=== PATIENT | male | born 1980 | race Caucasian/White ===

== ENCOUNTER 2020-04-08 10:39 | Emergency (ER) | payer MEDICARE, OTHER ==
[~2020-04-08] VITALS: Ht 165.1 cm; Wt 76.1 kg
[2020-04-08 10:45] VITALS: BP 144/89
[2020-04-08 12:31] LABS: BASOPHILS % (AUTO) 0.4 % (0-1); EOSINOPHILS # (AUTO) 0.1 X10'3 (0-0.9); EOSINOPHILS % (AUTO) 1.1 % (0-6); HEMATOCRIT 35.5 % (42.0-52.0); HEMOGLOBIN 12.1 g/dl (14.0-17.9); LYMPHOCYTES # (AUTO) 1.7 X10'3 (1.1-4.8); LYMPHOCYTES % (AUTO) 15.1 % (21-51); MEAN CORPUSCULAR HEMOGLOBIN 32.8 PG (27.0-31.0); MEAN CORPUSCULAR VOLUME 96.4 FL (78-98); MEAN PLATELET VOLUME 7.9 FL (7.4-10.4); MONOCYTES # (AUTO) 2.1 X10'3 (0-0.9); MONOCYTES % (AUTO) 18.1 % (2-12); NEUTROPHILS # (AUTO) 7.5 X10'3 (1.8-7.7); NEUTROPHILS % (AUTO) 65.3 % (42-75); PLATELET COUNT 201 X10'3 (140-440); RED BLOOD COUNT 3.68 X10'6 (4.70-6.10); RED CELL DISTRIBUTION WIDTH 13.3 % (11.5-14.5); WHITE BLOOD COUNT 11.4 X10'3 (4.5-11.0)
[2020-04-08 12:42] LABS: CLARITY,URINE SLIGHTLY CLOUDY (Clear); COLOR,URINE YELLOW (Yellow); GLUCOSE, URINE NEGATIVE (Neg); KETONES,URINE NEGATIVE (Neg); LEUKOCYTE ESTERASE ,URINE SMALL (Neg); NITRITES, URINE POSITIVE (Neg); OCCULT BLOOD,URINE NEGATIVE (Neg); PH,URINE 6.5 (4.8-8.0); PROTEIN,URINE NEGATIVE (Neg)
[2020-04-08 12:44] LABS: ALANINE AMINOTRANSFERASE 38 U/L (12-78); ALBUMIN 3.1 G/DL (3.4-5.0); ALBUMIN/GLOBULIN RATIO 0.6 (1.1-1.5); ALKALINE PHOSPHATASE 94 IU/L (46-116); ANION GAP 10 (8-16); ASPARTATE AMINO TRANSFERASE 36 U/L (10-37); BILIRUBIN,TOTAL 1.2 MG/DL (0.1-1.0); BLOOD UREA NITROGEN 10 MG/DL (7-18); BUN/CREATININE RATIO 13.7 (5.4-32.0); CALCIUM 9.4 MG/DL (8.5-10.1); CHLORIDE 105 MMOL/L (99-107); CREATININE 0.73 MG/DL (0.60-1.10); GLUCOSE 90 MG/DL (70-104); LIPASE < 50 U/L (73-393); POTASSIUM 3.5 MMOL/L (3.5-5.1); SODIUM 139 MMOL/L (135-145); TOTAL CARBON DIOXIDE 24.1 MMOL/L (24-32); eGFR > 90 ML/MIN
[2020-04-08] MEDS ORDERED: BACDS PO (12:51)
[2020-04-08 13:11] LABS: PLATELET ESTIMATE NORMAL; TOTAL CELLS COUNTED 100
[2020-04-08 13:29] LABS: MUCUS STRANDS FEW /LPF (Neg); SQUAMOUS EPITHELIAL CELL,UR FEW /LPF (FEW)
[2020-04-08 13:32] LABS: BACTERIA,URINE 3+ /HPF (Neg); WBC,URINE 0-4 /HPF (0-4)
[2020-04-08 13:34] LABS: RBC,URINE NONE SEEN /HPF (0-2)
[2020-04-08 14:18] LABS: UA COLLECTION TYPE CLN CATCH MIDSTREAM
== END 2020-04-08 13:42 | disposition home or self-care (01) ==
LOC: ER 10:40
DX: T83.518A Infection and inflammatory reaction due to other urinary catheter, initial encounter (principal); N39.0 Urinary tract infection, site not specified; Z88.0 Allergy status to penicillin; Z79.2 Long term (current) use of antibiotics
CPT/HCPCS: 80053; 81001; 83690; 85007; 85025; 87077; 87088; 87186; 99283

== ENCOUNTER 2023-04-03 00:09 | Inpatient (IN) | payer OTHER, MEDICARE ==
[~2023-04-03] VITALS: Ht 177.8 cm; Wt 81.0 kg
[2023-04-03] VITALS (24 sets, daily range): BP systolic 99–152; BP diastolic 50–126; PULSE 85–110; RESP 11–28; O2SAT 93–100
[2023-04-03] MEDS ORDERED: normal saline 1000ML IV soln IVB ONE (00:15)
[2023-04-03] MEDS ORDERED: thiamine 100mg/ml 2ml inj. IV ONE (00:15)
[2023-04-03 00:55] LABS: BASOPHILS # (AUTO) 0.1 X10'3 (0-0.2)
[2023-04-03 00:57] LABS: BASOPHILS % (AUTO) 0.6 % (0-1); EOSINOPHILS % (AUTO) 0.1 % (0-6); HEMATOCRIT 42.1 % (42.0-52.0); HEMOGLOBIN 14.7 g/dl (14.0-17.9); LYMPHOCYTES # (AUTO) 1.8 X10'3 (1.1-4.8); LYMPHOCYTES % (AUTO) 18.7 % (21-51); MEAN CORPUSCULAR HEMOGLOBIN 35.8 PG (27.0-31.0); MEAN CORPUSCULAR HGB CONC 34.9 g/dL (33.0-36.5); MEAN CORPUSCULAR VOLUME 102.7 FL (78-98); MEAN PLATELET VOLUME 9.2 FL (7.4-10.4); MONOCYTES # (AUTO) 1.2 X10'3 (0-0.9); MONOCYTES % (AUTO) 12.9 % (2-12); NEUTROPHILS # (AUTO) 6.5 X10'3 (1.8-7.7); NEUTROPHILS % (AUTO) 67.7 % (42-75); PLATELET COUNT 185 X10'3 (140-440); RED CELL DISTRIBUTION WIDTH 13.4 % (11.5-14.5); WHITE BLOOD COUNT 9.6 X10'3 (4.5-11.0)
[2023-04-03 01:13] LABS: ABG BASE EXCESS -14.3 mmol/L (-2.0-2.0); ABG HCO3 7.9 mmol/L (22.0-26.0); ABG OXYGEN SATURATION 99.9 % (94-97); ABG PCO2 (T) 14.1 mmHg (35.0-48.0); ABG PH (T) 7.362 (7.340-7.440); ABG PO2 (T) 291.5 mmHg (75.0-100.0); ALLEN'S TEST POSITIVE; FCOHb 0.6 % (0.0-3.9); FHHb 0.1 % (0.0-5.0); FMetHb 0.3 % (0.0-1.5); MODE MASK - BIPAP; PATIENT TEMPERATURE 36.3; RESPIRATORY RATE 14 b/min; TOTAL HEMOGLOBIN 15.9 G/dl (14.0-17.9)
[2023-04-03 01:21] LABS: INR 1.2 INR; PROTHROMBIN TIME 12.7 SECONDS (9.0-12.0)
--- NOTE | 2023-04-03 01:45 | NUR ---
aware of critical values
[2023-04-03] MEDS ORDERED: CALCIUM GLUC 1gm/50ml NACL,iso 50 ML IV ONE ×2 (02:00→09:30)
[2023-04-03] MEDS ORDERED: ringers solution, lactated 500ml IV solution IV ONE (02:00)
[2023-04-03] MEDS ORDERED: magnesium 2GM in 50ml NS 50 ML IV ONE (02:00)
[2023-04-03] MEDS ORDERED: ringers solution, lacted 1,000 ML IV ONE ×2 (02:00)
[2023-04-03 02:19] LABS: BILIRUBIN,URINE LARGE (Neg); CLARITY,URINE CLOUDY (Clear); COLOR,URINE AMBER (Yellow); GLUCOSE, URINE 100 mg/dl (Neg); KETONES,URINE TRACE mg/dl (Neg); LEUKOCYTE ESTERASE ,URINE TRACE (Neg); NITRITES, URINE POSITIVE (Neg); OCCULT BLOOD,URINE SMALL (Neg); PROTEIN,URINE 100 mg/dl (Neg)
[2023-04-03 02:25] LABS: UA COLLECTION TYPE FOLEY CATH
[2023-04-03 02:26] LABS: SQUAMOUS EPITHELIAL CELL,UR NONE SEEN /LPF (FEW)
[2023-04-03 02:29] LABS: FINE GRANULAR CAST 0-3 /LPF (NEGATIVE)
[2023-04-03 02:30] LABS: BACTERIA,URINE 4+ /HPF (Neg); RBC,URINE 0-2 /HPF (0-2)
[2023-04-03 04:07] LABS: ALANINE AMINOTRANSFERASE 108 U/L (12-78); ALBUMIN 1.6 G/DL (3.4-5.0); ALKALINE PHOSPHATASE 67 IU/L (46-116); ANION GAP 26 (8-16); ASPARTATE AMINO TRANSFERASE 254 U/L (10-37); BILIRUBIN,TOTAL 4.1 MG/DL (0.1-1.0); BLOOD UREA NITROGEN 60 MG/DL (7-18); BUN/CREATININE RATIO 11.4 (10.0-20.0); CHLORIDE 78 MMOL/L (99-107); CREATININE 5.25 MG/DL (0.60-1.10); ETHANOL < 10 MG/DL (<10); GLUCOSE 80 MG/DL (70-104); eCRCL 19 ML/MIN; eGFR 12 ML/MIN
[2023-04-03 04:24] LABS: ALBUMIN/GLOBULIN RATIO 0.5 (1.1-1.5)
[2023-04-03 04:28] LABS: CREATINE KINASE 2400 U/L (39-308)
[2023-04-03 04:29] LABS: POTASSIUM 5.4 MMOL/L (3.5-5.1)
[2023-04-03 04:36] LABS: SODIUM 115 MMOL/L (135-145); TOTAL CARBON DIOXIDE 10.6 MMOL/L (24-32)
[2023-04-03 04:37] LABS: CALCIUM 5.9 MG/DL (8.5-10.1); MAGNESIUM 0.9 MG/DL (1.5-2.4)
--- NOTE | 2023-04-03 05:10 | NUR ---
Patient in room ICU 2040. I have received report from Ania LEGER and had the opportunity to ask questions and assume patient care. Pt from ER on Alyssa.
[2023-04-03] MEDS ORDERED: magnesium 4gm in 100ml NS 100 ML IV ONE (05:40)
[2023-04-03] MEDS ORDERED: sodium bicarbonate (8.4%) 1 mEq/ml syringe IV ONE (05:40)
[2023-04-03] MEDS ORDERED: vancomycin/NS 1 GM ADD-VANTAGE 250 ML IV ONE (05:40)
[2023-04-03] MEDS ORDERED: sodium bicarbonate (8.4%) 1 mEq/ml syringe ONE (05:52)
[2023-04-03] MEDS ORDERED: piperacillin/tazo 3.375gm/50ml 50 ML IV ONE (05:55)
[2023-04-03] MEDS ORDERED: VANCOMYCIN 1,500MG in normal saline IV soln 300 ML IV ONE (06:00)
--- NOTE | 2023-04-03 06:39 | NUR ---
Patient in room ICU 2040. I have received report from Alyson LEGER and had the opportunity to ask questions and assume patient care.
[2023-04-03] MEDS: sodium bicarbonate (8.4%) inj. 150 MEQ in dextrose 5%-water 1,000 ML IV SCH ×3 (06:53→20:44)
--- NOTE | 2023-04-03 07:08 | NUR ---
Problems reprioritized. Patient report given, questions answered & plan of care reviewed with Karlene LEGER.
[2023-04-03] MEDS: thiamine 100mg/ml 2ml inj. IV SCH ×3 (07:31→20:45)
[2023-04-03] MEDS: heparin, porcine 5000 units/ml vial SQ SCH ×3 (07:31→23:33)
[2023-04-03 07:56] LABS: ALBUMIN 1.4 G/DL (3.4-5.0); ANION GAP 21 (8-16); BLOOD UREA NITROGEN 58 MG/DL (7-18); BUN/CREATININE RATIO 13.2 (10.0-20.0); CHLORIDE 81 MMOL/L (99-107); CREATININE 4.41 MG/DL (0.60-1.10); GLUCOSE 94 MG/DL (70-104); TOTAL CARBON DIOXIDE 15.8 MMOL/L (24-32); eCRCL 22 ML/MIN; eGFR 15 ML/MIN
[2023-04-03] MEDS ORDERED: pantoprazole 40MG/NS 100ML BAG 100 ML IV SCH (08:00)
[2023-04-03] MEDS ORDERED: thiamine 100mg/ml 2ml inj. IV SCH (08:00)
[2023-04-03] MEDS ORDERED: folic acid 1mg/0.2ml inj IV SCH (08:00)
[2023-04-03] MEDS ORDERED: pantoprazole 40 MG vial IV SCH ×2 (08:00)
[2023-04-03 08:03] LABS: POTASSIUM 4.8 MMOL/L (3.5-5.1)
[2023-04-03 08:06] LABS: CALCIUM 5.9 MG/DL (8.5-10.1); SODIUM 118 MMOL/L (135-145)
[2023-04-03 08:08] LABS: NUCLEATED RED BLOOD CELLS 8 /100WBC (0-0); TOTAL CELLS COUNTED 100
[2023-04-03 08:09] LABS: PLATELET ESTIMATE NORMAL
[2023-04-03 08:10] LABS: POLYCHROMASIA 1+; TOXIC VACUOLATION 1+
[2023-04-03] MEDS ORDERED: predniSONE 20 mg tablet PO ONE (09:14)
[2023-04-03 09:59] LABS: C DIFF ANTIGEN NEGATIVE (NEGATIVE); C DIFF SPECIMEN=DIARRHEA? ACCEPTABLE; C DIFFICILE TOXINS A&B NEGATIVE (Neg)
[2023-04-03] MEDS: piperacillin/tazo 3.375gm/50ml 50 ML IV SCH ×2 (10:00→20:14)
[2023-04-03 10:31] LABS: PREALBUMIN 16.2 MG/DL (19-36)
--- NOTE | 2023-04-03 10:49 | NUR ---
Low kimmy: Pt DX septic shock, acute kidney injury, hypomagnesemia and hypocalcemia per EMR. Pt presents with a low kimmy score of 11 per EMR. Per RN physical assessment pt presents with excoriating, bleeding, redness purple area to buttocks, upper thighs, and groin. Wound care has been consulted;pending [facility] note. Pt started on a regular diet today;pending PO intake. LBM on 04/03 of diarrhea via rectal tube per EMR. Will continue to monitor and make recommendations as appropriate. Recommendations: 1.continue regular diet 2.monitor need for ONS/double protein 3.continue multivitamin,thiamine, folic acid due to Etoh hx 4.bowel care per physician; not warranted at this time due to diarrhea 5.weekly scaled wts Addendum: 04/03/23 at [address] Amended: Links added.
[2023-04-03] MEDS ORDERED: LACT1TAB15 PO (15:19)
[2023-04-03] MEDS ORDERED: MULT-1085 PO (15:19)
[2023-04-03] MEDS ORDERED: FOLI0.4T6 PO (15:19)
[2023-04-03] MEDS ORDERED: MELA5CAP PO (15:19)
[2023-04-03] MEDS ORDERED: OXYB5TAB16 PO (15:19)
[2023-04-03] MEDS ORDERED: GABA-530 PO (15:19)
[2023-04-03] MEDS ORDERED: MIDO2.5T14 PO (15:19)
[2023-04-03] MEDS ORDERED: NAPR-56 PO (15:19)
[2023-04-03] MEDS ORDERED: BACL-11 PO (15:19)
[2023-04-03 15:34] LABS: CALCIUM 6.4 MG/DL (8.5-10.1); MAGNESIUM 2.5 MG/DL (1.5-2.4)
[2023-04-03 15:37] LABS: ALBUMIN 1.3 G/DL (3.4-5.0); ANION GAP 18 (8-16); BLOOD UREA NITROGEN 55 MG/DL (7-18); BUN/CREATININE RATIO 15.4 (10.0-20.0); CALCIUM 6.4 MG/DL (8.5-10.1); CHLORIDE 83 MMOL/L (99-107); CREATININE 3.57 MG/DL (0.60-1.10); GLUCOSE 147 MG/DL (70-104); POTASSIUM 3.9 MMOL/L (3.5-5.1); SODIUM 121 MMOL/L (135-145); TOTAL CARBON DIOXIDE 20.5 MMOL/L (24-32); eCRCL 27 ML/MIN; eGFR 19 ML/MIN
[2023-04-03] MEDS ORDERED: midodrine 5mg tablet PO PRN (17:50)
--- NOTE | 2023-04-03 18:16 | NUR ---
Problems reprioritized. Patient report given, questions answered & plan of care reviewed with Alyson LEGER.
--- NOTE | 2023-04-03 18:30 | NUR ---
Patient in room ICU 2040. I have received report from Karlene LEGER and had the opportunity to ask questions and assume patient care.
[2023-04-03 19:05] LABS: ALBUMIN 1.3 G/DL (3.4-5.0); ANION GAP 11 (8-16); BLOOD UREA NITROGEN 54 MG/DL (7-18); BUN/CREATININE RATIO 16.3 (10.0-20.0); CALCIUM 6.3 MG/DL (8.5-10.1); CHLORIDE 83 MMOL/L (99-107); CREATININE 3.31 MG/DL (0.60-1.10); GLUCOSE 170 MG/DL (70-104); POTASSIUM 3.6 MMOL/L (3.5-5.1); SODIUM 121 MMOL/L (135-145); eCRCL 29 ML/MIN; eGFR 20 ML/MIN
--- NOTE | 2023-04-03 20:10 | NUR ---
Wound bed ordered from [facility] bed, per Dr Arenas and Nursing Wire Stitcher Machine Maude.
[2023-04-03] MEDS: baclofen 10mg tablet PO SCH (20:15)
[2023-04-03] MEDS: gabapentin 100mg capsule PO SCH (20:45)
[2023-04-03] MEDS: Melatonin 3mg tablet PO SCH (20:45)
[2023-04-03] MEDS ORDERED: midodrine 5mg tablet PO SCH (21:00)
[2023-04-04] VITALS (24 sets, daily range): BP systolic 109–136; BP diastolic 53–82; PULSE 79–101; RESP 10–26; O2SAT 90–99
[2023-04-04 01:55] LABS: BASOPHILS % (AUTO) 0.4 % (0-1); HEMOGLOBIN 11.3 g/dl (14.0-17.9); PLATELET COUNT 103 X10'3 (140-440); WHITE BLOOD COUNT 4.7 X10'3 (4.5-11.0)
[2023-04-04 01:57] LABS: EOSINOPHILS % (AUTO) 0.5 % (0-6); HEMATOCRIT 31.3 % (42.0-52.0); LYMPHOCYTES # (AUTO) 0.6 X10'3 (1.1-4.8); LYMPHOCYTES % (AUTO) 13.1 % (21-51); MEAN CORPUSCULAR HEMOGLOBIN 36.1 PG (27.0-31.0); MEAN CORPUSCULAR VOLUME 100.3 FL (78-98); MEAN PLATELET VOLUME 9.3 FL (7.4-10.4); MONOCYTES # (AUTO) 0.6 X10'3 (0-0.9); MONOCYTES % (AUTO) 12.3 % (2-12); NEUTROPHILS # (AUTO) 3.5 X10'3 (1.8-7.7); NEUTROPHILS % (AUTO) 73.7 % (42-75); RED BLOOD COUNT 3.12 X10'6 (4.70-6.10); RED CELL DISTRIBUTION WIDTH 13.3 % (11.5-14.5)
[2023-04-04 01:59] LABS: ALANINE AMINOTRANSFERASE 90 U/L (12-78); ALBUMIN 1.3 G/DL (3.4-5.0); ALBUMIN/GLOBULIN RATIO 0.4 (1.1-1.5); ALKALINE PHOSPHATASE 61 IU/L (46-116); ANION GAP 12 (8-16); ASPARTATE AMINO TRANSFERASE 220 U/L (10-37); BILIRUBIN,TOTAL 2.3 MG/DL (0.1-1.0); BLOOD UREA NITROGEN 47 MG/DL (7-18); BUN/CREATININE RATIO 17.6 (10.0-20.0); CALCIUM 6.3 MG/DL (8.5-10.1); CHLORIDE 85 MMOL/L (99-107); CREATININE 2.67 MG/DL (0.60-1.10); GLUCOSE 185 MG/DL (70-104); MAGNESIUM 2.2 MG/DL (1.5-2.4); PHOSPHORUS 3.5 MG/DL (2.3-4.5); SODIUM 127 MMOL/L (135-145); TOTAL CARBON DIOXIDE 30.4 MMOL/L (24-32); TOTAL PROTEIN 4.7 G/DL (6.4-8.2); eCRCL 36 ML/MIN; eGFR 26 ML/MIN
[2023-04-04 02:21] LABS: POTASSIUM 2.9 MMOL/L (3.5-5.1)
[2023-04-04] MEDS: baclofen 10mg tablet PO SCH ×4 (02:24→20:01)
[2023-04-04] MEDS ORDERED: POTASSIUM BICARB 20meq eff tab 20 MEQ TABLET.EFF PO ONE (02:55)
[2023-04-04] MEDS: sodium bicarbonate (8.4%) inj. 150 MEQ in dextrose 5%-water 1,000 ML IV SCH (04:27)
[2023-04-04 04:59] LABS: PLATELET ESTIMATE DECREASED
[2023-04-04 05:01] LABS: LARGE PLATELETS FEW
--- NOTE | 2023-04-04 06:05 | NUR ---
Pt had semi formed stool mid shift that pushed Rectal tube out. Left out until pt again having multiple frequent liquid stools. New tube placed.
--- NOTE | 2023-04-04 06:20 | NUR ---
Problems reprioritized. Patient report given, questions answered & plan of care reviewed with Karlene LEGER.
[2023-04-04] MEDS ORDERED: folic acid 0.4mg tablet PO SCH (08:00)
[2023-04-04 08:15] LABS: TOTAL CELLS COUNTED 100
[2023-04-04 08:16] LABS: NUCLEATED RED BLOOD CELLS 4 /100WBC (0-0)
[2023-04-04] MEDS: gabapentin 100mg capsule PO SCH ×3 (08:30→20:01)
[2023-04-04] MEDS: pantoprazole 40mg Tablet.DR PO SCH (08:30)
[2023-04-04] MEDS: heparin, porcine 5000 units/ml vial SQ SCH ×2 (08:31→15:07)
[2023-04-04] MEDS: predniSONE 20 mg tablet PO SCH (08:32)
[2023-04-04] MEDS: thiamine 100mg/ml 2ml inj. IV SCH ×3 (08:36→20:02)
[2023-04-04 08:48] LABS: ALANINE AMINOTRANSFERASE 85 U/L (12-78); ALBUMIN 1.3 G/DL (3.4-5.0); ALBUMIN/GLOBULIN RATIO 0.4 (1.1-1.5); ALKALINE PHOSPHATASE 61 IU/L (46-116); ANION GAP 8 (8-16); ASPARTATE AMINO TRANSFERASE 195 U/L (10-37); BILIRUBIN,TOTAL 2.1 MG/DL (0.1-1.0); BLOOD UREA NITROGEN 39 MG/DL (7-18); BUN/CREATININE RATIO 17.9 (10.0-20.0); CALCIUM 6.3 MG/DL (8.5-10.1); CHLORIDE 85 MMOL/L (99-107); CREATININE 2.18 MG/DL (0.60-1.10); GLUCOSE 190 MG/DL (70-104); SODIUM 129 MMOL/L (135-145); TOTAL CARBON DIOXIDE 35.6 MMOL/L (24-32); TOTAL PROTEIN 4.8 G/DL (6.4-8.2); eCRCL 45 ML/MIN; eGFR 33 ML/MIN
[2023-04-04 08:50] LABS: POTASSIUM 2.7 MMOL/L (3.5-5.1)
[2023-04-04] MEDS ORDERED: potassium Cl 40MEQ/1/2NS 520ml 520 ML IV PRN (08:55)
[2023-04-04] MEDS ORDERED: magnesium 4gm in 100ml NS 100 ML IV PRN (08:55)
[2023-04-04] MEDS ORDERED: magnesium 2GM in 50ml NS 50 ML IV PRN (08:55)
[2023-04-04] MEDS ORDERED: magnesium Cl slow-release 64mg tablet PO PRN (08:55)
[2023-04-04] MEDS ORDERED: potassium Cl 20 mEq SR tablet PO PRN (08:55)
[2023-04-04] MEDS: potassium Cl 20 mEq SR tablet PO PRN ×3 (09:06→20:01)
[2023-04-04] MEDS: piperacillin/tazo 3.375gm/50ml 50 ML IV SCH ×2 (09:06→19:59)
--- NOTE | 2023-04-04 18:40 | NUR ---
Problems reprioritized. Patient report given, questions answered & plan of care reviewed with Americo LEGER.
[2023-04-04] MEDS: Melatonin 3mg tablet PO SCH (20:01)
[2023-04-04] MEDS: K and/or MAG REPLACEMENT MC SCH (20:02)
[2023-04-05] VITALS (10 sets, daily range): BP systolic 107–140; BP diastolic 69–86; PULSE 92–108; RESP 13–20; O2SAT 92–97
[2023-04-05] MEDS: heparin, porcine 5000 units/ml vial SQ SCH ×3 (00:25→15:59)
[2023-04-05] MEDS: baclofen 10mg tablet PO SCH ×4 (00:25→19:37)
[2023-04-05 06:13] LABS: EOSINOPHILS % (AUTO) 0.5 % (0-6); HEMATOCRIT 32.8 % (42.0-52.0); HEMOGLOBIN 11.4 g/dl (14.0-17.9); MONOCYTES # (AUTO) 1.8 X10'3 (0-0.9); PLATELET COUNT 117 X10'3 (140-440); WHITE BLOOD COUNT 8.4 X10'3 (4.5-11.0)
[2023-04-05 06:15] LABS: BASOPHILS % (AUTO) 0.1 % (0-1); LYMPHOCYTES # (AUTO) 1.6 X10'3 (1.1-4.8); LYMPHOCYTES % (AUTO) 18.7 % (21-51); MEAN CORPUSCULAR HEMOGLOBIN 36.2 PG (27.0-31.0); MEAN CORPUSCULAR HGB CONC 34.9 g/dL (33.0-36.5); MEAN CORPUSCULAR VOLUME 103.7 FL (78-98); MEAN PLATELET VOLUME 9.5 FL (7.4-10.4); MONOCYTES % (AUTO) 21.3 % (2-12); NEUTROPHILS % (AUTO) 59.4 % (42-75); RED BLOOD COUNT 3.16 X10'6 (4.70-6.10); RED CELL DISTRIBUTION WIDTH 13.6 % (11.5-14.5)
[2023-04-05 06:38] LABS: ALANINE AMINOTRANSFERASE 99 U/L (12-78); ALBUMIN 1.4 G/DL (3.4-5.0); ALBUMIN/GLOBULIN RATIO 0.4 (1.1-1.5); ALKALINE PHOSPHATASE 108 IU/L (46-116); ANION GAP 9 (8-16); ASPARTATE AMINO TRANSFERASE 177 U/L (10-37); BILIRUBIN,TOTAL 1.6 MG/DL (0.1-1.0); BLOOD UREA NITROGEN 28 MG/DL (7-18); BUN/CREATININE RATIO 17.2 (10.0-20.0); CALCIUM 6.3 MG/DL (8.5-10.1); CHLORIDE 94 MMOL/L (99-107); CREATININE 1.63 MG/DL (0.60-1.10); GLUCOSE 172 MG/DL (70-104); POTASSIUM 3.1 MMOL/L (3.5-5.1); SODIUM 132 MMOL/L (135-145); TOTAL CARBON DIOXIDE 28.6 MMOL/L (24-32); TOTAL PROTEIN 5.2 G/DL (6.4-8.2); eCRCL 60 ML/MIN; eGFR 46 ML/MIN
[2023-04-05 06:52] LABS: PHOSPHORUS 0.9 MG/DL (2.3-4.5)
[2023-04-05 07:12] LABS: NUCLEATED RED BLOOD CELLS 4 /100WBC (0-0); PLATELET ESTIMATE DECREASED; TOTAL CELLS COUNTED 100
[2023-04-05 07:13] LABS: LARGE PLATELETS FEW
[2023-04-05 07:14] LABS: POLYCHROMASIA FEW
[2023-04-05] MEDS: K and/or MAG REPLACEMENT MC SCH ×2 (08:00→20:00)
[2023-04-05] MEDS: piperacillin/tazo 3.375gm/50ml 50 ML IV SCH (09:21)
[2023-04-05] MEDS: thiamine 100mg/ml 2ml inj. IV SCH ×3 (09:22→19:38)
[2023-04-05] MEDS: predniSONE 20 mg tablet PO SCH (09:22)
[2023-04-05] MEDS: gabapentin 100mg capsule PO SCH ×3 (09:22→19:36)
[2023-04-05] MEDS: pantoprazole 40mg Tablet.DR PO SCH (09:22)
--- NOTE | 2023-04-05 10:55 | NUR ---
Reassessment: Pt seen by wound care, per note pt with a DTI to sacrum and ischium with MASD to scrotum and superior sacrum. Pt continues on a regular diet with improving PO intake, documented with 25% PO intake of first meal up to ~63% PO intake the following two meals with 75% PO intake of the two most recent meals, overall averaging 60% PO intake since admit. Recommend monitoring further trends in PO intake so most appropriate nutrition intervention can be implemented given improving PO intake. LBM 04/04, documented with diarrhea. Pt currently not receiving routine bowel care though would likely benefit from probiotic and/or antidiarrheal if pt continues with diarrhea. Will continue to follow and make recommendations as appropriate. Recommendations: 1. Continue regular diet 2. Monitor need for ONS/additional protein 3. Continue banana bag d/t EtOH hx 4. Bowel care per physician; consider probiotic and/or antidiarrheal if pt continues with diarrhea 5. Daily scaled wts per rx Addendum: 04/05/23 at [address] Amended: Links added.
[2023-04-05] MEDS: MVI, adult No.4 with vit. K 10 ML in dextrose 5% water 500ml 500 ML IV SCH ×2 (15:41)
[2023-04-05] MEDS: CefTRIAXone/D5W-Rocephin 1gm 50 ML IV SCH (18:04)
[2023-04-05] MEDS: normal saline 1000ml 1,000 ML IV SCH (18:30)
--- NOTE | 2023-04-05 18:30 | NUR ---
Patient in room ICU 2040. I have received report from Piter LEGER and had the opportunity to ask questions and assume patient care.
--- NOTE | 2023-04-05 18:40 | NUR ---
Problems reprioritized. Patient report given, questions answered & plan of care reviewed with ARSEN Shields.
[2023-04-05 19:07] LABS: HBSAG SCREEN Negative (Negative); HEP B CORE AB, IGM Negative (Negative); HEP B CORE AB, TOT Negative (Negative)
[2023-04-05] MEDS: Melatonin 3mg tablet PO SCH (19:36)
[2023-04-05 19:51] LABS: MAGNESIUM 1.7 MG/DL (1.5-2.4)
[2023-04-05] MEDS ORDERED: sodium phosphate inj. 15 MMOL in dextrose 5%-water 250 ML IV PRN (21:45)
[2023-04-05] MEDS: sodium phosphate inj. 30 MMOL in dextrose 5%-water 250 ML IV PRN (22:10)
[2023-04-06] VITALS (9 sets, daily range): BP systolic 119–155; BP diastolic 71–98; PULSE 87–106; RESP 10–18; TEMP 97–100; O2SAT 94–99
[2023-04-06] MEDS: heparin, porcine 5000 units/ml vial SQ SCH ×3 (00:26→17:36)
[2023-04-06] MEDS: baclofen 10mg tablet PO SCH ×4 (01:51→21:05)
[2023-04-06] MEDS: LORazepam 1 MG tablet PO PRN ×2 (03:02→05:11)
[2023-04-06] MEDS: normal saline 1000ml 1,000 ML IV SCH ×2 (03:04→17:39)
--- NOTE | 2023-04-06 06:28 | NUR ---
Problems reprioritized. Patient report given, questions answered & plan of care reviewed with Jayna LEGER.
--- NOTE | 2023-04-06 06:30 | NUR ---
Assumed care of pt after report from Alyson LEGER.
[2023-04-06] MEDS: K and/or MAG REPLACEMENT MC SCH ×2 (08:00→20:00)
[2023-04-06] MEDS: pantoprazole 40mg Tablet.DR PO SCH (08:06)
[2023-04-06] MEDS: CefTRIAXone/D5W-Rocephin 1gm 50 ML IV SCH (08:08)
[2023-04-06 08:44] LABS: BASOPHILS % (AUTO) 0.1 % (0-1); HEMOGLOBIN 11.2 g/dl (14.0-17.9); LYMPHOCYTES # (AUTO) 1.9 X10'3 (1.1-4.8); LYMPHOCYTES % (AUTO) 20.5 % (21-51); MEAN PLATELET VOLUME 8.5 FL (7.4-10.4); NEUTROPHILS # (AUTO) 5.7 X10'3 (1.8-7.7)
[2023-04-06 08:45] LABS: EOSINOPHILS % (AUTO) 0.4 % (0-6); HEMATOCRIT 33.2 % (42.0-52.0); MEAN CORPUSCULAR HEMOGLOBIN 35.8 PG (27.0-31.0); MEAN CORPUSCULAR HGB CONC 33.9 g/dL (33.0-36.5); MEAN CORPUSCULAR VOLUME 105.7 FL (78-98); MONOCYTES # (AUTO) 1.6 X10'3 (0-0.9); MONOCYTES % (AUTO) 17.2 % (2-12); NEUTROPHILS % (AUTO) 61.8 % (42-75); PLATELET COUNT 120 X10'3 (140-440); RED BLOOD COUNT 3.14 X10'6 (4.70-6.10); RED CELL DISTRIBUTION WIDTH 13.6 % (11.5-14.5); WHITE BLOOD COUNT 9.2 X10'3 (4.5-11.0)
[2023-04-06] MEDS: thiamine 100mg/ml 2ml inj. IV SCH ×3 (08:57→21:09)
[2023-04-06 08:59] LABS: ALANINE AMINOTRANSFERASE 150 U/L (12-78); ALBUMIN 1.6 G/DL (3.4-5.0); ALBUMIN/GLOBULIN RATIO 0.5 (1.1-1.5); ALKALINE PHOSPHATASE 108 IU/L (46-116); ANION GAP 5 (8-16); ASPARTATE AMINO TRANSFERASE 200 U/L (10-37); BLOOD UREA NITROGEN 15 MG/DL (7-18); BUN/CREATININE RATIO 15.3 (10.0-20.0); CALCIUM 6.4 MG/DL (8.5-10.1); CHLORIDE 104 MMOL/L (99-107); CREATININE 0.98 MG/DL (0.60-1.10); GLUCOSE 139 MG/DL (70-104); MAGNESIUM 1.6 MG/DL (1.5-2.4); PHOSPHORUS 2.4 MG/DL (2.3-4.5); SODIUM 136 MMOL/L (135-145); TOTAL CARBON DIOXIDE 26.6 MMOL/L (24-32); eCRCL 99 ML/MIN; eGFR 83 ML/MIN
[2023-04-06] MEDS: gabapentin 100mg capsule PO SCH ×3 (08:59→21:04)
[2023-04-06] MEDS: predniSONE 20 mg tablet PO SCH (09:00)
[2023-04-06 09:04] LABS: POTASSIUM 2.9 MMOL/L (3.5-5.1)
--- NOTE | 2023-04-06 09:30 | NUR ---
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
[2023-04-06] MEDS: potassium Cl 20 mEq SR tablet PO PRN ×3 (09:35→17:52)
--- NOTE | 2023-04-06 10:01 | NUR ---
WOC NOTE: Per medical records, this is a 42 year old male, who is paraplegic, presenting to ED via EMS for shortness of breath that began last night. Patient is normally WC bound per caregiver. Resides at home. Caregiver reports SOB x 2 days, reports the patient does not complain that often about SOB but that he was progressively getting worse and worse. Admit for septic shock. Past Medical Hx UTI. Social Hx positive for alcohol abuse, apparently he has not eaten in 5 days. Wound care in for skin assessment secondary to nursing consult for multiple pressure type wounds. The patient is receiving wolf-care by primary nurse at WOC arrival. ID by name and / medical band. He has deep pressure area noted across the sacrum, as well as deep pressure areas of the L & R ischium. Sacral DTI presents as intact, non-blanching, reddish purple skin. Deep red and blanching bleeding skin also noted from superior sacrum to the posterior bilateral thighs, with firmly edematous skin, consistent with MASD secondary to loose stools. Areas present smaller today and appear to be healing. He is on a specialty bed as well, with a frequent turning schedule and wolf-care per primary nurse. The remainder of the skin exam was unremarkable. Due to limited mobility, nutrition and comorbidities, patient continues to be at high risk for skin breakdown. Reported off to primary nurse at the bedside. Prevent silicone cream provided x2 bottles. Instructed this cream was formerly known as INZO cream, it has a new name and packaging (Prevent Silicone Cream). [facility] will continue to monitor patients progress. Left in the care of primary nurse.
[2023-04-06 10:24] LABS: NUCLEATED RED BLOOD CELLS 4 /100WBC (0-0); PLATELET ESTIMATE DECREASED; TOTAL CELLS COUNTED 100
[2023-04-06 10:25] LABS: STOMATOCYTES 1+
--- NOTE | 2023-04-06 11:40 | NUR ---
Pt's granddaughter visited this morning, after speaking mily Mathews RN, [facility], on the phone and in person. After seeing how well the pt moved w/o getting very SOB, Karlene, agreed to take her grandmother home. Waiting for O2 so pt can go home. Pt was given a walker to use. Addendum: 04/06/23 at 1253 by Jayna NOVA RN Disregard note; wrong pt.
--- NOTE | 2023-04-06 12:30 | NUR ---
Pt sleeping again after be cleaned and repositioned w/ RNs and wound care nurses.
--- NOTE | 2023-04-06 12:44 | NUR ---
O2 rep is here educating pt about the tank. Addendum: 04/06/23 at 1246 by Jayna NOVA RN Disregard note; wrong pt.
[2023-04-06] MEDS: acetaminophen 325mg tablet PO PRN (17:52)
--- NOTE | 2023-04-06 18:30 | NUR ---
Patient in room ICU 2040. I have received report from Jayna LEGER and had the opportunity to ask questions and assume patient care.
--- NOTE | 2023-04-06 19:17 | NUR ---
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
--- NOTE | 2023-04-06 19:40 | NUR ---
Pt transferred from ICU to PCU in his bed with an air mattress. Pt has DTI to his groin, coccyx, and bilateral posterior thighs, wound care is following. Pt is A+O x4, PIV to right hand 22G with NS infusing and a 18G to the LAC that is SL. Pt denies pain/discomfort at this time. VSS.
[2023-04-06] MEDS: Melatonin 3mg tablet PO SCH (21:04)
[2023-04-07] VITALS (7 sets, daily range): BP systolic 132–153; BP diastolic 74–98; PULSE 84–107; RESP 16–20; TEMP 97.8–99; O2SAT 94–97
[2023-04-07] MEDS: LORazepam 1 MG tablet PO PRN (01:14)
[2023-04-07] MEDS: heparin, porcine 5000 units/ml vial SQ SCH ×3 (01:14→15:31)
[2023-04-07] MEDS: baclofen 10mg tablet PO SCH ×4 (01:15→20:53)
[2023-04-07] MEDS: normal saline 1000ml 1,000 ML IV SCH ×3 (04:44→17:22)
--- NOTE | 2023-04-07 06:27 | NUR ---
Problems reprioritized. Patient report given, questions answered & plan of care reviewed with Juanjo LEGER. Pt stable at shift change.
--- NOTE | 2023-04-07 06:32 | NUR ---
Patient in room PCU 3017. I have received report from WILBUR LEGER and had the opportunity to ask questions and assume patient care.
[2023-04-07 07:25] LABS: ALANINE AMINOTRANSFERASE 131 U/L (12-78); ALBUMIN 1.5 G/DL (3.4-5.0); ALBUMIN/GLOBULIN RATIO 0.5 (1.1-1.5); ALKALINE PHOSPHATASE 99 IU/L (46-116); ANION GAP 10 (8-16); ASPARTATE AMINO TRANSFERASE 114 U/L (10-37); BILIRUBIN,TOTAL 0.9 MG/DL (0.1-1.0); BLOOD UREA NITROGEN 19 MG/DL (7-18); BUN/CREATININE RATIO 22.6 (10.0-20.0); CALCIUM 6.6 MG/DL (8.5-10.1); CHLORIDE 107 MMOL/L (99-107); CREATININE 0.84 MG/DL (0.60-1.10); GLUCOSE 92 MG/DL (70-104); MAGNESIUM 1.3 MG/DL (1.5-2.4); PHOSPHORUS 1.3 MG/DL (2.3-4.5); POTASSIUM 4.3 MMOL/L (3.5-5.1); SODIUM 137 MMOL/L (135-145); TOTAL CARBON DIOXIDE 20.5 MMOL/L (24-32); TOTAL PROTEIN 4.7 G/DL (6.4-8.2); eCRCL 107 ML/MIN; eGFR > 90 ML/MIN
[2023-04-07] MEDS: CefTRIAXone/D5W-Rocephin 1gm 50 ML IV SCH (07:49)
[2023-04-07] MEDS: thiamine 100mg/ml 2ml inj. IV SCH ×3 (07:49→20:53)
[2023-04-07] MEDS: predniSONE 20 mg tablet PO SCH (07:50)
[2023-04-07] MEDS: pantoprazole 40mg Tablet.DR PO SCH (07:51)
[2023-04-07] MEDS: gabapentin 100mg capsule PO SCH ×3 (07:51→20:53)
[2023-04-07] MEDS: K and/or MAG REPLACEMENT MC SCH ×2 (08:00→20:00)
--- NOTE | 2023-04-07 10:26 | NUR ---
Reassessment: PO intake slightly fluctuates, documented with mostly 100% PO intake however down to average 44% PO intake x 2 meals making average PO intake 82% since 04/05 which meets 100% estimated energy needs and 75% estimated protein needs. LBM 04/07 per EMR. No nutrition intervention implemented at this time. Will continue to follow and make recommendations as appropriate. Recommendations: 1. Continue regular diet 2. Monitor need for ONS/additional protein 3. Continue banana bag d/t EtOH hx 4. Bowel care per physician 5. Daily scaled wts per rx Addendum: 04/07/23 at [address] Amended: Links added.
[2023-04-07] MEDS ORDERED: magnesium 2GM in 50ml NS 50 ML IV PRN (10:45)
[2023-04-07] MEDS ORDERED: magnesium 4gm in 100ml NS 100 ML IV PRN (10:45)
[2023-04-07] MEDS: magnesium Cl slow-release 64mg tablet PO PRN (11:37)
[2023-04-07] MEDS: sodium phosphate inj. 30 MMOL in dextrose 5%-water 250 ML IV PRN (11:37)
[2023-04-07] MEDS: loperamide 2mg capsule PO PRN (14:39)
--- NOTE | 2023-04-07 18:31 | NUR ---
Problems reprioritized. Patient report given TO ARASH LEGER, questions answered & plan of care reviewed with .
[2023-04-07] MEDS: Melatonin 3mg tablet PO SCH (20:54)
[2023-04-08] VITALS (8 sets, daily range): BP systolic 105–142; BP diastolic 60–86; PULSE 89–99; RESP 14–20; TEMP 98–99.7; O2SAT 93–98
[2023-04-08] MEDS: heparin, porcine 5000 units/ml vial SQ SCH ×3 (00:30→15:16)
[2023-04-08] MEDS: baclofen 10mg tablet PO SCH ×4 (02:05→20:10)
[2023-04-08] MEDS: magnesium Cl slow-release 64mg tablet PO PRN ×2 (03:34→15:15)
[2023-04-08] MEDS: loperamide 2mg capsule PO PRN (03:57)
--- NOTE | 2023-04-08 06:46 | NUR ---
Problems reprioritized. Patient report given, questions answered & plan of care reviewed with ARSEN Grewal.
[2023-04-08] MEDS: K and/or MAG REPLACEMENT MC SCH ×2 (08:00→20:00)
[2023-04-08 08:30] LABS: BASOPHILS % (AUTO) 0.3 % (0-1); HEMOGLOBIN 10.5 g/dl (14.0-17.9); NEUTROPHILS # (AUTO) 6.2 X10'3 (1.8-7.7)
[2023-04-08 08:31] LABS: EOSINOPHILS # (AUTO) 0.1 X10'3 (0-0.9); EOSINOPHILS % (AUTO) 0.7 % (0-6); HEMATOCRIT 31.2 % (42.0-52.0); LYMPHOCYTES # (AUTO) 2.4 X10'3 (1.1-4.8); LYMPHOCYTES % (AUTO) 24.7 % (21-51); MEAN CORPUSCULAR HEMOGLOBIN 35.9 PG (27.0-31.0); MEAN CORPUSCULAR HGB CONC 33.6 g/dL (33.0-36.5); MEAN CORPUSCULAR VOLUME 106.9 FL (78-98); MEAN PLATELET VOLUME 8.5 FL (7.4-10.4); MONOCYTES % (AUTO) 10.3 % (2-12); PLATELET COUNT 219 X10'3 (140-440); RED BLOOD COUNT 2.92 X10'6 (4.70-6.10); RED CELL DISTRIBUTION WIDTH 13.8 % (11.5-14.5); WHITE BLOOD COUNT 9.7 X10'3 (4.5-11.0)
[2023-04-08 08:58] LABS: ALANINE AMINOTRANSFERASE 107 U/L (12-78); ALBUMIN 1.6 G/DL (3.4-5.0); ALBUMIN/GLOBULIN RATIO 0.6 (1.1-1.5); ALKALINE PHOSPHATASE 89 IU/L (46-116); ANION GAP 10 (8-16); ASPARTATE AMINO TRANSFERASE 87 U/L (10-37); BILIRUBIN,TOTAL 0.7 MG/DL (0.1-1.0); BLOOD UREA NITROGEN 19 MG/DL (7-18); BUN/CREATININE RATIO 24.4 (10.0-20.0); CALCIUM 6.9 MG/DL (8.5-10.1); CHLORIDE 109 MMOL/L (99-107); CREATININE 0.78 MG/DL (0.60-1.10); GLUCOSE 80 MG/DL (70-104); POTASSIUM 3.7 MMOL/L (3.5-5.1); SODIUM 139 MMOL/L (135-145); TOTAL CARBON DIOXIDE 19.7 MMOL/L (24-32); TOTAL PROTEIN 4.5 G/DL (6.4-8.2); eCRCL 125 ML/MIN; eGFR > 90 ML/MIN
[2023-04-08] MEDS ORDERED: Neutra Phos packet PO PRN (09:15)
[2023-04-08] MEDS ORDERED: sodium phosphate inj. 30 MMOL in dextrose 5%-water 250 ML IV PRN (09:15)
[2023-04-08] MEDS ORDERED: sodium phosphate inj. 15 MMOL in dextrose 5%-water 250 ML IV PRN (09:15)
[2023-04-08 09:31] LABS: PLATELET ESTIMATE NORMAL; STOMATOCYTES 2+; TOTAL CELLS COUNTED 100
[2023-04-08] MEDS: MVI, adult No.4 with vit. K 10 ML in dextrose 5% water 500ml 500 ML IV SCH ×2 (09:33)
[2023-04-08] MEDS: pantoprazole 40mg Tablet.DR PO SCH (09:36)
[2023-04-08] MEDS: acetaminophen 325mg tablet PO PRN (09:36)
[2023-04-08] MEDS: CefTRIAXone/D5W-Rocephin 1gm 50 ML IV SCH (09:36)
[2023-04-08] MEDS: predniSONE 20 mg tablet PO SCH (09:37)
[2023-04-08] MEDS: gabapentin 100mg capsule PO SCH ×3 (09:37→21:13)
[2023-04-08] MEDS: normal saline 1000ml 1,000 ML IV SCH ×2 (09:50→19:47)
[2023-04-08 11:22] LABS: MAGNESIUM 1.3 MG/DL (1.5-2.4)
--- NOTE | 2023-04-08 15:10 | NUR ---
Resident made aware that pt in 1010 bottom pain. States he will put in orders for pain relief.
[2023-04-08] MEDS: HYDROcodone/acetaminophen 10/325mg tab PO PRN (15:16)
--- NOTE | 2023-04-08 18:16 | NUR ---
Gave report to Sadia Seaman RN.
--- NOTE | 2023-04-08 18:20 | NUR ---
Patient in room PCU 3017. I have received report from ARSEN GONZALEZ and had the opportunity to ask questions and assume patient care.
[2023-04-08] MEDS: Melatonin 3mg tablet PO SCH (21:14)
[2023-04-09] VITALS (8 sets, daily range): BP systolic 130–148; BP diastolic 73–95; PULSE 85–98; RESP 12–27; TEMP 96.7–99.9; O2SAT 95–100
[2023-04-09] MEDS: heparin, porcine 5000 units/ml vial SQ SCH ×3 (00:28→16:12)
[2023-04-09] MEDS: magnesium Cl slow-release 64mg tablet PO PRN ×3 (00:28→20:52)
[2023-04-09] MEDS: baclofen 10mg tablet PO SCH ×4 (02:17→20:43)
--- NOTE | 2023-04-09 06:15 | NUR ---
Problems reprioritized. Patient report given, questions answered & plan of care reviewed with ARSEN MCCULLOUGH.
--- NOTE | 2023-04-09 06:36 | NUR ---
Problems reprioritized. Patient report given, questions answered & plan of care reviewed with ARSEN MCCULLOUGH.
--- NOTE | 2023-04-09 06:39 | NUR ---
Patient in room PCU 3012. I have received report from Simeon LEGER and had the opportunity to ask questions and assume patient care.
[2023-04-09] MEDS: normal saline 1000ml 1,000 ML IV SCH ×2 (07:09→15:50)
[2023-04-09 07:10] LABS: ALANINE AMINOTRANSFERASE 97 U/L (12-78); ALBUMIN 1.6 G/DL (3.4-5.0); ALBUMIN/GLOBULIN RATIO 0.6 (1.1-1.5); ALKALINE PHOSPHATASE 78 IU/L (46-116); ANION GAP 12 (8-16); ASPARTATE AMINO TRANSFERASE 66 U/L (10-37); BILIRUBIN,TOTAL 0.6 MG/DL (0.1-1.0); BLOOD UREA NITROGEN 19 MG/DL (7-18); BUN/CREATININE RATIO 29.2 (10.0-20.0); CALCIUM 7.1 MG/DL (8.5-10.1); CHLORIDE 108 MMOL/L (99-107); CREATININE 0.65 MG/DL (0.60-1.10); GLUCOSE 80 MG/DL (70-104); PHOSPHORUS 3.3 MG/DL (2.3-4.5); POTASSIUM 3.7 MMOL/L (3.5-5.1); SODIUM 140 MMOL/L (135-145); TOTAL CARBON DIOXIDE 20.4 MMOL/L (24-32); TOTAL PROTEIN 4.5 G/DL (6.4-8.2); eCRCL 150 ML/MIN; eGFR > 90 ML/MIN
[2023-04-09 08:00] LABS: BASOPHILS % (AUTO) 0.5 % (0-1); EOSINOPHILS % (AUTO) 0.4 % (0-6); HEMATOCRIT 30.9 % (42.0-52.0); HEMOGLOBIN 10.3 g/dl (14.0-17.9); LYMPHOCYTES # (AUTO) 2.3 X10'3 (1.1-4.8); LYMPHOCYTES % (AUTO) 27.2 % (21-51); MEAN CORPUSCULAR HGB CONC 33.5 g/dL (33.0-36.5); MEAN CORPUSCULAR VOLUME 107.6 FL (78-98); MEAN PLATELET VOLUME 8.5 FL (7.4-10.4); MONOCYTES # (AUTO) 0.8 X10'3 (0-0.9); MONOCYTES % (AUTO) 9.9 % (2-12); NEUTROPHILS # (AUTO) 5.2 X10'3 (1.8-7.7); PLATELET COUNT 248 X10'3 (140-440); RED BLOOD COUNT 2.87 X10'6 (4.70-6.10); RED CELL DISTRIBUTION WIDTH 14.3 % (11.5-14.5); WHITE BLOOD COUNT 8.4 X10'3 (4.5-11.0)
[2023-04-09] MEDS: K and/or MAG REPLACEMENT MC SCH ×2 (08:00→20:00)
[2023-04-09] MEDS: CefTRIAXone/D5W-Rocephin 1gm 50 ML IV SCH (08:35)
[2023-04-09] MEDS: pantoprazole 40mg Tablet.DR PO SCH (08:36)
[2023-04-09] MEDS: HYDROcodone/acetaminophen 10/325mg tab PO PRN (08:36)
[2023-04-09] MEDS: predniSONE 20 mg tablet PO SCH (08:36)
[2023-04-09] MEDS: gabapentin 100mg capsule PO SCH ×3 (08:36→20:43)
[2023-04-09 08:37] LABS: NUCLEATED RED BLOOD CELLS 1 /100WBC (0-0); TOTAL CELLS COUNTED 100
[2023-04-09 08:38] LABS: PLATELET ESTIMATE NORMAL
[2023-04-09 08:39] LABS: STOMATOCYTES 2+; TEAR DROP CELLS 1+
[2023-04-09 11:07] LABS: MAGNESIUM 1.4 MG/DL (1.5-2.4)
--- NOTE | 2023-04-09 18:11 | NUR ---
Problems reprioritized. Patient report given, questions answered & plan of care reviewed with Sadia Seaman RN.
--- NOTE | 2023-04-09 18:15 | NUR ---
Patient in room PCU 3017. I have received report from ARSEN MCCULLOUGH and had the opportunity to ask questions and assume patient care.
[2023-04-09] MEDS: Melatonin 3mg tablet PO SCH (20:44)
[2023-04-10] VITALS (7 sets, daily range): BP systolic 128–159; BP diastolic 72–90; PULSE 80–93; RESP 15–20; TEMP 97.1–99.2; O2SAT 93–97
[2023-04-10] MEDS: heparin, porcine 5000 units/ml vial SQ SCH ×3 (00:16→16:21)
[2023-04-10] MEDS: normal saline 1000ml 1,000 ML IV SCH (00:18)
[2023-04-10] MEDS: baclofen 10mg tablet PO SCH ×4 (02:10→20:17)
[2023-04-10 06:13] LABS: HEMOGLOBIN 10.4 g/dl (14.0-17.9)
--- NOTE | 2023-04-10 06:15 | NUR ---
Problems reprioritized. Patient report given, questions answered & plan of care reviewed with ARSEN MCCULLOUGH.
--- NOTE | 2023-04-10 06:16 | NUR ---
Patient in room PCU 3017. I have received report from Sadia Seaamn RN and had the opportunity to ask questions and assume patient care.
[2023-04-10 06:17] LABS: BASOPHILS % (AUTO) 0.2 % (0-1); EOSINOPHILS % (AUTO) 0.2 % (0-6); HEMATOCRIT 31.2 % (42.0-52.0); LYMPHOCYTES % (AUTO) 25.2 % (21-51); MEAN CORPUSCULAR HGB CONC 33.2 g/dL (33.0-36.5); MEAN CORPUSCULAR VOLUME 108.3 FL (78-98); MEAN PLATELET VOLUME 8.1 FL (7.4-10.4); MONOCYTES # (AUTO) 0.7 X10'3 (0-0.9); MONOCYTES % (AUTO) 8.8 % (2-12); NEUTROPHILS # (AUTO) 5.1 X10'3 (1.8-7.7); NEUTROPHILS % (AUTO) 65.6 % (42-75); PLATELET COUNT 290 X10'3 (140-440); RED BLOOD COUNT 2.88 X10'6 (4.70-6.10); RED CELL DISTRIBUTION WIDTH 14.1 % (11.5-14.5); WHITE BLOOD COUNT 7.8 X10'3 (4.5-11.0)
[2023-04-10 06:41] LABS: ANION GAP 10 (8-16); BLOOD UREA NITROGEN 20 MG/DL (7-18); CALCIUM 7.6 MG/DL (8.5-10.1); CHLORIDE 110 MMOL/L (99-107); CREATININE 0.74 MG/DL (0.60-1.10); GLUCOSE 83 MG/DL (70-104); POTASSIUM 3.7 MMOL/L (3.5-5.1); SODIUM 141 MMOL/L (135-145); TOTAL CARBON DIOXIDE 21.3 MMOL/L (24-32); eCRCL 132 ML/MIN; eGFR > 90 ML/MIN
[2023-04-10 06:42] LABS: ALANINE AMINOTRANSFERASE 97 U/L (12-78); ALBUMIN 1.8 G/DL (3.4-5.0); ALBUMIN/GLOBULIN RATIO 0.6 (1.1-1.5); ALKALINE PHOSPHATASE 83 IU/L (46-116); ASPARTATE AMINO TRANSFERASE 75 U/L (10-37); BILIRUBIN,TOTAL 0.6 MG/DL (0.1-1.0); PHOSPHORUS 3.6 MG/DL (2.3-4.5); TOTAL PROTEIN 4.8 G/DL (6.4-8.2)
[2023-04-10 06:51] LABS: PLATELET ESTIMATE NORMAL; STOMATOCYTES 1+; TEAR DROP CELLS FEW; TOTAL CELLS COUNTED 100
[2023-04-10 07:03] LABS: MAGNESIUM 1.6 MG/DL (1.5-2.4)
[2023-04-10] MEDS: K and/or MAG REPLACEMENT MC SCH ×2 (08:00→20:00)
[2023-04-10] MEDS: predniSONE 20 mg tablet PO SCH (08:06)
[2023-04-10] MEDS: HYDROcodone/acetaminophen 10/325mg tab PO PRN (08:06)
[2023-04-10] MEDS: pantoprazole 40mg Tablet.DR PO SCH (08:06)
[2023-04-10] MEDS: CefTRIAXone/D5W-Rocephin 1gm 50 ML IV SCH (08:06)
[2023-04-10] MEDS: gabapentin 100mg capsule PO SCH ×3 (08:07→20:17)
--- NOTE | 2023-04-10 20:11 | NUR ---
paged PAGER ID: [phone] MESSAGE: [phone] Wilver Rangel. Pt has order for Infuvite Multivitamin Infusion to run at 102 mLs/hr. There is no documented administration for 2 days and medication is not running currently. Should we d/c or administer? Please advise. Yasmeen LEGER [phone]
[2023-04-10] MEDS: Melatonin 3mg tablet PO SCH (20:17)
[2023-04-11] MEDS: heparin, porcine 5000 units/ml vial SQ SCH ×3 (00:49→15:38)
[2023-04-11] MEDS: baclofen 10mg tablet PO SCH ×3 (02:42→13:36)
--- NOTE | 2023-04-11 03:09 | NUR ---
MD called for pt order for Infuvite IV medication. MD gave order for oral form of medication, pharmacy to input order. Order read back and pharmacy notified
[2023-04-11 06:00] VITALS: BP 130/69; PULSE 78; RESP 14; TEMP 97.7; O2SAT 96
[2023-04-11 06:32] LABS: BASOPHILS % (AUTO) 0.3 % (0-1); EOSINOPHILS % (AUTO) 0.4 % (0-6); HEMATOCRIT 32.7 % (42.0-52.0); HEMOGLOBIN 10.9 g/dl (14.0-17.9); LYMPHOCYTES # (AUTO) 2.5 X10'3 (1.1-4.8); LYMPHOCYTES % (AUTO) 26.3 % (21-51); MEAN CORPUSCULAR HEMOGLOBIN 35.7 PG (27.0-31.0); MEAN CORPUSCULAR HGB CONC 33.4 g/dL (33.0-36.5); MEAN CORPUSCULAR VOLUME 107.1 FL (78-98); MEAN PLATELET VOLUME 8.4 FL (7.4-10.4); MONOCYTES # (AUTO) 0.9 X10'3 (0-0.9); MONOCYTES % (AUTO) 9.3 % (2-12); NEUTROPHILS % (AUTO) 63.7 % (42-75); PLATELET COUNT 314 X10'3 (140-440); RED BLOOD COUNT 3.05 X10'6 (4.70-6.10); RED CELL DISTRIBUTION WIDTH 14.8 % (11.5-14.5); WHITE BLOOD COUNT 9.5 X10'3 (4.5-11.0)
--- NOTE | 2023-04-11 06:32 | NUR ---
Problems reprioritized. Patient report given, questions answered & plan of care reviewed with Cristal LEGER. Pt stable at transfer of care
--- NOTE | 2023-04-11 06:58 | NUR ---
Patient in room PCU 3017. I have received report from Yasmeen LEGER and had the opportunity to ask questions and assume patient care.
[2023-04-11 07:09] LABS: ALANINE AMINOTRANSFERASE 95 U/L (12-78); ALBUMIN 1.9 G/DL (3.4-5.0); ALBUMIN/GLOBULIN RATIO 0.6 (1.1-1.5); ALKALINE PHOSPHATASE 75 IU/L (46-116); ANION GAP 7 (8-16); ASPARTATE AMINO TRANSFERASE 67 U/L (10-37); BILIRUBIN,TOTAL 0.5 MG/DL (0.1-1.0); BLOOD UREA NITROGEN 22 MG/DL (7-18); BUN/CREATININE RATIO 26.2 (10.0-20.0); CALCIUM 8.3 MG/DL (8.5-10.1); CHLORIDE 108 MMOL/L (99-107); CREATININE 0.84 MG/DL (0.60-1.10); GLUCOSE 83 MG/DL (70-104); PHOSPHORUS 4.5 MG/DL (2.3-4.5); POTASSIUM 3.9 MMOL/L (3.5-5.1); SODIUM 140 MMOL/L (135-145); TOTAL CARBON DIOXIDE 24.8 MMOL/L (24-32); TOTAL PROTEIN 4.9 G/DL (6.4-8.2); eCRCL 116 ML/MIN; eGFR > 90 ML/MIN
[2023-04-11] MEDS: pantoprazole 40mg Tablet.DR PO SCH (07:59)
[2023-04-11] MEDS: HYDROcodone/acetaminophen 10/325mg tab PO PRN (07:59)
[2023-04-11] MEDS: gabapentin 100mg capsule PO SCH ×2 (07:59→13:37)
[2023-04-11 08:00] VITALS: RESP 27
[2023-04-11] MEDS: K and/or MAG REPLACEMENT MC SCH (08:00)
[2023-04-11 09:02] LABS: TOTAL CELLS COUNTED 100
[2023-04-11 09:03] LABS: PLATELET ESTIMATE NORMAL
[2023-04-11 09:05] LABS: SMUDGE CELLS 1+; STOMATOCYTES 1+
[2023-04-11 10:00] VITALS: BP 119/65; PULSE 80; RESP 12; TEMP 98.9; O2SAT 96
[2023-04-11] MEDS ORDERED: meclizine 12.5mg tablet PO ONE (11:35)
[2023-04-11] MEDS ORDERED: meclizine 12.5mg tablet PO PRN (11:35)
[2023-04-11 15:00] VITALS: BP 116/62; PULSE 95; RESP 12; TEMP 98.9; O2SAT 96
--- NOTE | 2023-04-11 16:12 | NUR ---
Patient transferred to [facility] per hospitalist. Pt stable for transfer. PIV removed, cannula intact. No tele. FC was sent with patient. All belongings taken to [facility], including patient's home wheelchair. Pt wheeled down to lobby by [employer] staff and taken to [facility] via medi-van.
== END 2023-04-11 16:12 | DRG 871 ==
LOC: ER 00:09 → ED HOLD 02:47 → ICU 2S 05:10 → PCU 3S 04-06 19:40
PROVIDERS: ADMIT Student in an Organized Health Care Education/Training Program; ATTEND Student in an Organized Health Care Education/Training Program
PROC: 5A09357 Assistance with Respiratory Ventilation, Less than 24 Consecutive Hours, Continuous Positive Airway Pressure (ICD-10-PCS; principal; 2023-04-03)
DX: A41.53 Sepsis due to Serratia (principal); J80 Acute respiratory distress syndrome; N17.0 Acute kidney failure with tubular necrosis; R65.21 Severe sepsis with septic shock; E87.20 Acidosis, unspecified; G82.20 Paraplegia, unspecified; E87.1 Hypo-osmolality and hyponatremia; N39.0 Urinary tract infection, site not specified; E87.6 Hypokalemia; I10 Essential (primary) hypertension; E83.39 Other disorders of phosphorus metabolism; L89.329 Pressure ulcer of left buttock, unspecified stage; L89.319 Pressure ulcer of right buttock, unspecified stage; N31.9 Neuromuscular dysfunction of bladder, unspecified; Z20.822 Contact with and (suspected) exposure to COVID-19; K70.9 Alcoholic liver disease, unspecified; D64.9 Anemia, unspecified; R19.7 Diarrhea, unspecified; F10.90 Alcohol use, unspecified, uncomplicated; L89.159 Pressure ulcer of sacral region, unspecified stage; L89.229 Pressure ulcer of left hip, unspecified stage; L89.219 Pressure ulcer of right hip, unspecified stage; R42 Dizziness and giddiness; E83.51 Hypocalcemia; E83.42 Hypomagnesemia; Z99.3 Dependence on wheelchair; Z88.0 Allergy status to penicillin; Z87.440 Personal history of urinary (tract) infections
CPT/HCPCS: 36415; 36600; 71045; 80048; 80053; 80320; 81001; 82310; 82550; 82803; 82948; 83605; 83735; 84100; 84132; 84134; 84145; 85007; 85018; 85025; 85610; 86704; 86705; 86885; 86900; 86901; 87040; 87070; 87077; 87081; 87088; 87186; 87324; 87340; 87449; 87502; 87503; 87811; 94660; 94760; 97110; 97161; 99285; A4371; A4615; A4649; A5200; A6154; A6213; A6222; A6223; A6250; A6253; A6258; A6260; A6402; A6446; A6449; C9113; G0378; J0610; J0696; J1644; J2543; J3370; J3411; J3475; J3490; J7030; J7040; J7060; J7070; J7120; J7512; J8597

== ENCOUNTER 2023-06-28 11:53 | Emergency (ER) | payer OTHER, MEDICARE ==
[~2023-06-28] VITALS: Ht 165.1 cm; Wt 80.0 kg
[~2023-06-28 11:53] MED LIST: BACL-11 PO; FOLI0.4T6 PO; GABA-530 PO; LACT1TAB15 PO; MELA5CAP PO; MIDO2.5T14 PO; MULT-1085 PO; NAPR-56 PO; OXYB5TAB21 PO
[2023-06-28 12:09] VITALS: TEMP 98.2
[2023-06-28] MEDS: gabapentin 300mg capsule PO ONE (12:29)
[2023-06-28] MEDS: oxyCODONE/APAP 5-325mg tablet PO ONE ×2 (12:29→19:09)
[2023-06-28 12:55] LABS: BASOPHILS % (AUTO) 0.2 % (0-1); EOSINOPHILS # (AUTO) 0.3 X10'3 (0-0.9); EOSINOPHILS % (AUTO) 2.1 % (0-6); HEMATOCRIT 39.9 % (42.0-52.0); LYMPHOCYTES # (AUTO) 2.1 X10'3 (1.1-4.8); LYMPHOCYTES % (AUTO) 16.1 % (21-51); MEAN CORPUSCULAR HEMOGLOBIN 29.6 PG (27.0-31.0); MEAN CORPUSCULAR HGB CONC 32.5 g/dL (33.0-36.5); MEAN CORPUSCULAR VOLUME 90.8 FL (78-98); NEUTROPHILS # (AUTO) 9.4 X10'3 (1.8-7.7); NEUTROPHILS % (AUTO) 73.6 % (42-75); PLATELET COUNT 320 X10'3 (140-440); RED BLOOD COUNT 4.39 X10'6 (4.70-6.10); RED CELL DISTRIBUTION WIDTH 13.1 % (11.5-14.5); WHITE BLOOD COUNT 12.8 X10'3 (4.5-11.0)
[2023-06-28 12:59] LABS: BILIRUBIN,URINE NEGATIVE (Neg); CLARITY,URINE CLOUDY (Clear); COLOR,URINE YELLOW (Yellow); GLUCOSE, URINE NEGATIVE (Neg); KETONES,URINE TRACE mg/dl (Neg); LEUKOCYTE ESTERASE ,URINE MODERATE (Neg); NITRITES, URINE POSITIVE (Neg); OCCULT BLOOD,URINE TRACE-INTACT (Neg); PROTEIN,URINE NEGATIVE (Neg); UROBILINOGEN,URINE 0.2 E.U/dL (0.2-1.0)
[2023-06-28 13:00] LABS: UA COLLECTION TYPE STRAIGHT CATH
[2023-06-28] MEDS ORDERED: iohexol 300mg/ml 100ml inj. ONE (13:06)
[2023-06-28 13:07] LABS: ALBUMIN 3.2 G/DL (3.4-5.0); ANION GAP 15 (8-16); BLOOD UREA NITROGEN 13 MG/DL (7-18); BUN/CREATININE RATIO 22.4 (10.0-20.0); CALCIUM 9.1 MG/DL (8.5-10.1); CHLORIDE 108 MMOL/L (99-107); CREATININE 0.58 MG/DL (0.60-1.10); GLUCOSE 78 MG/DL (70-104); POTASSIUM 4.1 MMOL/L (3.5-5.1); SODIUM 145 MMOL/L (135-145); TOTAL CARBON DIOXIDE 21.6 MMOL/L (24-32); eCRCL 141 ML/MIN; eGFR > 90 ML/MIN
[2023-06-28 13:10] LABS: BACTERIA,URINE 3+ /HPF (Neg); WBC,URINE TNTC /HPF (0-4)
[2023-06-28 13:15] LABS: RBC,URINE 0-2 /HPF (0-2); SQUAMOUS EPITHELIAL CELL,UR FEW /LPF (FEW)
[2023-06-28] MEDS ORDERED: CefTRIAXone 1000mg IM Kit (w/lidocaine diluent) IM ONE (13:15)
[2023-06-28] MEDS: CefTRIAXone/D5W-Rocephin 1gm 50 ML IV ONE (13:54)
[2023-06-28] MEDS: normal saline 1000ML IV soln IVB ONE (13:54)
[2023-06-28] MEDS ORDERED: CEPH250T PO (15:34)
[2023-06-28 20:12] VITALS: O2SAT 94
[2023-06-28 20:27] VITALS: BP 131/80; PULSE 89; RESP 16
[2023-07-01] MEDS ORDERED: DOXY100C43 PO (10:21)
== END 2023-06-28 20:46 | disposition home or self-care (01) ==
LOC: ER 11:53
DX: N39.0 Urinary tract infection, site not specified (principal); E86.0 Dehydration; Z88.0 Allergy status to penicillin; Z88.2 Allergy status to sulfonamides; Z79.1 Long term (current) use of non-steroidal anti-inflammatories (NSAID); Z79.2 Long term (current) use of antibiotics; Z79.899 Other long term (current) drug therapy
CPT/HCPCS: 36415; 72131; 74177; 80048; 81001; 85025; 87077; 87088; 87186; 96365; 99285; J0696; J3490; J7030; Q9967; C1758

== ENCOUNTER 2024-10-22 10:24 | Inpatient (IN) | payer OTHER, MEDICARE ==
[~2024-10-22] VITALS: Ht 165.1 cm; Wt 94.0 kg
[~2024-10-22 10:24] MED LIST changes: +MIDO2.5T PO; -MIDO2.5T14 PO
[2024-10-22 11:14] LABS: BASOPHILS # (AUTO) 0.1 X10'3 (0-0.2); BASOPHILS % (AUTO) 0.6 % (0-1); EOSINOPHILS # (AUTO) 0.1 X10'3 (0-0.9); EOSINOPHILS % (AUTO) 0.7 % (0-6); HEMATOCRIT 30.5 % (42.0-52.0); HEMOGLOBIN 10.2 g/dl (14.0-17.9); LYMPHOCYTES # (AUTO) 1.3 X10'3 (1.1-4.8); LYMPHOCYTES % (AUTO) 14.7 % (21-51); MEAN CORPUSCULAR HEMOGLOBIN 33.5 PG (27.0-31.0); MEAN CORPUSCULAR HGB CONC 33.5 g/dL (33.0-36.5); MEAN CORPUSCULAR VOLUME 99.8 FL (78-98); MEAN PLATELET VOLUME 7.7 FL (7.4-10.4); MONOCYTES # (AUTO) 0.7 X10'3 (0-0.9); MONOCYTES % (AUTO) 7.2 % (2-12); NEUTROPHILS # (AUTO) 6.9 X10'3 (1.8-7.7); NEUTROPHILS % (AUTO) 76.8 % (42-75); PLATELET COUNT 303 X10'3 (140-440); RED BLOOD COUNT 3.06 X10'6 (4.70-6.10)
--- NOTE | 2024-10-22 11:27 | Physician Documentation ---
History of Present Illness ~ Chief Complaint: Extremity Swelling Stated Complaint: DARK URINE Time Seen by MD: 10:44 Primary Medical Doctor: [facility] Source: patient, family Mode of Arrival: EMS, Stretcher HPI 43-year-old male history of spinal cord injury lower extremity paresis, alcohol use disorder (heavy vodka use last drink 3 days ago) presenting for leg swelling. He reports rash on his right lateral bartholomew which has been present for the last 2-3 weeks. He reports over the last week he has had increased swelling and discoloration in his right leg. He thinks he may have stubbed his toe initially. Sister reports further history that he is a heavy alcoholic then he falls frequently from his chair. She thinks he hit his feet frequently as well while intoxicated. She reports that he has had bloody stools as well as blood in his urine over the last few days Tetanus witin 5 years: Yes Medication Reconciliation Allergies: Coded Allergies: Penicillins (Verified Allergy, Unknown, 10/22/24) Sulfa (Sulfonamide Antibiotics) (Verified Allergy, Unknown, 10/22/24) Scheduled Baclofen (Baclofen), 1 TAB PO Q6H, (Reported) Folic Acid* (Folic Acid*), 1 TAB PO DAILY, (Reported) Gabapentin (Gabapentin), Unknown Dose PO Q8H, (Reported) Lactobacillus Acidophilus (Acidophilus), Unknown Dose PO DAILY, (Reported) Melatonin (Melatonin), 1 CAP PO HS, (Reported) Multivitamin (Multi Vitamin Daily), Unknown Dose PO DAILY, (Reported) Naproxen (Naproxen), Unknown Dose PO DAILY, (Reported) Oxybutynin Chloride (Oxybutynin Chloride), 2 TAB PO HS, (Reported) Discontinued Medications Cephalexin (Cephalexin), 1 CAP PO Q6H Discontinued Reason: completed med therapy Midodrine Hcl* (Proamatine*), 10 TAB PO Q8H, (Reported) Discontinued Reason: patient no longer taking Past Medical History 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*, 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 Past Surgical History: noncontributory, orthopedic surgeries Alcohol Use: Alcoholic Drug Use: none Lives with: Other Lives In: Home Review of Systems All Other Systems at this time: Reviewed and Negative Constitutional: Denies: fever Respiratory: Reports: shortness of breath Cardiovascular: Denies: chest pain Gastrointestinal: Denies: abdominal pain Physical Exam Vital Signs: RN Vital Signs have been reviewed: Yes, Temperature: 98.5, Source: Oral, Heart Rate: 88, Respiratory Rate: 20, BP: 137/80, Pulse Oximetry: 97, Weight: 94.000 Oxygen Flow Rate: 0 Physical Exam Nontoxic Abdomen is soft nontender Neuro awake alert oriented Right lower extremity 2+ pitting edema, ecchymosis anterior right lower extending to proximal thigh. Intact knee and ankle range of motion. Ecchymosis and erythema around distal right 3rd toe, Left lower extremity skin intact Progress Progress Note Labs independently interpreted show no leukocytosis UA grossly infected Hemoccult positive Consulted hospitalist who agrees with management plan and graciously accept for admission Results/Orders Reviewed/noted all lab results: Yes Results/Orders Orders - HINA LEON MD Chest,Single View (10/22/24 10:36) Monitor (10/22/24 10:36) Saline Lock (10/22/24 10:36) Oxygen (10/22/24 10:36) Vl Venous (10/22/24 11:23) * Straight Cath* (10/22/24 14:55) Cult Urine + [address] Ct (10/22/24 15:59) Knee Limited (Ap/Lat) (10/22/24 ) Page Hospitalist (10/22/24 19:08) Fill Out Med Reconciliation (10/22/24 19:08) Ultrasound Of Abdomen (10/22/24 19:10) Completed Orders - HINA LEON MD Chest,Single View (10/22/24 10:36) Cbc/Diff (10/22/24 10:36) PBNP (10/22/24 10:36) Electrocardiogram (10/22/24 10:36) Hs Troponin I W Calculations (10/22/24 10:36) Vl Venous (10/22/24 11:23) CMP (10/22/24 10:58) Ua W/Microscopic, Cult If Ind (10/22/24 15:24) Knee Limited (Ap/Lat) (10/22/24 ) Ceftriaxone 2gm/D5w 50ml Bag (Rocephin 2 (10/22/24 18:55) Pantoprazole 40mg Iv (Protonix 40mg Iv) (10/22/24 19:10) Pt Inr (10/22/24 19:10) Ultrasound Of Abdomen (10/22/24 19:10) Direct Bili (10/22/24 19:10) Occult Bld Stool (10/22/24 19:04) Hgb A1c (10/22/24 10:58) Vital Signs 10/22/24 10/22/24 10/22/24 10/22/24 10:29 10:50 11:30 13:56 Temp 98.5 98.5 98.5 Pulse 88 101 100 Resp 12 20 22 15 B/P (MAP) 137/80 140/83 (102) 129/74 (92) Pulse Ox 97 97 97 O2 Flow Rate 0 0 0 10/22/24 10/22/24 10/22/24 16:24 18:33 18:33 Temp 98.5 Pulse 87 97 Resp 18 19 B/P (MAP) 134/81 (98) 135/84 (101) Pulse Ox 95 96 O2 Flow Rate 0 0 Laboratory Tests Test 10/22/24 10:58 10/22/24 15:24 10/22/24 19:04 10/22/24 19:16 White Blood Count 9.0 Red Blood Count 3.06 L Hemoglobin 10.2 L Hematocrit 30.5 L Mean Corpuscular Volume 99.8 H Mean Corpuscular Hemoglobin 33.5 H Mean Corpuscular Hemoglobin Concent 33.5 Red Cell Distribution Width 15.0 H Platelet Count 303 Mean Platelet Volume 7.7 Neutrophils (%) (Auto) 76.8 H Lymphocytes (%) (Auto) 14.7 L Monocytes (%) (Auto) 7.2 Eosinophils (%) (Auto) 0.7 Basophils (%) (Auto) 0.6 Neutrophils # (Auto) 6.9 Lymphocytes # (Auto) 1.3 Monocytes # (Auto) 0.7 Eosinophils # (Auto) 0.1 Basophils # (Auto) 0.1 CBC Comment Sodium Level 142 Potassium Level 4.1 Chloride Level 108 H Carbon Dioxide Level 26.0 Anion Gap 8 Blood Urea Nitrogen 9 Creatinine 0.71 Estimated GFR/1.73 m2 > 90 BUN/Creatinine Ratio 12.7 Glucose Level 88 Hemoglobin A1c 4.7 Calcium Level 8.2 L Total Bilirubin 2.3 H Aspartate Amino Transf (AST/SGOT) 41 H Alanine Aminotransferase (ALT/SGPT) 33 Alkaline Phosphatase 221 H Troponin I High Sensitivity 8 Pro-B-Type Natriuretic Peptide 585 H Total Protein 7.3 Albumin 2.5 L Globulin 4.8 H Albumin/Globulin Ratio 0.5 L Chemistry Comments Urine Specimen Description Straight cath Urine Color Yellow Urine Clarity Slightly cloudy Urine pH 6.0 Urine Specific [place] 1.020 Urine Protein Negative Urine Glucose (UA) Negative Urine Ketones Negative Urine Occult Blood Trace-intact Urine Nitrite Positive H Urine Bilirubin Small Urine Urobilinogen >=8.0 H Urine Leukocyte Esterase Trace H Urine RBC 3-10 Urine WBC 20-30 H Urine Squamous Epithelial Cells Few Urine Bacteria 4+ Urine Mucus Few Urine Culture Indicated Indicated Volume Urine Centrifuged 10 ml Urine Comment Stool Occult Blood Positive H Prothrombin Time 11.1 INR International Normalized Ratio 1.1 Coagulation Comments Direct Bilirubin 0.5 H Microbiology Date/Time Source Procedure Growth Status 10/22/24 15:59 Urine Straight Cath Urine Culture - Preliminary Culture received. Resulted EKG/XRAY/CT/US/VASC/MRI EKG : Additional Comment EKG independently interpreted by myself time 10:41 a.m. indication symptomatic patient normal sinus rhythm rate 87 normal axis normal intervals no ST or T-wave abnormality Chest X-Ray : Additional Comments Chest x-ray independently interpreted by myself shows no pneumothorax no consolidation, mild cardiomegaly Medical Decision Making Additional info obtained from: old records, family Departure Disposition: ADMITTED INPATIENT Admitted to Inpatient Unit: to hospitalist Impression: Primary Impression: UTI (urinary tract infection) Qualified Codes: N30.01 - Acute cystitis with hematuria Additional Impressions: Hematoma GI bleed Qualified Codes: K92.2 - Gastrointestinal hemorrhage, unspecified Referrals: NO PRIMARY CARE PROVIDER (PCP) Signature Scribe Signature: na Attestation: HINA Lindsay MD Oct 22, 2024 11:27
--- NOTE | 2024-10-22 11:27 | ELECTROCARDIOGRAPH REPORT ---
[facility] Test Date: 2024-10-22 Test Time: 10:41:11 Pat Name: TERESA FINNEY Department: EMERGENCY ROOM Room: Gender: M It Software Developer: DAVID : [id number] Requested By: HINA LEON Order Number: [id number] Reading MD: Measurements Intervals [place] Rate: 87 P: 60 ID: [id number] QRS: 21 QRSD: 83 T: 26 QT: 374 QTc: 450 Interpretive Statements Sinus rhythm Low voltage, precordial leads Please click the below link to view image of tracing.
[2024-10-22 11:40] LABS: ALBUMIN 2.5 G/DL (3.4-5.0); ANION GAP 8 (8-16); BLOOD UREA NITROGEN 9 MG/DL (7-18); BUN/CREATININE RATIO 12.7 (10.0-20.0); CALCIUM 8.2 MG/DL (8.5-10.1); CHLORIDE 108 MMOL/L (99-107); CREATININE 0.71 MG/DL (0.60-1.10); GLUCOSE 88 MG/DL (70-104); POTASSIUM 4.1 MMOL/L (3.5-5.1); PRO BRAIN NATRIURETIC PEPTIDE 585 PG/ML (0-125); SODIUM 142 MMOL/L (135-145); eCRCL 114 ML/MIN; eGFR > 90 ML/MIN
[2024-10-22 12:28] LABS: ALANINE AMINOTRANSFERASE 33 U/L (12-78); ALBUMIN/GLOBULIN RATIO 0.5 (1.1-1.5); ALKALINE PHOSPHATASE 221 IU/L (46-116); ASPARTATE AMINO TRANSFERASE 41 U/L (10-37); BILIRUBIN,TOTAL 2.3 MG/DL (0.1-1.0); TOTAL PROTEIN 7.3 G/DL (6.4-8.2)
--- NOTE | 2024-10-22 13:02 | VASCULAR REPORT ---
VASC VL VENOUS HISTORY: edema COMPARISON: None TECHNIQUE: Duplex doppler evaluation of the deep venous system of the lower extremity from the common femoral veins, superficial femoral vein, great saphenous vein, deep femoral vein, popliteal vein, an d calf veins, including color doppler and spectral/pulsed waveform analysis, was performed. FINDINGS: Right: - Common femoral vein: Compressible - Deep femoral vein: Compressible - Femoral vein: Compressible - Popliteal vein: Compressible - Posterior tibial vein: Waveforms present - Peroneal vein: Waveforms present - Other: Nothing Left: - Common femoral vein: Flow visualized. - Other: Nothing IMPRESSION: No right lower extremity deep venous thrombosis.
--- NOTE | 2024-10-22 13:06 | RADIOLOGY REPORT ---
CHEST RADIOGRAPH Indication: CP Technique: Single frontal view of the chest was obtained Comparison: None FINDINGS: The cardiac silhouette is enlarged. The lungs demonstrate no pulmonary airspace consolidation. The pu lmonary vasculature is unremarkable. There is no pleural effusion.. There is no pneumothorax. Old mi d right clavicular fracture deformity. Old posterior right 8th and 9th rib fractures. IMPRESSION: 1. Cardiomegaly
[2024-10-22 15:41] LABS: BILIRUBIN,URINE SMALL (Neg); CLARITY,URINE SLIGHTLY CLOUDY (Clear); COLOR,URINE YELLOW (Yellow); GLUCOSE, URINE NEGATIVE (Neg); KETONES,URINE NEGATIVE (Neg); LEUKOCYTE ESTERASE ,URINE TRACE (Neg); NITRITES, URINE POSITIVE (Neg); OCCULT BLOOD,URINE TRACE-INTACT (Neg); PROTEIN,URINE NEGATIVE (Neg); UROBILINOGEN,URINE >=8.0 E.U/dL (0.2-1.0)
[2024-10-22 15:43] LABS: UA COLLECTION TYPE STRAIGHT CATH
[2024-10-22 15:57] LABS: MUCUS STRANDS FEW /LPF (Neg)
[2024-10-22 15:58] LABS: BACTERIA,URINE 4+ /HPF (Neg); SQUAMOUS EPITHELIAL CELL,UR FEW /LPF (FEW); WBC,URINE 20-30 /HPF (0-4)
--- NOTE | 2024-10-22 18:41 | RADIOLOGY REPORT ---
CLINICAL INDICATION: knee trauma RIGHT TECHNIQUE: 2 radiographic views of the right knee were obtained. Comparison: None FINDINGS/IMPRESSION: There is no evidence of acute fracture or dislocation. The visualized joint space is well maintained. The alignment is anatomical. There is no radiopaque foreign body.
[2024-10-22] MEDS ORDERED: CEPH500C81 PO (18:58)
[2024-10-22] MEDS: CefTRIAXone 2gm/D5W 50ml BAG 50 ML IV ONE (19:17)
[2024-10-22] MEDS: pantoprazole 40 MG vial IV ONE (19:17)
[2024-10-22 19:24] LABS: OCCULT BLOOD STOOL POSITIVE (Neg)
[2024-10-22 19:34] LABS: INR 1.1 INR; PROTHROMBIN TIME 11.1 SECONDS (9.0-12.0)
[2024-10-22] MEDS ORDERED: magnesium sulf-water 2g/50mL 50 ML IV PRN (21:10)
[2024-10-22] MEDS ORDERED: magnesium sulf-water 4G/100mL 100 ML IV PRN (21:10)
[2024-10-22] MEDS ORDERED: mag hydrox/Alum hydrox/simeth 30ml oral suspension PO PRN (21:10)
[2024-10-22] MEDS ORDERED: potassium Cl 40MEQ/1/2NS 520ml 520 ML IV PRN (21:10)
[2024-10-22] MEDS ORDERED: potassium Cl 20 mEq SR tablet PO PRN ×2 (21:10)
[2024-10-22] MEDS ORDERED: magnesium hydroxide 30ml (MOM) UD suspension PO PRN (21:10)
[2024-10-22] MEDS ORDERED: ondansetron/PF 4mg/2ml inj IV PRN (21:10)
[2024-10-22] MEDS ORDERED: magnesium Cl slow-release 64mg tablet PO PRN (21:10)
[2024-10-22 21:36] LABS: HEMOGLOBIN A1C 4.7 % (4.5-6.2)
--- NOTE | 2024-10-22 21:39 | RADIOLOGY REPORT ---
Procedure: US ULTRASOUND OF [facility] Study Date and Requested Time: 10/22/2024 07:27 PM History: elevated lft's Comparison: None Technique: Multiple high resolution foote-scale images obtained of the right upper quadrant of the abd omen with color Doppler for evaluation of blood flow and vascularity as indicated. Findings: Liver measures 17.7 cm in length, with increased echogenicity and normal contours. No evidence of foc al hepatic lesions, intrahepatic or extrahepatic ductal dilatation. Common bile duct measures 0.4 cm in diameter. Gallbladder unremarkable with no evidence of abnormal wall thickening, gallstones, biliary sludge, or pericholecystic fluid. Negative sonographic Jarrell's sign. Pancreas is partially obscured by bowel gas Right kidney measures 12.4 cm in length, with normal contours, echotexture, and cortical thickness. N o evidence of hydronephrosis, calculi, cystic or solid renal lesions. Partially visualized inferior vena cava unremarkable. Impression: Hepatomegaly with increased hepatic echogenicity which may be from hepatic steatosis/hepatic disease. Pancreas is partially obscured by bowel gas.
[2024-10-22 23:15] VITALS: BP 128/78; PULSE 102; RESP 18; TEMP 97.4; O2SAT 97
--- NOTE | 2024-10-22 23:20 | HISTORY AND PHYSICAL-Residence ---
History & Physical Providers to CC Resident Creating Document: SUSAN CHOWDHURY RES ~ History of Present Illness Primary Medical Doctor: [facility] Reason for Admit\Complaint: bloody stools History of Present Illness This is a 43 year old female with past medical histor of HTn, Paraplegia-wheel chair bound, alcohol use disorder came to the ER with the chief complaint of bloody stools and right leg swelling. Two days ago He had 3-4 bowel movements with large amount of bereket blood. Yesterday he had a bowel movement which was normal. He had similar episodes in the past but never got evaluated for it. Denies any episodes of black-colored stools or bloody vomiting. Also denies fever. Denies any history of hemorrhoids. Never had a colonoscopy done. No family history of GI malignancies. Denies any history of liver disease. Denies any NSAIDs use, not on blood thinners. 3-4 days ago he bumped his right toe into something and later he noticed swelling and discoloration of his right lower extremity. Denies any pain or fever. In 2010 he had a cervical fracture after he had a fall it swimming pool. Since then he has been on wheelchair. He does self catheterization. Denies any burning micturition. He has a history of multiple UTIs in the past. He has a chronic alcoholic, drinks about three to 4 times a week, last drink was on Tuesday. . Allergies: Coded Allergies: Penicillins (Verified Allergy, Unknown, 10/22/24) Sulfa (Sulfonamide Antibiotics) (Verified Allergy, Unknown, 10/22/24) Home Medications Home Medications Active Reported Melatonin 5 Mg Capsule 1 Cap PO HS Acidophilus (Lactobacillus Acidophilus) Unknown Strength Tablet Unknown Dose PO DAILY Multi Vitamin Daily (Multivitamin) Unknown Strength Tablet Unknown Dose PO DAILY Folic Acid* (Folic Acid) 0.4 Mg Tablet 1 Tab PO DAILY Gabapentin Unknown Strength Capsule Unknown Dose PO Q8H Naproxen Unknown Strength Tablet Unknown Dose PO DAILY Oxybutynin Chloride 5 Mg Tablet 2 Tab PO HS Baclofen 10 Mg Tablet 1 Tab PO Q6H Past Medical History Past Medical History Alcohol use disorder Hypertension Paraplegia, wheelchair-bound Past Surgical History Surgical History Comment Orthopedic surgeries for cervical fracture Past Social History Social History Comment Denies any history of smoking Drinks about three to 4 times a week, drinks about 8-12 oz of vodka per day No history of drug use Lives alone Alcohol Use: Alcoholic Drug Use: None Lives with: Other Lives In: Home ROS All Other Systems: Reviewed and Negative Constitutional: Denies: no symptoms reported, see HPI, chills, diaphoresis, fever, malaise, weakness, other Eyes: Denies: no symptoms reported, see HPI, pain, discharge, blurred vision, double vision, itching, photophobia, redness, tearing, other ENT: Denies: no symptoms reported, see HPI, ear pain, ear bleeding, ear discharge, hearing loss, ear ringing, nose pain, nose bleeding, nose congestion, nose discharge, throat pain, throat swelling, voice change, mouth pain, mouth bleeding, mouth swelling, other Respiratory: Reports: shortness of breath; Denies: no symptoms reported, see HPI, cough, orthopnea, SOB with exertion, SOB at rest, stridor, wheezing, hemoptysis, pain with breathing, other Cardiovascular: Denies: no symptoms reported, see HPI, chest pain, left arm pain, diaphoresis, lightheadedness, syncope, edema, palpitations, irregular heart rate, other Gastrointestinal: Reports: hematochezia; Denies: abdominal pain Genitourinary: Denies: no symptoms reported, see HPI, burning, discharge, dysuria, frequency, flank pain, hematuria, incontinence, pain, decreased urine output, urgency, other Neurological: Denies: no symptoms reported, see HPI, speech problem, headache, dizziness, fainting, tingling, left sided numbness, right sided numbness, left sided weakness, right sided weakness, problems walking, unable to move lower ext, unable to move upper ext, petit mal seizures, tonic-clonic seizures, cognitive dysfunction, other Musculoskeletal: Reports: swelling Exam Vitals: Vital Signs Date Time Temp Pulse Resp B/P (MAP) Pulse Ox O2 Delivery O2 Flow Rate FiO2 10/22/24 20:03 105 22 140/88 (105) 98 10/22/24 18:33 0 10/22/24 16:24 98.5 General: General Awake and Alert, not in distress HEENT: Conjunctiva pink, Sclera clear Neck: Supple without masses and tenderness. Resp: Bilateral breath sounds are clear Heart: Regular Rate and rhythm, normal S1 and S2 without murmur, rub or gallop. Abdomen: Soft and non tender no organomegaly, normal bowel sounds Rectal exam-no hemorrhoids, no blood noticed Extremities: Right lower extremity swelling, 2+ pitting edema, no tenderness, ecchymosis and erythema of right distal 2nd and 3rd toe Skin: Warm and Dry. Neurology: Alert and oriented Normal cranial nerve exam Bilateral lower extremity strength 2/5, upper extremity strength5/5. Sensations intact in lower extremity Diagnostic Data Last Recorded Lab Results: 10/23/24 0413 10/23/24 0413 Diagnostic Data: Laboratory Tests Test 10/22/24 19:16 Prothrombin Time 11.1 SECONDS (9.0-12.0) INR International Normalized Ratio 1.1 INR Coagulation Comments Advance Care Planning Advanced Care plannin - 30 Minutes (I spent 17 minutes in discussing various resuscitative measures, the patient chose to be full code.) Additional Plan Assessment This is a 43 year old female with past medical histor of HTn, Paraplegia-wheel chair bound, alcohol use disorder came to the ER with the chief complaint of bloody stools and right leg swelling. . Patient is being admitted for GI bleed and right lower extremity swelling Plan GI bleed, probably diverticulosis Normocytic anemia Patient had bereket blood in the stool Stool occult blood positive Hemoglobin 10.2 Iron studies ordered Started on Protonix 40 mg b.i.d. Consult GI in the morning for colonoscopy. Elevated liver enzymes Hyperbilirubinemia AST, ALT 41, 33 Elevated alkaline phosphatase 221 Total bilirubin 2.3, direct bilirubin 0.5 Abdominal ultrasound showed Hepatomegaly with increased hepatic echogenicity which may be from hepatic steatosis/hepatic disease. Right leg swelling Knee X-ray normal Vascular ultrasound ruled out DVT Right lower extremity CT ordered Possible cellulitis- pt is on ceftriaxone for UTI Recurrent UTI Urine analysis is positive for infection Normal WBC count Follow up with urine cultures Started on ceftriaxone Alcohol use disorder Started on moderate alcohol withdrawal protocol Social service consulted Code status: Full code DVT prophylaxis: Heparin GI prophylaxis: Pantoprazole Diet: Regular diet Lines/tubes: Peripheral IV line Disposition: Consult GI Susan Chowdhury M.D PGY1 Date of Service: Oct 22, 2024 Billing Provider: SANCHO CUELLAR MD Common Visit Codes: [id number] INP/OBS CARE (HIGH) Assessment/Plan Assessment Evaluated the patient with the help of residents. Discussed the case with them. Reviewed notes by Dr.Katta LUONG. Agree with her assessments and plans. I also reviewed the patient's records, labs, radiology, and notes from other providers. No additional points at this time. SUSAN CHOWDHURY, RES Oct 22, 2024 23:20 SANCHO CUELLAR MD Oct 23, 2024 06:46
[2024-10-22] MEDS ORDERED: haloperidol lactate 5mg/ml inj IM PRN (23:55)
[2024-10-22] MEDS ORDERED: LORazepam 2 mg/ml vial IV PRN (23:55)
[2024-10-22] MEDS ORDERED: haloperidol 5mg tablet PO PRN (23:55)
[2024-10-23] VITALS (7 sets, daily range): BP systolic 109–156; BP diastolic 55–92; PULSE 67–99; RESP 15–20; TEMP 97.1–98.3; O2SAT 95–98
[2024-10-23] MEDS: baclofen 10mg tablet PO PRN (01:14)
[2024-10-23 04:35] LABS: BASOPHILS % (AUTO) 0.7 % (0-1); EOSINOPHILS # (AUTO) 0.1 X10'3 (0-0.9); EOSINOPHILS % (AUTO) 0.8 % (0-6); HEMATOCRIT 30.4 % (42.0-52.0); HEMOGLOBIN 10.1 g/dl (14.0-17.9); LYMPHOCYTES # (AUTO) 1.3 X10'3 (1.1-4.8); LYMPHOCYTES % (AUTO) 19.3 % (21-51); MEAN CORPUSCULAR HEMOGLOBIN 33.2 PG (27.0-31.0); MEAN CORPUSCULAR HGB CONC 33.2 g/dL (33.0-36.5); MEAN CORPUSCULAR VOLUME 100.2 FL (78-98); MEAN PLATELET VOLUME 7.7 FL (7.4-10.4); MONOCYTES # (AUTO) 0.4 X10'3 (0-0.9); MONOCYTES % (AUTO) 5.5 % (2-12); NEUTROPHILS # (AUTO) 5.1 X10'3 (1.8-7.7); NEUTROPHILS % (AUTO) 73.7 % (42-75); PLATELET COUNT 267 X10'3 (140-440); RED BLOOD COUNT 3.03 X10'6 (4.70-6.10); RED CELL DISTRIBUTION WIDTH 14.7 % (11.5-14.5); WHITE BLOOD COUNT 6.9 X10'3 (4.5-11.0)
[2024-10-23 04:48] LABS: % IRON SATURATION 23 % (11-46); IRON 36 UG/DL (53-167); TOTAL IRON BINDING CAPACITY 155 UG/DL (259-388)
[2024-10-23 05:02] LABS: ALANINE AMINOTRANSFERASE 26 U/L (12-78); ALBUMIN 2.3 G/DL (3.4-5.0); ALBUMIN/GLOBULIN RATIO 0.6 (1.1-1.5); ALKALINE PHOSPHATASE 201 IU/L (46-116); ANION GAP 6 (8-16); ASPARTATE AMINO TRANSFERASE 42 U/L (10-37); BLOOD UREA NITROGEN 10 MG/DL (7-18); BUN/CREATININE RATIO 13.3 (10.0-20.0); CALCIUM 7.8 MG/DL (8.5-10.1); CHLORIDE 109 MMOL/L (99-107); CHOL/HDL RATIO 6.1 (0.00-4.99); CHOLESTEROL 176 MG/DL (0-200); CREATININE 0.75 MG/DL (0.60-1.10); FERRITIN 372 NG/ML (26-388); GLUCOSE 95 MG/DL (70-104); HDL CHOLESTEROL 29 MG/DL (35-60); LDL CHOLESTEROL 116 MG/DL (50-100); MAGNESIUM 1.6 MG/DL (1.5-2.4); POTASSIUM 3.7 MMOL/L (3.5-5.1); SODIUM 143 MMOL/L (135-145); TOTAL CARBON DIOXIDE 27.6 MMOL/L (24-32); TOTAL PROTEIN 6.4 G/DL (6.4-8.2); TRIGLYCERIDES 183 MG/DL (20-135); eCRCL 108 ML/MIN; eGFR > 90 ML/MIN
[2024-10-23] MEDS: docusate sod 100mg capsule PO SCH (08:00)
[2024-10-23] MEDS: K and/or MAG REPLACEMENT MC SCH (08:00)
[2024-10-23] MEDS: thiamine 100mg/ml 2ml inj. IV SCH (08:11)
[2024-10-23] MEDS: CefTRIAXone/D5W-Rocephin 1gm 50 ML IV SCH (08:11)
[2024-10-23] MEDS: pantoprazole 40 MG vial IV SCH (08:11)
[2024-10-23] MEDS: multivitamins, therapeutics tablet PO SCH (08:11)
[2024-10-23] MEDS: heparin, porcine 5000 units/ml vial SQ SCH (08:12)
[2024-10-23] MEDS: folic acid 1mg/0.2ml inj IV SCH (08:13)
--- NOTE | 2024-10-23 09:43 | CONSULTATION REPORT - RESIDENT ---
Consult Providers to CC Resident Creating Document: TOMAS TYSONRHINABALA AKI CC: BRIAN RICH MD History of Present Illness Reason for Admit\Complaint: Blood per rectum History of Present Illness Patient is a 43-year-old male with history of hypertension, hyperlipidemia, history of neck injury and chronic neck pain, and alcohol use disorder who came to the ED yesterday due to blood per rectum. Patient reports that last Tuesday he presented with episodes of blood per rectum, total of 3 or 4 episodes, about half of the episodes were just blood in the other half mixed with stools. He denies abdominal pain, nausea, vomiting, fevers or chills. He has not had anymore episodes since admission. Patient has never had a colonoscopy, but states he was supposed to get one this year. He had an EGD in 2010 which he believes was normal. Patient does take ibuprofen occasionally for neck pain, once or twice a week. He does not take any blood thinners. He denies history of similar episodes in the past. GI has been consulted for further evaluation and consideration of colonoscopy. Allergies: Coded Allergies: Penicillins (Verified Allergy, Unknown, 10/22/24) Sulfa (Sulfonamide Antibiotics) (Verified Allergy, Unknown, 10/22/24) Home Medications Home Medications Active Reported Melatonin 5 Mg Capsule 1 Cap PO HS Acidophilus (Lactobacillus Acidophilus) Unknown Strength Tablet Unknown Dose PO DAILY Multi Vitamin Daily (Multivitamin) Unknown Strength Tablet Unknown Dose PO DAILY Folic Acid* (Folic Acid) 0.4 Mg Tablet 1 Tab PO DAILY Gabapentin Unknown Strength Capsule Unknown Dose PO Q8H Naproxen Unknown Strength Tablet Unknown Dose PO DAILY Oxybutynin Chloride 5 Mg Tablet 2 Tab PO HS Baclofen 10 Mg Tablet 1 Tab PO Q6H Past Medical History Past Medical History Hypertension Hyperlipidemia History of neck injury and chronic neck pain Wheelchair-bound Alcohol use disorder Past Surgical History Surgical History Comment Denies smoking Heavy drinker, 10 or 12 oz of vodka 3 or 4 times a week. He states he is trying to quit. He does have history of alcohol withdrawal Denies recreational drugs Lives alone but has family support He is disabled Family History Family History: FH: hypertension FATHER, Name: Karsten Rangel (DM), Age: 70 FH: type 2 diabetes FATHER, Name: Karsten Claire (DM), Age: 70 ROS ROS All systems were reviewed and found negative except for pertinent positives mentioned in HPI Exam Vitals: Vital Signs Date Time Temp Pulse Resp B/P (MAP) Pulse Ox O2 Delivery O2 Flow Rate FiO2 10/23/24 08:00 16 95 Room Air 10/23/24 06:00 97.1 90 156/79 (104) 10/22/24 18:33 0 General: General: awake, alert oriented to place, time, and person HEENT: No pallor present, no icterus, moist mucous membranes Neck: No masses and tenderness Resp: Unlabored. Lungs clear to auscultation bilaterally. Chest: Normal expansion Cardiovascular: Regular Rate and rhythm, normal S1 and S2 without murmur, rub or gallop Abdomen: Soft and nontender, no organomegaly, no guarding and rigidity, bowel sounds present Neuro: Sequela muscle contractures and both hands and right leg with limited mobility. Normal reflexes bilaterally. Cranial nerves intact Extremities: No cyanosis,clubbing or edema. Rest as above Skin: Sacral pressure wound present Psych: Normal affect Diagnostic Data Last Recorded Lab Results: 10/23/24 0413 10/23/24 0413 Diagnostic Data: Laboratory Tests Test 10/22/24 19:16 Prothrombin Time 11.1 SECONDS (9.0-12.0) INR International Normalized Ratio 1.1 INR Coagulation Comments Additional Plan Gastroenterology consult note: Patient is a 43-year-old male with history of hypertension, hyperlipidemia, history of neck injury and chronic neck pain, and alcohol use disorder who came to the ED yesterday due to blood per rectum. GI has been consulted for further evaluation and consideration of colonoscopy. Blood per rectum Differential diagnosis include but not limited to: Diverticular bleed, internal hemorrhoids, mucosal tears, vascular malformations Hypochromic microcytic anemia Hepatic steatosis Patient with 4 episodes of hematochezia on Tuesday, none since admission No family history of colon cancer No prior colonoscopies Hemoglobin stable at 10 Occult blood is positive Abdominal ultrasound shows hepatomegaly with increased hepatic echogenicity which may be from hepatic steatosis/hepatic disease Patient discussed in detail with Dr. Courtney, plan: Clear liquid diet Start colon prep with GoLYTELY NPO after midnight Colonoscopy tomorrow Other comorbidities include: UTI, recurrent Sepsis 2/2 UTI- POA Cellulitis, RLE Hepatic steatosis Alcohol use disorder History of alcohol withdrawal Sacral pressure wound Management per hospitalist team Disposition: Colonoscopy tomorrow Bala Abraham MD Internal Medicine Resident PGY-1 Date of Service: Oct 23, 2024 Billing Provider: BRIAN RICH MD,BALA PRABHAKAR Oct 23, 2024 09:43
[2024-10-23] MEDS: ringers solution, lacted 1,000 ML IV SCH (11:40)
--- NOTE | 2024-10-23 11:47 | PROGRESS NOTE ---
Daily Progress Note Providers to CC ~ Antibiotic Timeout Antibiotic Ordered?: Yes Subjective No acute events overnight. Patient examined at bedside. No new complaints. Patient denies chest pain, sob, palpitations, abdominal pain, n/v/d. Vss, labs unremarkable. Urine culture gram negative della, continued on ceftriaxone. RFT unremarkable, US abdomen negative hydronephrosis. RLE negative DVT. LGIB, consulted GI Dr. Herndon. CT of RLE reveals pathologic fracture of the right proximal femur involving the femoral neck, intertrochanteric region, and proximal diaphysis associated with a destructive mass. Consulted Dr. Elizondo. 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 . Patient is being admitted for GI bleed and right lower extremity swelling # LGIB # Normocytic anemia # IVÁN -bereket blood in the stool, stool occult blood positive -10/23: H/H stable, consulted GI Dr. Herndon # Fracture, malignant 10/23: CT of RLE reveals pathologic fracture of the right proximal femur involving the femoral neck, intertrochanteric region, and proximal diaphysis associated with a destructive mass. Findings are highly suspicious for malignancy, including metastatic disease or primary bone sarcoma. -follow MRI b/l LE, CT chest/abd/pelv; consulted orthopedic surgeon Dr. Elizondo who will follow # UTI, recurrent # Sepsis 2/2 UTI- POA -10/23: urine culture gram negative della, continued on ceftriaxone; RFT unremarkable, US abdomen negative hydronephrosis; follow blood/urine cx # Cellulitis, RLE -10/23: US venous negative, abx; follow CT RLE # Hepatic steatosis -10/23: t.bili normalized, follow labs, start IV LR # Alcohol use disorder -on moderate alcohol withdrawal protocol -social service consulted Code status: Full code DVT/VTE prophylaxis: heparin Date of Service: Oct 23, 2024 Billing Provider: JEANNETTE GRANGER Common Visit Codes: [id number] INP/OBS CARE (HIGH) JEANNETTE GRANGER Oct 23, 2024 11:47
[2024-10-23] MEDS: PEG 3350/Na sulf,bicarb,Cl/KCl oral sol 4 liter bottle PO ONE (12:50)
--- NOTE | 2024-10-23 14:05 | RADIOLOGY REPORT ---
CLINICAL INFORMATION: 43 years old, Male; Leg swelling. TECHNIQUE: Axial CT images of the right lower extremity were obtained from the level of the right francesca ac crest through most of the right foot without IV contrast. Coronal and sagittal reformatted images were obtained, reviewed, and stored. All CT scans at this medical facility are performed using dose modulation techniques as appropriate to a performed exam including the following: Automated exposure control was utilized; adjustment of the MA and/or KV according to patient size; and use of iterative reconstruction technique. CTDIvol = 16.76, 16.76, 0.07, 0.07 mGy DLP = 1803.38 mGy-cm COMPARISON: No prior dedicated imaging of the right lower extremity was available for comparison at he time of dictation. Correlation is made to prior CT of the abdomen and pelvis dated 06/28/2023, [facility] includes imaging of the right hip. FINDINGS: There is extensive cortical destruction involving the right proximal femur, including the f emoral neck, intertrochanteric region, and proximal diaphysis with pathologic fracture and suspected mass with intraosseous and extraosseous components measuring up to approximately 9.8 x 7.5 x 10.6 cm. The mass invades the adjacent musculature, including the vastus lateralis, vastus intermedius, vastu s medialis, and adjacent portions of the adductor musculature. No other suspicious intraosseous lesio n or acute fracture identified in the left lower extremity. There is diffuse subcutaneous edema throu ghout the left leg, most prominent at its distal aspects. No organized fluid collection identified. P rominent nodular soft tissue densities adjacent to the 1st MTP joint. IMPRESSION: 1. Pathologic fracture of the right proximal femur involving the femoral neck, intertrochanteric john on, and proximal diaphysis associated with a destructive mass as detailed above. Findings are highly suspicious for malignancy, including metastatic disease or primary bone sarcoma. MRI could be obtain ed to further characterize. 2. Nodular soft tissue densities adjacent to the 1st MTP joint, findings may be seen with tophaceous gout in the appropriate clinical setting, although correlation with clinical findings is needed. 3. Diffuse subcutaneous edema throughout the left leg, most prominent at its distal aspect, may be du e to cellulitis in the appropriate clinical setting. No organized fluid collection identified. Critical findings Critical Result: Suspected malignancy with pathologic fracture. A message was left for the ordering physician number provided at 10/23/2024 04:01 PM CDT. The report will be submitted pending discussion with the ordering physician. ..
[2024-10-23] MEDS: diatr meglu/diatrizoate 30ml oral sol.-(3 dose) bottle PO SCH (21:43)
[2024-10-24] VITALS (9 sets, daily range): BP systolic 125–196; BP diastolic 70–112; PULSE 76–95; RESP 14–18; TEMP 97.6–99.4; O2SAT 66–98
[2024-10-24 04:59] LABS: BASOPHILS # (AUTO) 0.1 X10'3 (0-0.2); EOSINOPHILS # (AUTO) 0.1 X10'3 (0-0.9); EOSINOPHILS % (AUTO) 1.5 % (0-6); HEMATOCRIT 30.9 % (42.0-52.0); HEMOGLOBIN 10.5 g/dl (14.0-17.9); LYMPHOCYTES # (AUTO) 1.3 X10'3 (1.1-4.8); LYMPHOCYTES % (AUTO) 20.8 % (21-51); MEAN CORPUSCULAR HEMOGLOBIN 33.9 PG (27.0-31.0); MEAN CORPUSCULAR HGB CONC 34.1 g/dL (33.0-36.5); MEAN CORPUSCULAR VOLUME 99.4 FL (78-98); MEAN PLATELET VOLUME 7.9 FL (7.4-10.4); MONOCYTES # (AUTO) 0.5 X10'3 (0-0.9); MONOCYTES % (AUTO) 8.5 % (2-12); NEUTROPHILS # (AUTO) 4.4 X10'3 (1.8-7.7); NEUTROPHILS % (AUTO) 68.2 % (42-75); PLATELET COUNT 271 X10'3 (140-440); RED BLOOD COUNT 3.11 X10'6 (4.70-6.10); RED CELL DISTRIBUTION WIDTH 14.6 % (11.5-14.5); WHITE BLOOD COUNT 6.4 X10'3 (4.5-11.0)
[2024-10-24 05:19] LABS: ALANINE AMINOTRANSFERASE 24 U/L (12-78); ALBUMIN 2.3 G/DL (3.4-5.0); ALBUMIN/GLOBULIN RATIO 0.5 (1.1-1.5); ALKALINE PHOSPHATASE 216 IU/L (46-116); ANION GAP 6 (8-16); ASPARTATE AMINO TRANSFERASE 56 U/L (10-37); BLOOD UREA NITROGEN 6 MG/DL (7-18); BUN/CREATININE RATIO 7.5 (10.0-20.0); CALCIUM 8.1 MG/DL (8.5-10.1); CHLORIDE 105 MMOL/L (99-107); GLUCOSE 88 MG/DL (70-104); MAGNESIUM 1.6 MG/DL (1.5-2.4); POTASSIUM 3.8 MMOL/L (3.5-5.1); SODIUM 141 MMOL/L (135-145); TOTAL CARBON DIOXIDE 30.1 MMOL/L (24-32); TOTAL PROTEIN 6.6 G/DL (6.4-8.2); eCRCL 101 ML/MIN; eGFR > 90 ML/MIN
[2024-10-24] MEDS: losartan 25mg tablet PO SCH (07:54)
[2024-10-24] MEDS ORDERED: iohexol 300mg/ml 100ml inj. ONE (07:55)
--- NOTE | 2024-10-24 10:04 | RADIOLOGY REPORT ---
EXAM: MR MRI LOWER EXTREMITY RIGHT CLINICAL INDICATION: Sarcoma, pathologic fracture COMPARISON: CT CT LOWER EXTREMITY on DOS: 10/23/24 TECHNIQUE: Multiplanar, multisequence MRI of the right femur was performed without intravenous contra st. The contralateral femur is included on the sequences. Please note that only axial T1, axial T2 we ighted and coronal T1 weighted image are performed as the patient was unable to complete the entire s tudy. Contrast: None INTERPRETATION: Bones: There is confluent T1 hypointensity within the in the intertrochanteric right femoral neck an d extension into the adjacent soft tissues. This mass is T1 hypointense, T2 hyperintense and measure s 9.9 x 7.8 x 10.5 cm. There is a fracture plane through the right intertrochanteric femoral neck con sistent with pathologic fracture. Additional fracture plane is noted in the proximal diaphysis of th e right femur consistent with a additional fracture. There is serpiginous low signal intensity foci i n the proximal right tibia and the bilateral distal femurs consistent with osteonecrosis. In the left femur, no marrow replacing lesion is identified. Soft tissues: There is no muscle atrophy. There is extension into the right quadriceps muscles and the adductor muscles. There is reactive soft tissue edema in the right adductor muscles. No soft ti ssue abnormality in the incompletely evaluated left femur. No obvious lymphadenopathy. IMPRESSION: 1. 10.5 cm right femoral neck mass consistent with malignancy with extraosseous extension into the ad jacent soft tissues, and associated pathologic fracture of the intertrochanteric right femoral neck. 2. Additional fracture noted in the proximal femoral diaphysis. 3. 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 4. No marrow replacing lesion in the left femur.
[2024-10-24] MEDS: hydrALAZINE 20mg/ml inj. IV PRN (10:18)
[2024-10-24] MEDS: hydrALAZINE 25 MG tablet PO ONE (10:45)
[2024-10-24] MEDS ORDERED: hydrALAZINE 20mg/ml inj. IV PRN (10:45)
[2024-10-24] MEDS: losartan 50mg tablet PO ONE (11:20)
[2024-10-24] MEDS: hydrALAZINE 20mg/ml inj. IV ONE (11:20)
--- NOTE | 2024-10-24 12:48 | RADIOLOGY REPORT ---
CT CT CHEST ABDOMEN PELVIS W/ IV ORAL CONTRAST HISTORY: metastasis Comparison Study: None TECHNIQUE: Multidetector CT of the chest, abdomen and pelvis was performed from lower neck to pubic s ymphysis with the use of intravenous contrast. Axial, coronal and sagittal multiplanar reformats were performed by the technologist on a separate workstation. Radiation Dose : CTDI vol 29.96 mGy, DLP 2270.95 mGy*cm. Findings: Chest: Lungs: Unremarkable Pleura: Unremarkable Heart/Great vessels: The visualized heart is unremarkable. No cardiomegaly or pericardial effusion. Mediastinum: Unremarkable Soft tissues/Bones: Bilateral chronic rib fracture deformities. Abdomen: Liver: Fatty infiltration of the liver. Gallbladder: Contracted gallbladder, but otherwise unremarkable. Spleen: Unremarkable Pancreas: Unremarkable Adrenals: Unremarkable Kidneys: Unremarkable GI tract: Unremarkable : Unremarkable. Vasculature: Slightly prominent multiple retroperitoneal nodes. Lymphadenopathy: Absent Peritoneum: No ascites Musculoskeletal: Comminuted fracture of the right femoral neck/ proximal femur with associated cortic al disruption and 9.7 x 10.0 cm enhancing soft tissue lesion. Soft tissues: Right hip subcutaneous inflammatory changes and skin thickening. Impression: Chest: 1. No acute cardiopulmonary disease. Abdomen: 1. No acute abdominopelvic abnormalities. 2. Hepatic steatosis. 3. Pathologic right femoral neck fracture with a 10 cm enhancing soft tissue lesion. Correlate with t issue sampling if not already performed. 4. Slightly prominent retroperitoneal nodes, nonspecific. 5. Right hip subcutaneous inflammatory changes and skin thickening. Attention on follow-up. 6. Recommend PET-CT for better evaluation of possible metastatic disease.
--- NOTE | 2024-10-24 14:06 | PROGRESS NOTE ---
Daily Progress Note Providers to CC ~ Antibiotic Timeout Antibiotic Ordered?: Yes Subjective No acute events overnight. Patient examined at bedside. No new complaints. Patient denies chest pain, sob, palpitations, abdominal pain, n/v/d. Vss, labs unremarkable. Urine culture gram negative della, continued on ceftriaxone. RFT unremarkable, US abdomen negative hydronephrosis. RLE negative DVT. LGIB, on Golytely, patient unable to complete for colonoscopy which is held. CT of RLE reveals pathologic fracture of the right proximal femur involving the femoral neck, intertrochanteric region, and proximal diaphysis associated with a destructive mass. Dr. Elizondo will follow. Objective Vital Signs Date Time Temp Pulse Resp B/P (MAP) Pulse Ox O2 Delivery O2 Flow Rate FiO2 10/24/24 11:20 76 10/24/24 10:00 97.6 14 196/87 (123) 95 10/24/24 08:00 Room Air 10/22/24 18:33 0 Result Diagram: 10/24/24 0408 10/24/24 0408 Physical Exam General: Generalized weakness, A&Ox 3, NAD, paraplegic HEENT: Normocephalic, PERRLA Neck: Supple, trachea midline, no JVD Chest: Clear to auscultation bilaterally Cardiovascular: RRR, S1&S2 GI: Soft and nontender Extremities: +1 edema RLE CREDIT ADVISOR: Paraplegic Musculoskeletal: No paraspinal muscle tenderness, no muscle spasm Skin: RLE scabbed wounds Coagulation Studies Laboratory Tests Test 10/22/24 19:16 Prothrombin Time 11.1 SECONDS (9.0-12.0) INR International Normalized Ratio 1.1 INR Coagulation Comments Problem\Assessment\Plan This is a 43 year old female with past medical histor of HTn, Paraplegia-wheel chair bound, alcohol use disorder came to the ER with the chief complaint of bloody stools and right leg swelling. . Patient is being admitted for GI bleed and right lower extremity swelling # LGIB # Normocytic anemia # IVÁN -bereket blood in the stool, stool occult blood positive -10/23: H/H stable, consulted GI Dr. Herndon -10/24: on Golytely, patient unable to complete for colonoscopy which is held # Fracture, malignant- POA 10/23: CT of RLE reveals pathologic fracture of the right proximal femur involving the femoral neck, intertrochanteric region, and proximal diaphysis associated with a destructive mass. Findings are highly suspicious for malignancy, including metastatic disease or primary bone sarcoma. -follow MRI b/l LE, CT chest/abd/pelv; consulted orthopedic surgeon Dr. Elizondo who will follow # UTI, recurrent # Sepsis 2/2 UTI- POA -10/23: urine culture gram negative della, continued on ceftriaxone; RFT unremarkable, US abdomen negative hydronephrosis; follow blood/urine cx # Cellulitis, RLE -10/23: US venous negative, abx; follow CT RLE # Hepatic steatosis -10/23: t.bili normalized, follow labs, start IV LR # Alcohol use disorder -on moderate alcohol withdrawal protocol -social service consulted Code status: Full code DVT/VTE prophylaxis: heparin Date of Service: Oct 24, 2024 Billing Provider: JEANNETTE GRANGER Common Visit Codes: [id number] INP/OBS CARE(HIGH) JEANNETTE GRANGER Oct 24, 2024 14:06
--- NOTE | 2024-10-24 14:45 | PROGRESS NOTE- Residence ---
Progress Note - Resident Providers to CC Resident Creating Document: BALA PERES CC: BRIAN RICH MD ~ Antibiotic Timeout Antibiotic Ordered?: Yes Subjective Patient was examined at bedside today. He states he is feeling well. He denies having any bowel movements with Golytely but nurse reports seven bowel movements overnight. He has not completed the prep Objective Vital Signs Date Time Temp Pulse Resp B/P (MAP) Pulse Ox O2 Delivery O2 Flow Rate FiO2 10/24/24 11:20 76 10/24/24 10:00 97.6 14 196/87 (123) 95 10/24/24 08:00 Room Air 10/22/24 18:33 0 Result Diagram: 10/24/24 0408 10/24/24 040 General: awake, alert oriented to place, time, and person HEENT: No pallor present, no icterus, moist mucous membranes Neck: No masses and tenderness Resp: Unlabored. Lungs clear to auscultation bilaterally. Chest: Normal expansion Cardiovascular: Regular Rate and rhythm, normal S1 and S2 without murmur, rub or gallop Abdomen: Soft and nontender, no organomegaly, no guarding and rigidity, bowel sounds present Neuro: Sequela muscle contractures and both hands and right leg with limited mobility. Normal reflexes bilaterally. Cranial nerves intact Extremities: No cyanosis,clubbing or edema. Rest as above Skin: Sacral pressure erythema present. No wounds Psych: Normal affect Coagulation Studies Laboratory Tests Test 10/22/24 19:16 Prothrombin Time 11.1 SECONDS (9.0-12.0) INR International Normalized Ratio 1.1 INR Coagulation Comments Plan Plan Gastroenterology progress note: Patient is a 43-year-old male with history of hypertension, hyperlipidemia, history of neck injury and chronic neck pain, and alcohol use disorder who came to the ED yesterday due to blood per rectum. GI has been consulted for further evaluation and consideration of colonoscopy. Blood per rectum Differential diagnosis include but not limited to: Diverticular bleed, internal hemorrhoids, mucosal tears, vascular malformations Hypochromic microcytic anemia Hepatic steatosis Patient with 4 episodes of hematochezia on Tuesday, none since admission No family history of colon cancer No prior colonoscopies Hemoglobin stable at 10.5 Occult blood is positive Abdominal ultrasound shows hepatomegaly with increased hepatic echogenicity which may be from hepatic steatosis/hepatic disease Patient discussed in detail with Dr. Courtney, plan: Continue colon prep with GoLYTELY NPO after midnight Colonoscopy deferred for tomorrow Other comorbidities include: UTI, recurrent Sepsis 2/2 UTI- POA Cellulitis, RLE Hepatic steatosis Alcohol use disorder History of alcohol withdrawal Sacral pressure wound Management per hospitalist team Disposition: Colonoscopy deferred for tomorrow Bala Krishnamurthy MD Internal Medicine Resident PGY-1 Date of Service: Oct 24, 2024 Billing Provider: BRIAN RICH MD, LEONARDO LUIS Oct 24, 2024 14:45
--- NOTE | 2024-10-24 17:13 | RADIOLOGY REPORT ---
EXAM: DI HIP,UNI 4VWS (INCLUDE PELVIS) CLINICAL HISTORY: path fx hip right COMPARISON: None TECHNIQUE: DI HIP,UNI 4VWS (INCLUDE PELVIS) Findings/Impression: 2 views of the right hip with frontal view of the pelvis. Comminuted, pathologic fracture of the right femoral neck/ proximal femur. Adjacent soft tissue lesio n. There is no evidence of dislocation, blastic, or lytic lesions. No radiopaque foreign bodies.
[2024-10-24] MEDS: hyDRALAzine 10mg tablet PO SCH (20:26)
[2024-10-24] MEDS ORDERED: LORazepam 1 MG tablet PO PRN (23:55)
[2024-10-24] MEDS ORDERED: LORazepam 2 mg/ml vial IV PRN (23:55)
[2024-10-25] VITALS (14 sets, daily range): BP systolic 101–147; BP diastolic 52–104; PULSE 74–97; RESP 14–20; TEMP 98–98.9; O2SAT 95–100
--- NOTE | 2024-10-25 04:09 | RADIOLOGY REPORT ---
EXAM: MR MRI LOWER EXTREMITY left CLINICAL INDICATION: Sarcoma, pathologic fracture. COMPARISON: CT CT LOWER EXTREMITY on DOS: 10/23/24. TECHNIQUE: Multiplanar, multisequence MRI of the left femur was performed without intravenous contras t. The contralateral femur is included on the sequences. Please note that only axial T1, axial T2 elena ghted and coronal T1 weighted image are performed as the patient was unable to complete the entire st udy. Contrast: None INTERPRETATION: Bones: No marrow replacing lesion is identified in the left femur. No bone marrow edema or fracture i s present. There is confluent T1 hypointensity within the in the intertrochanteric right femoral neck and extension into the adjacent soft tissues. This mass is T1 hypointense, T2 hyperintense and measu res 9.9 x 7.8 x 10.5 cm. There is a fracture plane through the right intertrochanteric femoral neck c onsistent with pathologic fracture. Additional fracture plane is noted in the proximal diaphysis of t he right femur consistent with additional nondisplaced fracture. There is serpiginous low signal inte nsity foci in the proximal right tibia and the bilateral distal femurs consistent with osteonecrosis. Soft tissues: There is no muscle atrophy. There is extension into the right quadriceps muscles and th e adductor muscles. There is reactive soft tissue edema in the right adductor muscles. No soft tissue abnormality in the incompletely evaluated left femur. No obvious lymphadenopathy. IMPRESSION: 1. No marrow replacing lesion or fracture of the left femur. 2. 10.5 cm right femoral neck mass consistent with malignancy with extraosseous extension into the ad jacent soft tissues, and associated pathologic fracture of the intertrochanteric right femoral neck. 3. 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
[2024-10-25 04:23] LABS: BASOPHILS % (AUTO) 0.8 % (0-1); EOSINOPHILS # (AUTO) 0.2 X10'3 (0-0.9); EOSINOPHILS % (AUTO) 2.9 % (0-6); HEMOGLOBIN 10.6 g/dl (14.0-17.9); LYMPHOCYTES # (AUTO) 1.3 X10'3 (1.1-4.8); LYMPHOCYTES % (AUTO) 21.4 % (21-51); MEAN CORPUSCULAR HEMOGLOBIN 33.2 PG (27.0-31.0); MEAN CORPUSCULAR HGB CONC 33.1 g/dL (33.0-36.5); MEAN CORPUSCULAR VOLUME 100.3 FL (78-98); MEAN PLATELET VOLUME 7.4 FL (7.4-10.4); MONOCYTES # (AUTO) 0.7 X10'3 (0-0.9); MONOCYTES % (AUTO) 11.3 % (2-12); NEUTROPHILS # (AUTO) 3.7 X10'3 (1.8-7.7); NEUTROPHILS % (AUTO) 63.6 % (42-75); PLATELET COUNT 270 X10'3 (140-440); RED BLOOD COUNT 3.19 X10'6 (4.70-6.10); WHITE BLOOD COUNT 5.9 X10'3 (4.5-11.0)
[2024-10-25 04:41] LABS: ALANINE AMINOTRANSFERASE 28 U/L (12-78); ALBUMIN 2.5 G/DL (3.4-5.0); ALBUMIN/GLOBULIN RATIO 0.6 (1.1-1.5); ALKALINE PHOSPHATASE 243 IU/L (46-116); ANION GAP 8 (8-16); ASPARTATE AMINO TRANSFERASE 80 U/L (10-37); BILIRUBIN,TOTAL 0.9 MG/DL (0.1-1.0); BLOOD UREA NITROGEN 4 MG/DL (7-18); BUN/CREATININE RATIO 5.1 (10.0-20.0); CALCIUM 8.1 MG/DL (8.5-10.1); CHLORIDE 104 MMOL/L (99-107); CREATININE 0.79 MG/DL (0.60-1.10); GLUCOSE 77 MG/DL (70-104); MAGNESIUM 1.8 MG/DL (1.5-2.4); POTASSIUM 3.8 MMOL/L (3.5-5.1); SODIUM 140 MMOL/L (135-145); TOTAL CARBON DIOXIDE 28.3 MMOL/L (24-32); TOTAL PROTEIN 6.5 G/DL (6.4-8.2); eCRCL 103 ML/MIN; eGFR > 90 ML/MIN
[2024-10-25] MEDS: amLODIPine 5mg tablet PO ONE (08:04)
[2024-10-25] MEDS: losartan 50mg tablet PO SCH (08:05)
[2024-10-25] MEDS ORDERED: LIDOcaine 2% (20mg/ml) 5ml vial ONE (09:04)
[2024-10-25] MEDS ORDERED: fentaNYL/PF 50MCG/1 ML 2ML syringe ONE (09:04)
[2024-10-25] MEDS ORDERED: propofol inj 20 ML IV ONE (09:04)
--- NOTE | 2024-10-25 11:00 | PROGRESS NOTE ---
Daily Progress Note Providers to CC ~ Antibiotic Timeout Antibiotic Ordered?: Yes Subjective No acute events overnight. Patient examined at bedside. No new complaints, not in acute distress. Patient denies chest pain, sob, palpitations, abdominal pain, n/v/d. Vss, labs unremarkable. Urine culture resulted for E.coli sensitive to ceftriaxone. Per Dr. Elizondo, patient needs to be transferred to higher-level facility for orthopedic oncologist evaluation. Patient underwent colonoscopy with findings of two 8mm polyps which are resected and nonbleeding internal hemorrhoids. Objective Vital Signs Date Time Temp Pulse Resp B/P (MAP) Pulse Ox O2 Delivery O2 Flow Rate FiO2 10/25/24 08:53 80 16 10/25/24 08:40 Room Air 10/25/24 07:23 98.9 141/92 (108) 97 10/22/24 18:33 0 Result Diagram: 10/25/2440410/25/24404 Physical Exam General: Generalized weakness, A&Ox 3, NAD, paraplegic HEENT: Normocephalic, PERRLA Neck: Supple, trachea midline, no JVD Chest: Clear to auscultation bilaterally Cardiovascular: RRR, S1&S2 GI: Soft and nontender Extremities: +1 edema RLE SECOND COOK AND BAKER: Paraplegic Musculoskeletal: No paraspinal muscle tenderness, no muscle spasm Skin: RLE scabbed wounds Coagulation Studies Laboratory Tests Test 10/22/24 19:16 Prothrombin Time 11.1 SECONDS (9.0-12.0) INR International Normalized Ratio 1.1 INR Coagulation Comments Problem\Assessment\Plan This is a 43 year old female with past medical histor of HTn, Paraplegia-wheel chair bound, alcohol use disorder came to the ER with the chief complaint of bloody stools and right leg swelling. . Patient is being admitted for GI bleed and right lower extremity swelling # LGIB # Internal hemorrhoids # Normocytic anemia # IVÁN -bereket blood in the stool, stool occult blood positive -10/23: H/H stable, consulted GI Dr. Herndon -10/24: on Golytely, patient unable to complete for colonoscopy which is held -10/25: underwent colonoscopy with findings of two 8mm polyps which are resected and nonbleeding internal hemorrhoids. # Fracture, malignant- POA 10/23: CT of RLE reveals pathologic fracture of the right proximal femur involving the femoral neck, intertrochanteric region, and proximal diaphysis associated with a destructive mass. Findings are highly suspicious for malignancy, including metastatic disease or primary bone sarcoma. -follow MRI b/l LE, CT chest/abd/pelv; consulted orthopedic surgeon Dr. Elizondo who will follow -10/25: Per Dr. Elizondo, patient needs to be transferred to higher-level facility for orthopedic oncologist evaluation # UTI, recurrent # Sepsis 2/2 UTI- POA -10/23: urine culture gram negative della, continued on ceftriaxone; RFT unremarkable, US abdomen negative hydronephrosis; follow blood/urine cx -10/25: urine culture resulted for E.coli sensitive to ceftriaxone. # Cellulitis, RLE -10/23: US venous negative, abx; follow CT RLE # Hepatic steatosis -10/23: t.bili normalized, follow labs, start IV LR # Alcohol use disorder -on moderate alcohol withdrawal protocol -social service consulted Code status: Full code DVT/VTE prophylaxis: heparin Date of Service: Oct 25, 2024 Billing Provider: JEANNETTE GRANGER Common Visit Codes: 54211-[id number] INP/OBS CARE(HIGH) JEANNETTE GRANGER Oct 25, 2024 11:00
[2024-10-25] MEDS: acetaminophen 325mg tablet PO PRN (21:19)
[2024-10-26 06:00] VITALS: BP 115/58; PULSE 90; RESP 16; TEMP 98.7; O2SAT 93
[2024-10-26 06:07] LABS: BASOPHILS % (AUTO) 0.5 % (0-1); EOSINOPHILS # (AUTO) 0.1 X10'3 (0-0.9); EOSINOPHILS % (AUTO) 2.6 % (0-6); HEMATOCRIT 30.1 % (42.0-52.0); HEMOGLOBIN 10.2 g/dl (14.0-17.9); LYMPHOCYTES # (AUTO) 1.2 X10'3 (1.1-4.8); LYMPHOCYTES % (AUTO) 22.7 % (21-51); MEAN CORPUSCULAR HEMOGLOBIN 33.9 PG (27.0-31.0); MEAN CORPUSCULAR HGB CONC 33.9 g/dL (33.0-36.5); MEAN CORPUSCULAR VOLUME 100.1 FL (78-98); MEAN PLATELET VOLUME 8.2 FL (7.4-10.4); MONOCYTES # (AUTO) 0.7 X10'3 (0-0.9); MONOCYTES % (AUTO) 12.5 % (2-12); NEUTROPHILS # (AUTO) 3.3 X10'3 (1.8-7.7); NEUTROPHILS % (AUTO) 61.7 % (42-75); PLATELET COUNT 236 X10'3 (140-440); RED BLOOD COUNT 3.01 X10'6 (4.70-6.10); RED CELL DISTRIBUTION WIDTH 15.3 % (11.5-14.5); WHITE BLOOD COUNT 5.4 X10'3 (4.5-11.0)
[2024-10-26 06:23] LABS: ALANINE AMINOTRANSFERASE 27 U/L (12-78); ALBUMIN 2.5 G/DL (3.4-5.0); ALBUMIN/GLOBULIN RATIO 0.7 (1.1-1.5); ALKALINE PHOSPHATASE 242 IU/L (46-116); ANION GAP 8 (8-16); ASPARTATE AMINO TRANSFERASE 63 U/L (10-37); BILIRUBIN,TOTAL 0.8 MG/DL (0.1-1.0); BLOOD UREA NITROGEN 14 MG/DL (7-18); BUN/CREATININE RATIO 14.4 (10.0-20.0); CALCIUM 8.2 MG/DL (8.5-10.1); CHLORIDE 107 MMOL/L (99-107); CREATININE 0.97 MG/DL (0.60-1.10); GLUCOSE 85 MG/DL (70-104); MAGNESIUM 1.8 MG/DL (1.5-2.4); POTASSIUM 4.4 MMOL/L (3.5-5.1); SODIUM 143 MMOL/L (135-145); TOTAL CARBON DIOXIDE 27.9 MMOL/L (24-32); TOTAL PROTEIN 6.3 G/DL (6.4-8.2); eCRCL 84 ML/MIN; eGFR 84 ML/MIN
[2024-10-26 09:00] VITALS: RESP 16
[2024-10-26] MEDS: amLODIPine 5mg tablet PO SCH (09:18)
[2024-10-26] MEDS: thiamine 100mg tablet PO SCH (09:19)
--- NOTE | 2024-10-26 09:30 | PROGRESS NOTE- Residence ---
Progress Note - Resident Providers to CC Resident Creating Document: BALA PERES CC: BRIAN RICH MD ~ Antibiotic Timeout Antibiotic Ordered?: Yes Subjective Patient was examined at bedside today. He is doing well. He denies any symptoms at this time. No nausea, vomiting, diarrhea, hematochezia, melena, or any other subjective symptoms. Objective Vital Signs Date Time Temp Pulse Resp B/P (MAP) Pulse Ox O2 Delivery O2 Flow Rate FiO2 10/26/24 09:20 90 10/26/24 06:00 98.7 16 115/58 (77) 93 Room Air 10/25/24 11:08 6.0 Result Diagram: 10/26/2416 10/26/24 0516 General: awake, alert oriented to place, time, and person HEENT: No pallor present, no icterus, moist mucous membranes Neck: No masses and tenderness Resp: Unlabored. Lungs clear to auscultation bilaterally. Chest: Normal expansion Cardiovascular: Regular Rate and rhythm, normal S1 and S2 without murmur, rub or gallop Abdomen: Soft and nontender, no organomegaly, no guarding and rigidity, bowel sounds present Neuro: Sequela muscle contractures and both hands and right leg with limited mobility. Normal reflexes bilaterally. Cranial nerves intact Extremities: No cyanosis,clubbing or edema. Rest as above Skin: Sacral pressure erythema present. No wounds Psych: Normal affect Coagulation Studies Laboratory Tests Test 10/22/24 19:16 Prothrombin Time 11.1 SECONDS (9.0-12.0) INR International Normalized Ratio 1.1 INR Coagulation Comments Plan Plan Gastroenterology progress note: Patient is a 43-year-old male with history of hypertension, hyperlipidemia, history of neck injury and chronic neck pain, and alcohol use disorder who came to the ED yesterday due to blood per rectum. GI has been consulted for further evaluation and consideration of colonoscopy. Blood per rectum Differential diagnosis include but not limited to: Diverticular bleed, internal hemorrhoids, mucosal tears, vascular malformations Hypochromic microcytic anemia Hepatic steatosis Patient admitted after 4 episodes of hematochezia, none since admission No family history of colon cancer No prior colonoscopies Hemoglobin has remained stable during hospital stay Occult blood is positive Abdominal ultrasound shows hepatomegaly with increased hepatic echogenicity which may be from hepatic steatosis/hepatic disease Colonoscopy yesterday showed two 8mm polyps in rectum which were biopsied. There were nonbleeding internal hemorrhoids. Otherwise unremarkable. Patient discussed in detail with Dr. Courtney, plan: - Follow up outpatient - Colonoscopy in 7-10 years - Ok to OK from GI standpoint Other comorbidities include: Pathologic fracture of right femur Femoral mass under investigation UTI, recurrent Sepsis 2/2 UTI- POA Cellulitis, RLE Hepatic steatosis Alcohol use disorder History of alcohol withdrawal Sacral pressure wound Management per hospitalist team Disposition: Ok to OK from GI standpoint. Possible transfer for higher level of care for suspected bone neoplasia Bala Krishnamurthy MD Internal Medicine Resident PGY-1 Date of Service: Oct 26, 2024 Billing Provider: BRIAN RICH MD, LEONARDO LUIS Oct 26, 2024 09:30
[2024-10-26 10:00] VITALS: BP 133/82; PULSE 91; RESP 17; TEMP 97.7; O2SAT 96
--- NOTE | 2024-10-26 10:30 | DISCHARGE SUMMARY ---
Discharge Summary Providers to CC ~ Discharge Summary Admission Diagnosis: pathologic fracture, LGIB, uti, sepsis Hospital Course DATE OF ADMISSION: 10/22/24 DATE OF DISCHARGE: 10/26/24 Discharge Diagnosis\\Comment: Fracture, malignant- POA UTI, recurrent Sepsis 2/2 UTI- POA LGIB Internal hemorrhoids Normocytic anemia IVÁN Hepatic steatosis Alcohol use disorder Cellulitis, RLE- ruled out Paraplegia Operations\\Procedures: Colonoscopy Consultants: Orthopedic Surgeon Dr. Elizondo GI Jessie Wesley Complications: None Condition on DC: Stable for transfer Discharge Summary: History of Present Illness From H&P: "This is a 43 year old female with past medical histor of HTn, Paraplegia-wheel chair bound, alcohol use disorder came to the ER with the chief complaint of bloody stools and right leg swelling. Two days ago He had 3-4 bowel movements with large amount of bereket blood. Yesterday he had a bowel movement which was normal. He had similar episodes in the past but never got evaluated for it. Denies any episodes of black-colored stools or bloody vomiting. Also denies fever. Denies any history of hemorrhoids. Never had a colonoscopy done. No family history of GI malignancies. Denies any history of liver disease. Denies any NSAIDs use, not on blood thinners. 3-4 days ago he bumped his right toe into something and later he noticed swelling and discoloration of his right lower extremity. Denies any pain or fever. In 2010 he had a cervical fracture after he had a fall it swimming pool. Since then he has been on wheelchair. He does self catheterization. Denies any burning micturition. He has a history of multiple UTIs in the past. He has a chronic alcoholic, drinks about three to 4 times a week, last drink was on Tuesday. Hospital Course Initial diagnostic findings were notable for urinalysis indicating urinary tract infection and CT lower extremity significant for pathological fracture of right proximal femur involving the femoral neck, intertrochanteric region, and proximal diaphysis associated with a destructive mass with findings are highly suspicious for malignancy, including metastatic disease or primary bone sarcoma. Pertinent negative findings were unremarkable chest x-ray, negative venous ultrasound lower extremities, knee x-ray negative for evidence of acute fracture, negative acute findings of abdominal ultrasound. A subsequent MRI revealed 10.5 cm right femoral neck mass consistent with malignancy with extraosseous extension into the adjacent soft tissues, and associated pathologic fracture of the intertrochanteric right femoral neck, fracture in the proximal femoral diaphysis, and osteonecrosis in the proximal right tibia and bilateral distal femurs, and no marrow replacing lesion or fracture of the left femur. CT abdomen/pelvis revealed no acute cardiopulmonary/abdominal pelvic abnormalities. Case was consulted with GI Dr. Herndon and patient underwent colonoscopy on 10/25/24 with findings of two 8 mm polyps which were resected and internal hemorrhoids without active bleeding. Case was consulted orthopedic surgeon Dr. Elizondo who recommended transfer to higher level facility for orthopedic oncologist consult. Patient did not experience further complications throughout the entire hospital stay. Patient was treated with Rocephin on admission. Urine culture resulted positive for E. coli with sensitivities to Rocephin. Blood pressure was well controlled with antihypertensives including losartan, amlodipine, and hydralazine. Patient was seen and examined on the day of discharge. On day of discharge, vss and labs unremarkable. All labs, diagnostic workups, discharge plan discussed with patient in details during visit before discharge. All questions and concerns answered to the best of my professional knowledge. Physical Exam General: Generalized weakness, A&Ox 3, NAD, paraplegic HEENT: Normocephalic, PERRLA Neck: Supple, trachea midline, no JVD Chest: Clear to auscultation bilaterally Cardiovascular: RRR, S1&S2 GI: Soft and nontender Extremities: +1 edema RLE TOP LIFT CUTTER: Paraplegic Musculoskeletal: No paraspinal muscle tenderness, no muscle spasm Skin: RLE scabbed wounds *Problems/Diagnosis: (1) UTI (urinary tract infection) Total Time Spent on D/C: > 30 Minutes Date of Service: Oct 26, 2024 Billing Provider: JEANNETTE GRANGER Common Visit Codes: 07831-GBI/OBS DISCH DAY >30min Problem Qualifiers (1) UTI (urinary tract infection): Qualified Codes: N30.01 - Acute cystitis with hematuria JEANNETTE GRANGER Oct 26, 2024 10:27
[2024-10-26] MEDS: ferrous sulfate 325mg tablet PO ONE (11:51)
--- NOTE | 2024-10-26 15:53 | PATHOLOGY REPORT ---
[facility] [address] [place] [address] SURGICAL PATHOLOGY REPORT CaseNumber: [id number] Surgeon:Jessie Herndon MD CLINICAL INFORMATION CLINICAL INFORMATION: Hematochezia. DIAGNOSIS DIAGNOSIS: POLYP, RECTUM, BIOPSY - BENIGN HYPERPLASTIC POLYP MICROSCOPIC DESCRIPTION MICROSCOPIC DESCRIPTION: Reviewed is a single H&E-stained slide showing serial sections and levels of a single polypoid fragment of colonic mucosa. There are areas involved by hyperplastic changes. Ther e are no dysplastic or neoplastic features. GROSS DESCRIPTION GROSS DESCRIPTION: Received in a container of formalin labeled with the patient's name, number, and " rectal polyp" is a 0.3 cm piece of winche[place] tissue. The specimen is entirely submitted as A1. The time at which the specimen was removed was 1035. The time at which the specimen was placed in formalin was 10 37. Electronically signed by: Jacob Kuhn M.D. 10/26/2024 3:13:00 PM
[2024-10-26 16:51] VITALS: RESP 16
[2024-10-26] MEDS: HYDROcodone/acetaminophen 5mg/325mg tablet PO ONE (16:51)
[2024-10-26] MEDS ORDERED: LORazepam 2 mg/ml vial IV PRN (23:55)
[2024-10-26] MEDS ORDERED: LORazepam 1 MG tablet PO PRN (23:55)
[2024-10-27] MEDS ORDERED: ferrous sulfate 325mg tablet PO SCH (08:00)
[2024-10-27] MEDS ORDERED: folic acid 1mg tablet PO SCH (08:00)
== END 2024-10-26 17:15 | disposition short-term general hospital (02) | DRG 872 ==
LOC: ER 10:25 → ED HOLD 19:23 → SUR 3N 23:15
PROVIDERS: ADMIT Internal Medicine Critical Care Medicine; ATTEND Nurse Practitioner Family
PROC: BW211ZZ Computerized Tomography (CT Scan) of Abdomen and Pelvis using Low Osmolar Contrast (ICD-10-PCS; principal; 2024-10-24)
PROC: 0DBP8ZZ Excision of Rectum, Via Natural or Artificial Opening Endoscopic (ICD-10-PCS; 2024-10-25)
DX: A41.9 Sepsis, unspecified organism (principal); G82.20 Paraplegia, unspecified; M84.451A Pathological fracture, right femur, initial encounter for fracture; M87.851 Other osteonecrosis, right femur; N39.0 Urinary tract infection, site not specified; K64.8 Other hemorrhoids; I10 Essential (primary) hypertension; D64.9 Anemia, unspecified; E80.6 Other disorders of bilirubin metabolism; R74.8 Abnormal levels of other serum enzymes; E78.5 Hyperlipidemia, unspecified; K76.0 Fatty (change of) liver, not elsewhere classified; K62.1 Rectal polyp; Z99.3 Dependence on wheelchair; Z83.3 Family history of diabetes mellitus; Z87.440 Personal history of urinary (tract) infections
CPT/HCPCS: 36415; 45380; 45385; 71045; 71260; 73503; 73560; 73700; 73718; 74177; 76700; 80053; 80061; 81001; 82248; 82272; 82728; 83036; 83540; 83550; 83605; 83735; 83880; 84484; 85025; 85610; 87040; 87077; 87081; 87088; 87186; 93005; 93971; 96365; 96368; 99285; A6213; A6590; C1758; C1889; G0378; J0360; J0696; J1644; J2003; J2470; J2704; J3010; J3411; J3490; J7040; J7042; J7120; Q9963; Q9967

== ENCOUNTER 2025-02-08 12:13 | Emergency (ER) | payer OTHER, MEDICARE ==
[~2025-02-08] VITALS: Ht 167.6 cm; Wt 86.0 kg
[~2025-02-08 12:13] MED LIST changes: -MIDO2.5T PO
--- NOTE | 2025-02-08 14:58 | RADIOLOGY REPORT ---
CLINICAL INDICATION: Pain and swelling TECHNIQUE: DI KNEE LIMITED (AP/LAT) Comparison: MR MRI LOWER EXTREMITY LEFT on DOS: 10/23/24, MR MRI LOWER EXTREMITY RIGHT on DOS: 10/23/24, CT CT LOWER EXTREMITY on DOS: 10/23/24, DI KNEE LIMITED (AP/LAT) on DOS: 10/22/24 FINDINGS/IMPRESSION: : There is no evidence of acute fracture or dislocation. Small joint effusion
--- NOTE | 2025-02-08 15:43 | Physician Documentation ---
History of Present Illness ~ Chief Complaint: Knee Pain Stated Complaint: LEFT SIDE PAIN Time Seen by MD: 12:38 Primary Medical Doctor: RAF Source: patient Mode of Arrival: EMS Exam Limitations: no limitations HPI Mr. Rangel is a 44 y/o male with PMHx significant for paraplegia 2/2 a spinal cord injury ( vet) who presents with c/o left knee pain and swelling. He has chronic pain but states that this is worse than his baseline. He denies trauma. No fever/chills. No history of previous joint infection. No recent procedures (i.e. arthrocentesis). His home pain meds are not relieving symptoms. Tetanus witin 5 years: Yes Medication Reconciliation Allergies: Coded Allergies: Penicillins (Verified Allergy, Unknown, 02/08/25) Sulfa (Sulfonamide Antibiotics) (Verified Allergy, Unknown, 02/08/25) Scheduled Baclofen (Baclofen), 1 TAB PO Q6H, (Reported) Folic Acid* (Folic Acid*), 1 TAB PO DAILY, (Reported) Gabapentin (Gabapentin), Unknown Dose PO Q8H, (Reported) Lactobacillus Acidophilus (Acidophilus), Unknown Dose PO DAILY, (Reported) Melatonin (Melatonin), 1 CAP PO HS, (Reported) Multivitamin (Multi Vitamin Daily), Unknown Dose PO DAILY, (Reported) Naproxen (Naproxen), Unknown Dose PO DAILY, (Reported) Oxybutynin Chloride (Oxybutynin Chloride), 2 TAB PO HS, (Reported) Past Medical History 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 Physical Exam Vital Signs: RN Vital Signs have been reviewed: Yes, Temperature: 98.6, Source: Temporal, Heart Rate: 81, Respiratory Rate: 18, BP: 130/70, Pulse Oximetry: 97, Weight: 86.000 Oxygen Flow Rate: 0 Physical Exam VITALS: Reviewed and as above. GENERAL: Alert, no apparent distress. HEENT: Normocephalic, atraumatic, PERRL, EOMI, dry mucosa, no erythema RESPIRATORY: Lungs clear, normal breath sounds, no respiratory distress. CHEST: No accessory muscle use, no retractions CV: Regular rate, rhythm, no edema, no murmur, No: JVD GI: Soft, tenderness to the lower abdomen with palpation., bowels sounds present, no rebound, guarding, or rigidity BACK: No CVA tenderness, or swelling MUSCULOSKELETAL mild swelling noted to left knee. 2+ pulses. No gross deformity. No cellulitis noted. No bruising noted. SKIN: Warm and dry, no rash NEURO: Oriented x4, No motor or sensory deficit PSYCH: Normal mood and affect, no agitation Progress Results/Orders Results/Orders Orders - KARRI REDDY MD Knee Limited (Ap/Lat) (02/08/25 12:52) Completed Orders - KARRI REDDY MD Knee Limited (Ap/Lat) (02/08/25 12:52) ESR (02/08/25 13:18) C-Reactive Protein (02/08/25 13:18) Ketorolac Trometh 15mg/Ml Vial (Toradol (02/08/25 16:05) Hydromorphone 0.5 Mg/0.5 Ml/Pf (Dilaudid (02/08/25 16:05) Medications Received in ER Medications (Trade) Dose Ordered Sig/Luis Route PRN Reason Start Time Stop Time Status Last Admin Dose Admin (Toradol injection) 15 mg ONCE ONCE IM 02/08/25 16:05 02/08/25 16:07 DC 02/08/25 16:23 15 MG (Dilaudid inj.) 0.5 mg ONCE ONCE IM 02/08/25 16:05 02/08/25 16:07 DC 02/08/25 16:23 0.5 MG Vital Signs 02/08/25 02/08/25 02/08/25 02/08/25 12:30 12:48 13:30 14:30 Temp 98.6 Pulse 81 71 81 Resp 16 18 18 B/P (MAP) 150/93 107/64 (78) 130/70 (90) Pulse Ox 98 94 97 O2 Flow Rate 0 0 0 02/08/25 02/08/25 15:30 16:30 Pulse 71 71 Resp 20 14 B/P (MAP) 148/93 (111) 149/94 (112) Pulse Ox 96 96 O2 Flow Rate 0 0 Laboratory Tests Test 02/08/25 13:46 Erythrocyte Sedimentation Rate 89 H C-Reactive Protein 21.70 H EKG/XRAY/CT/US/VASC/MRI Bone/Soft Tissue X-Ray (Ext.) : Interpreted By: self Views: 1 VIEW, 2 VIEW Indication: pain Location: knee Impression: normal Additional Comment I reviewed the plain film of his left knee and there are chronic changes but there are no signs of an acute osseous process. Medical Decision Making Knee Diff Dx:Considerations: Include: Arthritis, DJD, Gout, Meniscus injury, Rheumatoid arthritis, Septic Additional Comment While here in the ED, he remained hemodynamically normal with ABC's intact and in NAD. He is afebrile and nontoxic. Plain films of left knee with chronic changes but without obvious osseous abnormality as interpreted by me. He has no significant effusion. I have low clinical suspicion for an acute septic joint. There is no redness, warmth to the touch, of significant effusion noted on my exam. He was treated symptomatically here in the ED and states that he feels significantly better. He is safe for d/c home. Given follow-up and return instructions. He voiced understanding and agreement with d/c instructions. Departure Disposition: 01 HOME / SELF CARE / HOMELESS Impression: Primary Impression: Knee pain Condition: Improved Discharge Instructions: Arthritis, Chronic Knee Pain, Adult, [id number] Referrals: NO PRIMARY CARE PROVIDER (PCP) Education Educated: Patient Educated regarding: diagnosis, treatment Additional Comment Follow-up with your family physician and return to the Emergency Department if there are any additional concerns. Signature Scribe Signature: N/A Attestation: N/A KARRI REDDY MD Feb 08, 2025 15:43
[2025-02-08] MEDS: ketorolac trometh 15mg/ml vial 15 MG/ML ML IM ONE (16:23)
[2025-02-08] MEDS: HYDROmorphone inj. 0.5 MG/0.5 ML DISP.SYRIN IM ONE (16:23)
[2025-02-08 18:07] VITALS: BP 116/78; PULSE 68; RESP 18; TEMP 98.6; O2SAT 97
== END 2025-02-08 18:00 | disposition home or self-care (01) ==
LOC: ER 12:13
DX: M25.562 Pain in left knee (principal); G89.29 Other chronic pain; Z88.0 Allergy status to penicillin; Z88.2 Allergy status to sulfonamides; Z87.440 Personal history of urinary (tract) infections; Z79.899 Other long term (current) drug therapy; Z98.890 Other specified postprocedural states
CPT/HCPCS: 36415; 73560; 85651; 86140; 96372; 99285; J1171; J1885

== ENCOUNTER 2025-02-22 13:40 | Inpatient (IN) | payer OTHER, MEDICARE ==
[~2025-02-22] VITALS: Ht 172.7 cm; Wt 66.0 kg
--- NOTE | 2025-02-22 14:21 | Physician Documentation ---
History of Present Illness ~ Chief Complaint: Back Pain Stated Complaint: BACK PAIN Time Seen by MD: 13:44 Primary Medical Doctor: RAF Mode of Arrival: EMS, Stretcher HPI 44-year-old male presents to the ED with three days of mid back and lumbar pain. States it came on without injury. Is a pre-existing diagnosis of paralysis secondary to a neck fracture in 2010. Does have some mobility of his lower extremity and has altered sensation. Adds that he has also had increased numb ness over the last three days. Denies having a fever denies any shortness of breath or chest pain. Day of Onset: Feb 22, 2025 Medication Reconciliation Allergies: Coded Allergies: Penicillins (Verified Allergy, Unknown, 02/22/25) >5 years, hives, no treatment, PEN-FAST 2 Sulfa (Sulfonamide Antibiotics) (Verified Allergy, Unknown, 02/22/25) Scheduled Baclofen (Baclofen), 1 TAB PO Q6H, (Reported) Folic Acid* (Folic Acid*), 1 TAB PO DAILY, (Reported) Gabapentin (Gabapentin), Unknown Dose PO Q8H, (Reported) Lactobacillus Acidophilus (Acidophilus), Unknown Dose PO DAILY, (Reported) Melatonin (Melatonin), 1 CAP PO HS, (Reported) Multivitamin (Multi Vitamin Daily), Unknown Dose PO DAILY, (Reported) Naproxen (Naproxen), Unknown Dose PO DAILY, (Reported) Oxybutynin Chloride (Oxybutynin Chloride), 2 TAB PO HS, (Reported) Past Medical History 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*, 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 Past Surgical History: noncontributory, orthopedic surgeries Patient History: FH: hypertension FATHER, Name: Karsten Rangel (DM), Age: 70 FH: type 2 diabetes FATHER, Name: Karsten Rangel (DM), Age: 70 Alcohol Use: Alcoholic Drug Use: none Lives with: Other Lives In: Home Physical Exam Physical Exam Vital Signs: Temperature: 98.4, Source: Oral, Heart Rate: 80, Respiratory Rate: 18, BP: 145/94, Pulse Oximetry: 96, Weight: 66.000 Oxygen Flow Rate: 0 Progress Results/Orders Results/Orders Orders - DONNELL MOSLEY WIRE WHEELER Culture Blood (02/22/25 14:10) Chest,Single View (02/22/25 14:10) Monitor (02/22/25 14:10) Saline Lock (02/22/25 14:10) Straight Cath For Urine Sample (02/22/25 14:10) Cult Urine + [place] [address] (02/22/25 16:05) Page Hospitalist (02/22/25 ) Completed Orders - DONNELL MOSLEY WIRE WHEELER Cbc/Diff (02/22/25 14:10) Chest,Single View (02/22/25 14:10) Procalcitonin (02/22/25 14:10) BMP (02/22/25 14:10) Lacticsepsis (02/22/25 14:10) Ua W/Microscopic, Cult If Ind (02/22/25 15:39) Ceftriaxone 2gm/D5w 50ml Bag (Rocephin 2 (02/22/25 16:25) Normal Saline 1000ml (0.9% Sodium Chlori (02/22/25 16:35) C-Reactive Protein (02/22/25 15:00) Lipid Panel (02/22/25 15:00) TSH (02/22/25 15:00) Medications Received in ER Medications (Trade) Dose Ordered Sig/Luis Route PRN Reason Start Time Stop Time Status Last Admin Dose Admin Ceftriaxone Sodium/Dextrose 50 ml @ 100 mls/hr NOW ONCE IV 02/22/25 16:25 02/22/25 16:54 DC 02/22/25 16:42 100 MLS/HR (0.9% sodium chloride (NS) 1000ml IV soln) 1,000 ml ONCE ONCE IVB 02/22/25 16:35 02/22/25 16:36 DC 02/22/25 16:42 1,000 ML Vital Signs 02/22/25 02/22/25 02/22/25 13:41 15:29 16:42 Temp 98.4 Pulse 80 85 80 Resp 18 16 13 B/P (MAP) 145/94 127/77 (94) 107/65 (79) Pulse Ox 96 96 98 O2 Flow Rate 0 0 Laboratory Tests Test 02/22/25 14:48 02/22/25 14:55 02/22/25 15:00 02/22/25 15:39 White Blood Count 8.5 Red Blood Count 4.13 L Hemoglobin 12.5 L Hematocrit 36.3 L Mean Corpuscular Volume 88.0 Mean Corpuscular Hemoglobin 30.2 Mean Corpuscular Hemoglobin Concent 34.4 Red Cell Distribution Width 15.0 H Platelet Count 211 Mean Platelet Volume 7.7 Neutrophils (%) (Auto) 74.5 Lymphocytes (%) (Auto) 19.0 L Monocytes (%) (Auto) 5.1 Eosinophils (%) (Auto) 1.1 Basophils (%) (Auto) 0.3 Neutrophils # (Auto) 6.4 Lymphocytes # (Auto) 1.6 Monocytes # (Auto) 0.4 Eosinophils # (Auto) 0.1 Basophils # (Auto) 0.0 CBC Comment Lactic Acid Level 1.2 Procalcitonin < 0.05 Sodium Level 144 Potassium Level 3.6 Chloride Level 109 H Carbon Dioxide Level 26.2 Anion Gap 9 Blood Urea Nitrogen 7 Creatinine 0.58 L Estimated GFR/1.73 m2 > 90 BUN/Creatinine Ratio 12.1 Glucose Level 85 Calcium Level 8.0 L C-Reactive Protein 0.39 Albumin 2.8 L Triglycerides Level 167 H Cholesterol Level 204 H LDL Cholesterol 130 H HDL Cholesterol 43 Cholesterol/HDL Ratio 4.7 Thyroid Stimulating Hormone (TSH) 2.45 Chemistry Comments Urine Specimen Description Non-specified Urine Color Yellow Urine Clarity Slightly cloudy Urine pH 7.5 Urine Specific [place] 1.015 Urine Protein Trace Urine Glucose (UA) Negative Urine Ketones Negative Urine Occult Blood Large H Urine Nitrite Positive H Urine Bilirubin Negative Urine Urobilinogen 2.0 H Urine Leukocyte Esterase Negative Urine RBC 20-50 Urine WBC 20-30 H Urine Squamous Epithelial Cells Few Urine Bacteria 4+ Urine Culture Indicated Indicated Volume Urine Centrifuged 10 ml Urine Comment Microbiology Date/Time Source Procedure Growth Status 02/22/25 16:05 Urine Nonspecified Urine Culture - Preliminary Culture received. Resulted 02/22/25 14:55 Blood Hand Left Blood Culture - Preliminary NEGATIVE (LESS THAN 24 HOURS) Resulted Medical Decision Making Findings This 44-year-old male presented somewhat toxic-appearing on arrival. Remained hemodynamically stable. However his urinalysis came back positive nitrites and urinary tract infection. Based on the purulent discharge of the nurse reported high suspect pyelonephritis. Therefore started him on Rocephin and requested hospital admission Differential Dx:Considerations: Include: AAA, Aortic dissection, Appendicitis, Bowel obstruction, Cholelithiasis, Cholangitis, DJD, Fracture, Hepatitis, HNP, Musculoskeletal pain, Pancreatitis, Pyelonephritis, Renal infarction, Strain, Urinary obstruction, Urolithiasis, Urinary tract infection, Other Departure Disposition: ADMITTED INPATIENT Impression: Primary Impression: Pyelonephritis Referrals: NO PRIMARY CARE PROVIDER (PCP) Signature Scribe Signature: r Attestation: Scribed for Donnell Mosley Postal Superintendent by Donnell Mcclure NP . 02/22/25 19:54 DONNELL MOSLEY NP Feb 22, 2025 14:21
--- NOTE | 2025-02-22 14:32 | RADIOLOGY REPORT ---
DI CHEST,SINGLE VIEW, HISTORY: paralysis COMPARISON: CT CT CHEST ABDOMEN PELVIS W/ IV ORAL CONTRAST on DOS: 10/24/24, DI CHEST,SINGLE VIEW on DOS: 10/22/24, DI CHEST,SINGLE VIEW on DOS: 04/03/[address] CHEST ABDOMEN PELVIS W/ IV ORAL CONTRAST on DOS: 10/24/24, DI CHEST,SINGLE VIEW on DOS: 10/22/24, DI CHEST,SINGLE VIEW on DOS: 04/03/23 TECHNICAL DATA: 1 view of the chest was obtained. FINDINGS: Lines and tubes: None Cardiomediastinal silhouette: normal Pulmonary vasculature: normal Lung expansion: normal Lung airspace: normal Lung interstitium: normal Pleura: normal Pneumothorax: no Bones: Unremarkable Other: no IMPRESSION: No acute intrathoracic abnormality.
[2025-02-22 15:21] LABS: MEAN PLATELET VOLUME 7.7 FL (7.4-10.4); RED CELL DISTRIBUTION WIDTH 15.0 % (11.5-14.5)
[2025-02-22 15:22] LABS: CREATININE 0.58 MG/DL (0.60-1.10); TOTAL CARBON DIOXIDE 26.2 MMOL/L (24-32); eCRCL 149 ML/MIN; eGFR > 90 ML/MIN
[2025-02-22 15:58] LABS: LEUKOCYTE ESTERASE ,URINE NEGATIVE (Neg); NITRITES, URINE POSITIVE (Neg); OCCULT BLOOD,URINE LARGE (Neg)
[2025-02-22 16:01] LABS: UA COLLECTION TYPE NON-SPECIFIED
[2025-02-22 16:04] LABS: SQUAMOUS EPITHELIAL CELL,UR FEW /LPF (FEW)
[2025-02-22] MEDS: normal saline 1000ML IV soln IVB ONE (16:42)
[2025-02-22] MEDS: CefTRIAXone 2gm/D5W 50ml BAG 50 ML IV ONE (16:42)
[2025-02-22] MEDS ORDERED: magnesium sulf-water 2g/50mL 50 ML IV PRN (17:55)
[2025-02-22] MEDS ORDERED: magnesium sulf-water 4G/100mL 100 ML IV PRN (17:55)
[2025-02-22] MEDS ORDERED: morphine 4 MG/ML inj SYRINge IV PRN (17:55)
[2025-02-22] MEDS ORDERED: potassium Cl 20 mEq SR tablet PO PRN ×2 (17:55)
[2025-02-22] MEDS ORDERED: magnesium hydroxide 30ml (MOM) UD suspension PO PRN (17:55)
[2025-02-22] MEDS ORDERED: potassium Cl 40MEQ/1/2NS 520ml 520 ML IV PRN (17:55)
[2025-02-22] MEDS ORDERED: ondansetron/PF 4mg/2ml inj IV PRN (17:55)
[2025-02-22] MEDS ORDERED: mag hydrox/Alum hydrox/simeth 30ml oral suspension PO PRN (17:55)
[2025-02-22] MEDS: levoFLOXACIN-Levaquin 500mg/D5 100 ML IV SCH (18:37)
--- NOTE | 2025-02-22 18:54 | HISTORY AND PHYSICAL-Residence ---
History & Physical Providers to CC Resident Creating Document: ROMEROANGELINETIMOTHYZANE ~ History of Present Illness Primary Medical Doctor: RFA Reason for Admit\Complaint: Back Pain History of Present Illness This is a 46-year-old male with past medical history, of spinal cord injury presented in ER with complain of back pain for the past 3 days. Patient reports that back pain started suddenly and it is more towards mid back, he describes the pain as 10/10 in intensity and progressive and dull in nature radiates to both lower legs and reports no aggravating or relieving He denies nausea, vomiting, chest pain, palpitation diaphoresis. There are no urinary symptoms such as dysuria, frequency or hematuria. In addition to that he also reports that he developed muscle spasms in the back and bilateral legs for the past three days, which she described it as a shaking in both legs. Apart from that he has spinal cord injury in 2010, due to which he is bed-bound since 2010 and uses wheelchair, although he reports that he has chronic back pain history per this time this back pain is different. He also reports of muscle cramps after spinal cord injury, for which he takes baclofen Allergies: Coded Allergies: Penicillins (Verified Allergy, Unknown, 02/22/25) >5 years, hives, no treatment, PEN-FAST 2 Sulfa (Sulfonamide Antibiotics) (Verified Allergy, Unknown, 02/22/25) Home Medications Home Medications Active Reported Melatonin 5 Mg Capsule 1 Cap PO HS Acidophilus (Lactobacillus Acidophilus) Unknown Strength Tablet Unknown Dose PO DAILY Multi Vitamin Daily (Multivitamin) Unknown Strength Tablet Unknown Dose PO DAILY Folic Acid* (Folic Acid) 0.4 Mg Tablet 1 Tab PO DAILY Gabapentin Unknown Strength Capsule Unknown Dose PO Q8H Naproxen Unknown Strength Tablet Unknown Dose PO DAILY Oxybutynin Chloride 5 Mg Tablet 2 Tab PO HS Baclofen 10 Mg Tablet 1 Tab PO Q6H Past Medical History Past Medical History Hypertension Spinal cord injury Past Surgical History Surgical History Comment He reports he had C5-C6 fracture and bruising of the C4 and underwent neck surgery. Family History Family History: FH: hypertension FATHER, Name: Karsten Rangel (DM), Age: 70 FH: type 2 diabetes FATHER, Name: Karsten Rangel (DM), Age: 70 Past Social History Social History Comment Denies smoking history He drinks 6-7 glasses of vodka daily her his last drink was three weeks Denies recreational drug use He lives in home alone and has a caregiver who comes 3 times in a week. Alcohol Use: Alcoholic Lives with: Other ROS ROS All reviewed and negative except for pertinent positive findings mentioned in HPI Exam Vitals: Vital Signs Date Time Temp Pulse Resp B/P (MAP) Pulse Ox O2 Delivery O2 Flow Rate FiO2 02/22/25 18:37 98.1 72 16 149/88 (108) 98 02/22/25 15:29 0 General: General: awake, alert oriented to place, time, and person HEENT: No pallor present, no icterus, moist mucous membranes Neck: No masses and tenderness Resp: Unlabored. Lungs clear to auscultation bilaterally. Chest: Normal expansion. Cardiovascular: Regular Rate and rhythm, normal S1 and S2 without murmur, rub or gallop Abdomen: Soft and non tender in epigastrium, no organomegaly, no guarding and rigidity, bowel sounds present CVA Tenderness left side Neuro: power of the muscles 2/5 bilateral lower extremities, normal reflexes bilaterally. Cranial nerves intact. Gait could not be assessed Upper extremities power 3/5, reflexes normal. Contractures in both hands fingers noted Numbness below the chest No cyanosis,clubbing or edema in upper or lower extremities noted. Skin: Warm and Dry. Psych: Normal affect Diagnostic Data Last Recorded Lab Results: 02/22/25 1448 02/22/25 1500 Advance Care Planning Advanced Care plannin - 30 Minutes (I Spent 17 in discussing various resuscitative measures with the patient and he chose to be DNR) Additional Plan This is a 46-year-old male with past medical history, of spinal cord injury presented in ER with complain of back pain for the past 3 days, admitted in view of UTI, as UA suggestive of UTI. Complicated UTI/Possibly Acute Pyelonephritis UA suggestive of UTI and large occult blood Left-sided CVA tenderness WBC count normal ESR CRP awaiting Procal normal Started patient on levofloxacin 500 mg daily. Follow up with urine culture, last urine culture in October 2024 was positive for E coli. Alcohol Use Disorder Patient last drink was three weeks Started patient on Librium 25 mg Q6h Prn Started patient on folic acid and multivitamin Substance use navigator consulted Muscle spasm/Muscle Cramps Possibly Secondary to Spinal Cord Injury Patient takes baclofen at home Reports muscle spasm since three days Administered one dose of IV Valium 5 mg Chronic Back Pain Morphine and hydromorphone p.r.n Code status: DNR GI prophylaxis: pantoprazole IV 40 mg DVT prophylaxis heparin Timothy Romero PGY 1 Internal Medicine Disposition: Patient is admitted for UTI, patient has chronic neurological symptoms due to his spinal cord injury Date of Service: Feb 22, 2025 Billing Provider: HARVINDER LEGER MD Common Visit Codes: [id number] INP/OBS CARE (HIGH) Secondary Visit Codes: [id number] CARE PLAN 30 MINUTES TIMOTHY ROMERO, RES Feb 22, 2025 18:54 HARVINDER LEGER MD Feb 25, 2025 06:49
[2025-02-22 19:16] LABS: CHOL/HDL RATIO 4.7 (0.00-4.99); LDL CHOLESTEROL 130 MG/DL (50-100)
[2025-02-22] MEDS: diazepam inj 5 MG/ML inj. IV ONE (19:50)
[2025-02-22] MEDS: K and/or MAG REPLACEMENT MC SCH (20:00)
[2025-02-22] MEDS: docusate sod 100mg capsule PO SCH (20:13)
[2025-02-22] MEDS: heparin, porcine 5000 units/ml vial SQ SCH (20:15)
[2025-02-22] MEDS: HYDROmorphone/PF 0.2 MG/ML SYRINGE IV PRN (20:18)
[2025-02-22 21:30] VITALS: BP 152/87; PULSE 74; RESP 20; TEMP 97.8; O2SAT 96
[2025-02-22 22:00] VITALS: BP 155/92; PULSE 64; RESP 20; O2SAT 96; O2SAT 98
[2025-02-23] MEDS: HYDROcodone/acetaminophen 5mg/325mg tablet PO PRN (01:27)
[2025-02-23 05:00] VITALS: BP 153/89; PULSE 66; RESP 16; TEMP 97.9; O2SAT 95
[2025-02-23 06:09] LABS: APTT 25 SECONDS (22-32); INR 1.1 INR
[2025-02-23 06:11] LABS: MEAN PLATELET VOLUME 8.2 FL (7.4-10.4); RED CELL DISTRIBUTION WIDTH 15.3 % (11.5-14.5)
[2025-02-23 06:34] LABS: CREATININE 0.58 MG/DL (0.60-1.10); PHOSPHORUS 3.4 MG/DL (2.3-4.5); TOTAL CARBON DIOXIDE 28.0 MMOL/L (24-32); eCRCL 149 ML/MIN; eGFR > 90 ML/MIN
[2025-02-23] MEDS: multivitamins, therapeutics tablet PO SCH (07:19)
[2025-02-23] MEDS: normal saline 500ml IV soln 500 ML IV SCH (07:40)
[2025-02-23] MEDS: magnesium Cl slow-release 64mg tablet PO PRN (09:37)
[2025-02-23 10:04] VITALS: RESP 16
[2025-02-23] MEDS: ringers solution, lacted 1,000 ML IV SCH (10:32)
[2025-02-23] MEDS: oxyCODONE/APAP 5-325mg tablet PO PRN (10:36)
[2025-02-23 11:29] VITALS: BP 121/78; PULSE 77; RESP 18; TEMP 97.5; O2SAT 97
--- NOTE | 2025-02-23 15:22 | PROGRESS NOTE- Residence ---
Progress Note - Resident Providers to CC Resident Creating Document: DANNY ROMERO RES ~ Antibiotic Timeout Antibiotic Ordered?: Yes Subjective Patient was seen and examined on bedside, he was complaining of back pain about 7/10 in intensity. In addition to that he told that he has a history of urinary retention and urinary incontinence, mostly urinary retention for which he he do self-catheterization and most of the time he go to restroom by himself without needing catheter Urinary problems as per patient occurred after spinal cord injury. Objective Vital Signs Date Time Temp Pulse Resp B/P (MAP) Pulse Ox O2 Delivery O2 Flow Rate FiO2 02/23/25 11:36 16 02/23/25 11:29 97.5 77 121/78 (92) 97 Room Air 02/23/25 10:04 0.0 Result Diagram: 02/23/2551102/23/25511 General: General: awake, alert oriented to place, time, and person HEENT: No pallor present, no icterus, moist mucous membranes Neck: No masses and tenderness Resp: Unlabored. Lungs clear to auscultation bilaterally. Chest: Normal expansion. Cardiovascular: Regular Rate and rhythm, normal S1 and S2 without murmur, rub or gallop Abdomen: Soft and non tender in epigastrium, no organomegaly, no guarding and rigidity, bowel sounds present CVA Tenderness left side Neuro: power of the muscles 2/5 bilateral lower extremities, normal reflexes bilaterally. Cranial nerves intact. Gait could not be assessed Upper extremities power 3/5, reflexes normal. Contractures in both hands fingers noted Numbness below the chest No cyanosis,clubbing or edema in upper or lower extremities noted. Skin: Warm and Dry. Psych: Normal affect Coagulation Studies Laboratory Tests Test 02/23/25 05:12 Prothrombin Time 11.1 SECONDS (9.0-12.0) INR International Normalized Ratio 1.1 INR Activated Partial Thromboplast Time 25 SECONDS (22-32) Coagulation Comments Advance Care Planning Advanced Care plannin - 30 Minutes Plan Plan This is a 46-year-old male with past medical history, of spinal cord injury presented in ER with complain of back pain for the past 3 days, admitted in view of UTI, as UA suggestive of UTI. Complicated UTI/Possibly Acute Pyelonephritis UA suggestive of UTI and large occult blood Left-sided CVA tenderness WBC count normal ESR high Procal normal and CRP normal Continue on levofloxacin 500 mg daily (day 2) Follow up with urine culture, last urine culture in October 2024 was positive for E coli Preliminary urine culture positive for Gram-negative rods Alcohol Use Disorder Patient last drink was three weeks Started patient on Librium 25 mg Q6h Prn Started patient on folic acid and multivitamin Substance use navigator consulted Muscle spasm/Muscle Cramps Possibly Secondary to Spinal Cord Injury Patient takes baclofen at home Reports muscle spasm since three days Administered one dose of IV Valium 5 mg Hypomagnesemia Possibly Secondary to Chronic Alcohol Use Mg 1.2 Patient is on mg protocol Received Magnesium Cholride tablet 128 mg Follow up with CMP Chronic Back Pain Morphine, perocet and dilaudid All above pain meds are prn. Code status: DNR GI prophylaxis: pantoprazole IV 40 mg DVT prophylaxis heparin Danny Romero PGY 1 Internal Medicine Disposition: Patient is admitted for UTI, continuing antibiotic levofloxacin Date of Service: Feb 23, 2025 Billing Provider: HARVINDER LEGER MD Common Visit Codes: [id number] INP/OBS CARE(HIGH) DANNY ROMERO, RES Feb 23, 2025 15:22 HARVINDER LEGER MD Feb 25, 2025 06:49
[2025-02-23 18:00] VITALS: BP 131/85; PULSE 86; RESP 18; TEMP 97.6; O2SAT 96
[2025-02-23 20:00] VITALS: RESP 18; O2SAT 96
[2025-02-23 22:00] VITALS: BP 132/85; PULSE 66; RESP 16; TEMP 98.1; O2SAT 98
[2025-02-24 06:42] LABS: MEAN PLATELET VOLUME 8.6 FL (7.4-10.4); RED CELL DISTRIBUTION WIDTH 14.9 % (11.5-14.5)
[2025-02-24 06:48] LABS: CREATININE 0.60 MG/DL (0.60-1.10); PHOSPHORUS 3.7 MG/DL (2.3-4.5); TOTAL CARBON DIOXIDE 29.4 MMOL/L (24-32); eCRCL 144 ML/MIN; eGFR > 90 ML/MIN
[2025-02-24 06:50] LABS: APTT 27 SECONDS (22-32); INR 1.1 INR
[2025-02-24 06:51] VITALS: BP 132/93; PULSE 83; RESP 18; TEMP 98.5; O2SAT 96
[2025-02-24 11:24] VITALS: BP 134/88; PULSE 84; RESP 18; TEMP 97.8; O2SAT 95
--- NOTE | 2025-02-24 13:39 | PROGRESS NOTE- Residence ---
Progress Note - Resident Providers to CC Resident Creating Document: DANNY ROMERO RES ~ Antibiotic Timeout Antibiotic Ordered?: Yes Subjective Patient was seen and examined on bedside, he reports no back pain, denies nausea and vomitting. Objective Vital Signs Date Time Temp Pulse Resp B/P (MAP) Pulse Ox O2 Delivery O2 Flow Rate FiO2 02/24/25 11:24 97.8 84 18 134/88 (103) 95 Room Air 02/24/25 08:40 0.0 Result Diagram: 02/24/2552002/24/25520 General: General: awake, alert oriented to place, time, and person HEENT: No pallor present, no icterus, moist mucous membranes Neck: No masses and tenderness Resp: Unlabored. Lungs clear to auscultation bilaterally. Chest: Normal expansion. Cardiovascular: Regular Rate and rhythm, normal S1 and S2 without murmur, rub or gallop Abdomen: Soft and non tender in epigastrium, no organomegaly, no guarding and rigidity, bowel sounds present CVA Tenderness left side Neuro: power of the muscles 2/5 bilateral lower extremities, normal reflexes bilaterally. Cranial nerves intact. Gait could not be assessed Upper extremities power 3/5, reflexes normal. Contractures in both hands fingers noted Numbness below the chest No cyanosis,clubbing or edema in upper or lower extremities noted. Skin: Warm and Dry. Psych: Normal affect Coagulation Studies Laboratory Tests Test 02/24/25 05:21 Prothrombin Time 11.3 SECONDS (9.0-12.0) INR International Normalized Ratio 1.1 INR Activated Partial Thromboplast Time 27 SECONDS (22-32) Coagulation Comments Advance Care Planning Advanced Care plannin - 30 Minutes Plan Plan This is a 46-year-old male with past medical history, of spinal cord injury presented in ER with complain of back pain for the past 3 days, admitted in view of UTI, as UA suggestive of UTI. Complicated UTI/Possibly Acute Pyelonephritis UA suggestive of UTI and large occult blood Left-sided CVA tenderness WBC count normal ESR high Procal normal and CRP normal Continue on levofloxacin 500 mg daily (day 2) Follow up with urine culture, last urine culture in October 2024 was positive for E coli Preliminary urine culture positive for Gram-negative rods 02/24/25 Continue on levofloxacin 500 mg daily (day 3) Final urine cultures positive for Proteus mirabilis and E coli Alcohol Use Disorder Patient last drink was three weeks Started patient on Librium 25 mg Q6h Prn Started patient on folic acid and multivitamin Substance use navigator consulted Muscle spasm/Muscle Cramps Possibly Secondary to Spinal Cord Injury Patient takes baclofen at home Reports muscle spasm since three days Administered one dose of IV Valium 5 mg Hypomagnesemia Possibly Secondary to Chronic Alcohol Use Mg 1.2 Patient is on mg protocol Received Magnesium Cholride tablet 128 mg Follow up with CMP 02/24/25 Mg still low 1.2 Patient is on mg protocol Follow-up with CMP Chronic Back Pain Morphine, perocet and dilaudid All above pain meds are prn. Code status: DNR GI prophylaxis: pantoprazole IV 40 mg DVT prophylaxis heparin Danny Romero PGY 1 Internal Medicine Disposition: Continue IV antibiotic levofloxacin, patient would possibly go to rehab tomorrow, patient will be discharged with p.o. antibiotics. Date of Service: Feb 24, 2025 Billing Provider: HARVINDER LEGER MD Common Visit Codes: [id number] INP/OBS CARE(HIGH) DANNY ROMERO, RES Feb 24, 2025 13:39 HARVINDER LEGER MD Feb 25, 2025 06:50
[2025-02-24] MEDS ORDERED: GABA-530 PO (15:42)
[2025-02-24 18:00] VITALS: BP 106/64; PULSE 86; RESP 14; TEMP 99.4; O2SAT 95
[2025-02-24 20:00] VITALS: RESP 18; O2SAT 96
[2025-02-24 22:00] VITALS: BP 122/71; PULSE 73; RESP 16; TEMP 99.1; O2SAT 96
[2025-02-25 05:50] LABS: MEAN PLATELET VOLUME 8.9 FL (7.4-10.4); RED CELL DISTRIBUTION WIDTH 15.7 % (11.5-14.5)
[2025-02-25 06:07] LABS: APTT 29 SECONDS (22-32); INR 1.1 INR
[2025-02-25 06:21] LABS: CREATININE 0.64 MG/DL (0.60-1.10); PHOSPHORUS 3.7 MG/DL (2.3-4.5); TOTAL CARBON DIOXIDE 26.2 MMOL/L (24-32); eCRCL 135 ML/MIN; eGFR > 90 ML/MIN
[2025-02-25 06:48] VITALS: BP 115/66; PULSE 78; RESP 16; TEMP 99.6; O2SAT 94
[2025-02-25 10:00] VITALS: BP 119/66; PULSE 72; RESP 17; TEMP 97.9; O2SAT 95
--- NOTE | 2025-02-25 13:56 | PROGRESS NOTE- Residence ---
Progress Note - Resident Providers to CC Resident Creating Document: BEV GARCÍA RES ~ Antibiotic Timeout Antibiotic Ordered?: Yes Subjective The patient was examined at the bedside. He reports experiencing severe spasms and difficulty transferring from the bed to the wheelchair. Additionally, he complains of recurrent back pain, which is partially alleviated by opioids. No other symptoms have been reported, including fever, shortness of breath, abdominal pain, or urinary retention. The patient also did not report any overnight events. Objective Vital Signs Date Time Temp Pulse Resp B/P (MAP) Pulse Ox O2 Delivery O2 Flow Rate FiO2 02/25/25 11:20 16 02/25/25 10:00 97.9 72 119/66 (83) 95 Room Air 02/25/25 08:30 0.0 Result Diagram: 02/25/2542002/25/25420 General: Awake, alert, and oriented to place, time, and person. HEENT: No pallor present, no icterus; mucous membranes are moist. Neck: No masses or tenderness noted. Respiratory: Unlabored breathing; lungs clear to auscultation bilaterally. Chest: Normal expansion observed. Cardiovascular: Regular rate and rhythm; normal S1 and S2 without murmurs, rubs, or gallops. Abdomen: Soft and non-tender in the epigastric region; no organomegaly; no guarding or rigidity; bowel sounds are present. CVA tenderness negative today. Neurological: Muscle power in bilateral lower extremities is 2/5, tone is increased, muscle spasm is noted to palpation, normal reflexes bilaterally. Cranial nerves are intact. Gait could not be assessed. Muscle power in upper extremities is 4/5; reflexes are normal. Contractures in both hands and fingers are noted. Numbness below the chest is present. No cyanosis, clubbing, or edema in the upper or lower extremities. Skin: Warm and dry. Psychiatric: Normal affect. Coagulation Studies Laboratory Tests Test 02/25/25 04:21 Prothrombin Time 11.3 SECONDS (9.0-12.0) INR International Normalized Ratio 1.1 INR Activated Partial Thromboplast Time 29 SECONDS (22-32) Coagulation Comments Plan Plan Assessment This is a 46-year-old male with a history of spinal cord injury who presented to the emergency room with complaints of back pain lasting for the past 3 days. He was admitted due to a complicated urinary tract infection. The patient has shown improvement with antibiotics and is pending placement. 1. Complicated UTI / Acute Pyelonephritis - Neurogenic bladder secondary to prior spinal injury - The patient complains of severe back pain. - Physical examination revealed significant left-sided costovertebral angle tenderness. - Laboratory results: WBC 8.5, ESR 32, procalcitonin < 0.05 - Urinalysis: Nitrite positive, WBC 2030 - Urine culture: E. coli pansensitive and Proteus multisensitive Plan: - Continue levofloxacin 500 mg daily (currently Day 3). - The patient can be discharged on oral antibiotics. - Discontinue IV fluids. - Pain management with Percocet. 2. Alcohol Use Disorder - The patient typically consumes 6-7 alcoholic drinks daily. - No signs of alcohol withdrawal were observed during the admission. Plan: - Initiated Librium 25 mg every 6 hours as needed. - Started folic acid and a multivitamin. - Consulted substance use navigator. 3. Spinal Cord Injury - Complicated by paraplegia, muscle spasms, and neurogenic bladder. - The patient exhibits severe muscle spasms upon palpation. Plan: - Continue baclofen 10 mg every 6 hours. - Continue gabapentin 500 mg daily. - Administer diazepam 5 mg orally every 8 hours as needed. 4. Mild Hypomagnesemia - Possibly secondary to chronic alcohol use. - Hypomagnesemia may be contributing to the muscle spasms. Current magnesium level is 1.2. Plan: - Administer magnesium replacement per protocol. - Monitor magnesium levels daily. Code Status: Full code DVT Prophylaxis: Heparin Analgesia/Sedation: Dilaudid, Percocet Line/Tube: PIV GI Prophylaxis: Pantoprazole Nutrition: Regular diet Prognosis: Guarded Disposition: Continue medical treatment. The patient has been referred to rehabilitation and is pending placement. Date of Service: Feb 25, 2025 Billing Provider: HARVINDER LEGER MD Common Visit Codes: [id number] INP/OBS CARE(HIGH) BEV GARCÍA, ZANE Feb 25, 2025 13:56 HARVINDER LEGER MD Feb 26, 2025 07:56
[2025-02-25 18:00] VITALS: BP 123/76; PULSE 89; RESP 18; TEMP 98.6; O2SAT 96
[2025-02-25] MEDS ORDERED: potassium Cl 40MEQ/1/2NS 520ml 520 ML IV PRN (19:30)
[2025-02-25] MEDS ORDERED: potassium Cl 20 mEq SR tablet PO PRN ×2 (19:30)
[2025-02-25] MEDS ORDERED: magnesium sulf-water 4G/100mL 100 ML IV PRN (19:30)
[2025-02-25] MEDS ORDERED: magnesium sulf-water 2g/50mL 50 ML IV PRN (19:30)
[2025-02-25 20:00] VITALS: RESP 18; O2SAT 96
[2025-02-25] MEDS: magnesium Cl slow-release 64mg tablet PO PRN (21:34)
[2025-02-25 22:00] VITALS: BP 126/73; PULSE 93; RESP 15; TEMP 98.4; O2SAT 95
[2025-02-26 04:45] LABS: MEAN PLATELET VOLUME 8.2 FL (7.4-10.4); RED CELL DISTRIBUTION WIDTH 15.7 % (11.5-14.5)
[2025-02-26 04:51] LABS: INR 1.1 INR
[2025-02-26 04:55] LABS: CREATININE 0.56 MG/DL (0.60-1.10); PHOSPHORUS 2.9 MG/DL (2.3-4.5); TOTAL CARBON DIOXIDE 25.6 MMOL/L (24-32); eCRCL 154 ML/MIN; eGFR > 90 ML/MIN
[2025-02-26 06:00] VITALS: BP 118/70; PULSE 94; RESP 16; TEMP 100.4; O2SAT 94
[2025-02-26 08:00] VITALS: RESP 16; O2SAT 94
[2025-02-26] MEDS: pantoprazole 40mg Tablet.DR PO SCH (08:22)
[2025-02-26] MEDS: normal saline 500ml IV soln 500 ML IV ONE ×2 (17:05→19:13)
[2025-02-26] MEDS: normal saline 1000ml 1,000 ML IV SCH (17:12)
[2025-02-26 18:00] VITALS: BP 101/49; PULSE 97; RESP 19; TEMP 101.5; O2SAT 97
--- NOTE | 2025-02-26 19:13 | PROGRESS NOTE- Residence ---
Progress Note - Resident Providers to CC Resident Creating Document: DANNY ROMERO RES ~ Antibiotic Timeout Antibiotic Ordered?: Yes Subjective Patient, was seen and examined on the bedside he reports back pain /10 and denies nausea and vomiting Objective Vital Signs Date Time Temp Pulse Resp B/P (MAP) Pulse Ox O2 Delivery O2 Flow Rate FiO2 02/26/25 13:14 16 02/26/25 08:21 94 02/26/25 08:00 94 Room Air 02/26/25 06:00 100.4 118/70 (86) 02/25/25 08:30 0.0 Result Diagram: 02/26/2541602/26/25416 General: General: awake, alert oriented to place, time, and person HEENT: No pallor present, no icterus, moist mucous membranes Neck: No masses and tenderness Resp: Unlabored. Lungs clear to auscultation bilaterally. Chest: Normal expansion. Cardiovascular: Regular Rate and rhythm, normal S1 and S2 without murmur, rub or gallop Abdomen: Soft and non tender in epigastrium, no organomegaly, no guarding and rigidity, bowel sounds present CVA Tenderness left side Neuro: power of the muscles 2/5 bilateral lower extremities, normal reflexes bilaterally. Cranial nerves intact. Gait could not be assessed Upper extremities power 3/5, reflexes normal. Contractures in both hands fingers noted Numbness below the chest No cyanosis,clubbing or edema in upper or lower extremities noted. Skin: Warm and Dry. Psych: Normal affect Coagulation Studies Laboratory Tests Test 02/25/25 04:21 02/26/25 04:17 Activated Partial Thromboplast Time 29 SECONDS (22-32) Prothrombin Time 11.3 SECONDS (9.0-12.0) INR International Normalized Ratio 1.1 INR Coagulation Comments Advance Care Planning Advanced Care plannin - 30 Minutes Plan Plan Complicated UTI/Possibly Acute Pyelonephritis UA suggestive of UTI and large occult blood Left-sided CVA tenderness WBC count normal ESR high Procal normal and CRP normal Continue on levofloxacin 500 mg daily (day 2) Follow up with urine culture, last urine culture in October 2024 was positive for E coli Preliminary urine culture positive for Gram-negative rods 02/24/25 Continue on levofloxacin 500 mg daily (day 3) Final urine cultures positive for Proteus mirabilis and E coli 02/26/25 Patient has been transitioned to oral antibiotics Levaquin day 2 IV levofloxacine DCed Patient blood pressure was low in view of that received 750 ml bolus NS Temperature was 101.3 and after Tylenol his temperature went down to 99.5 lactic acid normal Continue monitoring blood pressure, Alcohol Use Disorder Patient last drink was three weeks Started patient on Librium 25 mg Q6h Prn Started patient on folic acid and multivitamin Substance use navigator consulted Muscle spasm/Muscle Cramps Possibly Secondary to Spinal Cord Injury Patient takes baclofen at home Reports muscle spasm since three days Administered one dose of IV Valium 5 mg 02/26/25 Patient is on Valium Q 8h p.r.n. for muscle spasm Hypomagnesemia Possibly Secondary to Chronic Alcohol Use Mg 1.2 Patient is on mg protocol Received Magnesium Cholride tablet 128 mg Follow up with CMP 02/24/25 Mg still low 1.2 Patient is on mg protocol Follow-up with CMP 02/26/25 Hypomagnesemia resolved Chronic Back Pain Morphine, perocet and dilaudid All above pain meds are prn. Code status: DNR GI prophylaxis: pantoprazole IV 40 mg DVT prophylaxis heparin Danny Romero PGY 1 Internal Medicine Disposition: Patient has been switched to oral antibiotics will be discharged tomorrow possibly, awaiting placement Please continue monitoring blood pressure Date of Service: Feb 26, 2025 Billing Provider: HARVINDER LEGER MD Common Visit Codes: [id number] INP/OBS CARE(HIGH) DANNY ROMERO, RES Feb 26, 2025 19:13 HARVINDER LEGER MD Feb 27, 2025 06:54
[2025-02-26 20:00] VITALS: RESP 18; O2SAT 96
[2025-02-26 22:00] VITALS: BP 109/62; PULSE 64; RESP 16; TEMP 99.4; O2SAT 94
[2025-02-27 06:21] LABS: MEAN PLATELET VOLUME 8.8 FL (7.4-10.4); RED CELL DISTRIBUTION WIDTH 16.6 % (11.5-14.5)
[2025-02-27 06:28] LABS: INR 1.1 INR
[2025-02-27 06:43] LABS: CREATININE 0.59 MG/DL (0.60-1.10); PHOSPHORUS 3.3 MG/DL (2.3-4.5); TOTAL CARBON DIOXIDE 24.1 MMOL/L (24-32); eCRCL 146 ML/MIN; eGFR > 90 ML/MIN
[2025-02-27 06:55] VITALS: BP 110/68; PULSE 70; RESP 16; TEMP 98.6; O2SAT 96
[2025-02-27 08:00] VITALS: RESP 17; O2SAT 96
[2025-02-27 10:00] VITALS: BP 98/56; PULSE 82; RESP 17; TEMP 99.1; O2SAT 96
[2025-02-27 12:42] LABS: LEUKOCYTE ESTERASE ,URINE NEGATIVE (Neg); NITRITES, URINE NEGATIVE (Neg); OCCULT BLOOD,URINE NEGATIVE (Neg)
[2025-02-27 12:43] LABS: UA COLLECTION TYPE STRAIGHT CATH
--- NOTE | 2025-02-27 13:42 | RADIOLOGY REPORT ---
CHEST RADIOGRAPH Indication: fever Technique: Single frontal view of the chest was obtained COMPARISON: DI CHEST,SINGLE VIEW on DOS: 02/22/25, CT CT CHEST ABDOMEN PELVIS W/ IV ORAL CONTRAST on DOS: 10/24/24, DI CHEST,SINGLE VIEW on DOS: 10/22/24, DI CHEST,SINGLE VIEW on DOS: 04/03/23 FINDINGS: Lines and Tubes: None Lungs: Clear Pleura: No effusion. No pneumothorax. Cardiomediastinal contours: Unremarkable Bones: Unremarkable IMPRESSION: No acute disease.
--- NOTE | 2025-02-27 14:38 | VASCULAR REPORT ---
[facility] Vascular Department [facility] [address] [place] [address] [email or web address] VASCULAR Name : TERESA FINNEY Date : 02/27/2025 FESTING Accession# : [id number] Birthdate : 1980 Sex : M Blindstitch Lapel Padder : Cherry Almanza RVT Age : 44[address] : DANNY ROMERO, Preliminary Report The above named patient was referred for a NON-INVASIVE UPPER EXTREMITY VENOUS EXAMINATION. The evaluation includes grayscale imaging, color flow Doppler and spectral analysis of the major deep and superficial upper extremity veins. Left Upper Extremity Venous Study for DVT. Patient IN-PATIENT Indfation's Pain and swelling in left arm. Vein Imaging (Left) IJV (L): Compressible, Spontaneous, Respirophasic SCV (L): Spontaneous, Respirophasic Axillary (L): Compressible, Spontaneous, Respirophasic Brachial (L): Compressible, Spontaneous, Respirophasic Basilic (L): Compressible, Spontaneous, Respirophasic Cephalic (L): Compressible, Spontaneous, Respirophasic Radial (L): Compressible, Spontaneous, Respirophasic Ulnar (L): Compressible, Spontaneous, Respirophasic Impression: No sonographic evidence of deep venous thrombosis in the left upper extremity. Normal compressible veins with spontaneous, respirophasic flow throughout left arm.
--- NOTE | 2025-02-27 17:19 | PROGRESS NOTE- Residence ---
Progress Note - Resident Providers to CC Resident Creating Document: DANNY ROMERO RES ~ Antibiotic Timeout Antibiotic Ordered?: Yes Subjective Patient, was seen and examined on the bedside, he reported muscle spasms Denies nausea and vomitting. Objective Vital Signs Date Time Temp Pulse Resp B/P (MAP) Pulse Ox O2 Delivery O2 Flow Rate FiO2 02/27/25 16:51 18 02/27/25 10:00 99.1 82 98/56 (70) 96 Room Air 02/25/25 08:30 0.0 Result Diagram: 02/27/2545002/27/25450 General: General: awake, alert oriented to place, time, and person HEENT: No pallor present, no icterus, moist mucous membranes Neck: No masses and tenderness Resp: Unlabored. Lungs clear to auscultation bilaterally. Chest: Normal expansion. Cardiovascular: Regular Rate and rhythm, normal S1 and S2 without murmur, rub or gallop Abdomen: Soft and non tender in epigastrium, no organomegaly, no guarding and rigidity, bowel sounds present CVA Tenderness left side Neuro: power of the muscles 2/5 bilateral lower extremities, normal reflexes bilaterally. Cranial nerves intact. Gait could not be assessed Upper extremities power 3/5, reflexes normal. Contractures in both hands fingers noted swelling of left upper extremity , right upper extremity no swelling or cyanosis noted. No cyanosis,clubbing or edema in lower extremities noted Numbness below the chest Skin: Warm and Dry. Psych: Normal affect Coagulation Studies Laboratory Tests Test 02/25/25 04:21 02/27/25 04:51 Activated Partial Thromboplast Time 29 SECONDS (22-32) Prothrombin Time 11.0 SECONDS (9.0-12.0) INR International Normalized Ratio 1.1 INR Coagulation Comments Advance Care Planning Advanced Care plannin - 30 Minutes Plan Plan Complicated UTI/Possibly Acute Pyelonephritis UA suggestive of UTI and large occult blood Left-sided CVA tenderness WBC count normal ESR high Procal normal and CRP normal Continue on levofloxacin 500 mg daily (day 2) Follow up with urine culture, last urine culture in October 2024 was positive for E coli Preliminary urine culture positive for Gram-negative rods 02/24/25 Continue on levofloxacin 500 mg daily (day 3) Final urine cultures positive for Proteus mirabilis and E coli 02/26/25 Patient has been transitioned to oral antibiotics Levaquin day 2 IV levofloxacine DCed Patient blood pressure was low in view of that received 750 ml bolus NS Temperature was 101.3 and after Tylenol his temperature went down to 99.5 lactic acid normal Continue monitoring blood pressure, 02/27/25 In view of patient ever spike,ordered LA, UA , ESR,CRP ESR, CRP elevated Lactic acid is normal. Repeated UA which is not significant Patient had swelling of the left arm in view of that ordered VASCULAR US of left upper extremity which did not show any thrombosis. Chest X-Ray no acute disease noted Continue levaquin day 3 BP 110/68 Final Blood culture is negative. Repeated blood culture in view of fever, preliminary blood culture is negative, awaiting final culture Alcohol Use Disorder Patient last drink was three weeks Started patient on Librium 25 mg Q6h Prn Started patient on folic acid and multivitamin Substance use navigator consulted Muscle spasm/Muscle Cramps Possibly Secondary to Spinal Cord Injury Patient takes baclofen at home Reports muscle spasm since three days Administered one dose of IV Valium 5 mg 02/26/25 Patient is on Valium Q 8h p.r.n. for muscle spasm Hypomagnesemia Possibly Secondary to Chronic Alcohol Use Mg 1.2 Patient is on mg protocol Received Magnesium Cholride tablet 128 mg Follow up with CMP 02/24/25 Mg still low 1.2 Patient is on mg protocol Follow-up with CMP 02/26/25 Hypomagnesemia resolved Chronic Back Pain Morphine, perocet and dilaudid All above pain meds are prn. Code status: DNR GI prophylaxis: pantoprazole IV 40 mg DVT prophylaxis heparin Danny Romero PGY 1 Internal Medicine Disposition: Patient has been switched to oral antibiotics, tomorrow discharge am. Patient will be discharge tomorrow possibly to [facility] where he has been accepted. Date of Service: Feb 27, 2025 Billing Provider: HARVINDER LEGER MD Common Visit Codes: [id number] INP/OBS CARE(HIGH) DANNY ROMERO, RES Feb 27, 2025 17:19 HARVINDER LEGER MD Feb 28, 2025 10:15
[2025-02-27 18:00] VITALS: BP 113/68; PULSE 82; RESP 19; TEMP 99.8; O2SAT 95
[2025-02-27 20:00] VITALS: RESP 19; O2SAT 95
[2025-02-27 22:00] VITALS: BP 115/65; PULSE 83; RESP 16; TEMP 98.4; O2SAT 96
[2025-02-28 07:18] VITALS: BP 118/73; PULSE 93; RESP 14; TEMP 99.6; O2SAT 96
[2025-02-28 10:00] VITALS: BP 100/64; PULSE 90; RESP 17; TEMP 98.2; O2SAT 98
[2025-02-28 10:02] VITALS: BP_SYST 118; PULSE 93
[2025-02-28 12:21] LABS: MEAN PLATELET VOLUME 9.2 FL (7.4-10.4); RED CELL DISTRIBUTION WIDTH 16.2 % (11.5-14.5)
[2025-02-28 12:30] VITALS: RESP 16
[2025-02-28 12:40] LABS: CREATININE 0.50 MG/DL (0.60-1.10); TOTAL CARBON DIOXIDE 24.4 MMOL/L (24-32); eCRCL 172 ML/MIN; eGFR > 90 ML/MIN
--- NOTE | 2025-02-28 20:53 | DISCHARGE SUMMARY-Residence ---
Discharge Summary Providers to CC Resident Creating Document: HEATHERANGELINEDANNYZANE RITTER ~ Discharge Summary Admission Diagnosis: Pyelonephritis Hospital Course DATE OF ADMISSION: 02/1025 DATE OF DISCHARGE: 03/01/25 Discharge Diagnosis\Comment: Complicated UTI/Possibly Acute Pyelonephritis Secondary to Catheter Use Alcohol Use Disorder Muscle spasm/Muscle Cramps Possibly Secondary to Spinal Cord Injury Hypomagnesemia Resolved Chronic Back Pain Operations\Procedures: None Consultants: None Complications: None Condition on DC: Stable Discharge Summary: Hospital Course This is a 44-year-old male past medical history of spinal cord injury, alcohol use disorder presented in the ER with complaint of severe back pain 10/10 in intensity for the past three days, left costovertebral angle tenderess was present, workup revealed pauses due urinalysis for UTI elevated ESR CRP with a normal WBC count, for complicated UTI likely due to acute pyelonephritis patient was started on levofloxacin, urine culture L confirm infection with E coli and Proteus mirabilis. In addition to that patient also experienced muscle spasms during admission was treated diazepam 5 mg prn and blood pressure was elevated in view of this amlodipine 5 mg was initiated. For alcohol use disorder the patient was managed with librium 25 mg p.r.n, thiamine,multivitamins and substance use navigator was consulted. In addition to that patient left arm was swollen for which, vascular ultrasound was performed which did not show any thrombosis. Apart from that patient also developed fever spike during hospitalization, which improved with acetaminophen and because of fever spike chest xray ,repeat ESR,CRP,repeat UA and blood culture was performed. Preliminary blood culture is negative, awaiting final blood cutlure, chest x-ray not significant, lactic acid was normal and repeat UA was not significant. Patient also developed hypotensive episode for which IV BOLUS NS was given. The patient condition remained stable and was ready for discharge Physical Examination General: awake, alert oriented to place, time, and person HEENT: No pallor present, no icterus, moist mucous membranes Neck: No masses and tenderness Resp: Unlabored. Lungs clear to auscultation bilaterally. Chest: Normal expansion. Cardiovascular: Regular Rate and rhythm, normal S1 and S2 without murmur, rub or gallop Abdomen: Soft and non tender in epigastrium, no organomegaly, no guarding and rigidity, bowel sounds present CVA Tenderness left side Neuro: power of the muscles 2/5 bilateral lower extremities, normal reflexes bilaterally. Cranial nerves intact. Gait could not be assessed Upper extremities power 3/5, reflexes normal. Contractures in both hands fingers noted swelling of left upper extremity , right upper extremity no swelling or cyanosis noted. No cyanosis,clubbing or edema in lower extremities noted Numbness below the chest Skin: Warm and Dry. Psych: Normal affect Laboratory Tests Test 02/27/25 11:39 02/27/25 12:31 02/28/25 11:18 Erythrocyte Sedimentation Rate 94 MM/HR Lactic Acid Level 0.4 MMOL/L C-Reactive Protein 19.36 MG/DL Urine Specimen Description Straight cath Urine Color Yellow Urine Clarity Clear Urine pH 6.0 Urine Specific Marissa 1.025 Urine Protein Negative mg/dl Urine Glucose (UA) Negative mg/dl Urine Ketones Negative mg/dl Urine Occult Blood Negative Urine Nitrite Negative Urine Bilirubin Negative Urine Urobilinogen 0.2 E.U/dL Urine Leukocyte Esterase Negative Urine Culture Indicated Not ind Volume Urine Centrifuged 10 ml Urine Comment White Blood Count 9.7 X10'3 Red Blood Count 3.56 X10'6 Hemoglobin 10.9 g/dl Hematocrit 32.1 % Mean Corpuscular Volume 90.3 FL Mean Corpuscular Hemoglobin 30.6 PG Mean Corpuscular Hemoglobin Concent 33.9 g/dL Red Cell Distribution Width 16.2 % Platelet Count 150 X10'3 Mean Platelet Volume 9.2 FL Neutrophils (%) (Auto) 66.6 % Lymphocytes (%) (Auto) 18.4 % Monocytes (%) (Auto) 13.6 % Eosinophils (%) (Auto) 1.0 % Basophils (%) (Auto) 0.4 % Neutrophils # (Auto) 6.5 X10'3 Lymphocytes # (Auto) 1.8 X10'3 Monocytes # (Auto) 1.3 X10'3 Eosinophils # (Auto) 0.1 X10'3 Basophils # (Auto) 0.0 X10'3 CBC Comment Sodium Level 135 MMOL/L Potassium Level 3.8 MMOL/L Chloride Level 103 MMOL/L Carbon Dioxide Level 24.4 MMOL/L Anion Gap 8 Blood Urea Nitrogen 6 MG/DL Creatinine 0.50 MG/DL Estimated GFR/1.73 m2 > 90 ML/MIN BUN/Creatinine Ratio 12.0 Glucose Level 85 MG/DL Calcium Level 8.2 MG/DL Total Bilirubin 0.8 MG/DL Aspartate Amino Transf (AST/SGOT) 15 U/L Alanine Aminotransferase (ALT/SGPT) 8 U/L Alkaline Phosphatase 68 IU/L Total Protein 7.0 G/DL Albumin 2.2 G/DL Globulin 4.8 G/DL Albumin/Globulin Ratio 0.5 Chemistry Comments Imaging Vascular U/S Impression: No sonographic evidence of deep venous thrombosis in the left upper extremity. Normal compressible veins with spontaneous, respirophasic flow throughout left arm. Chest X-Ray IMPRESSION: No acute disease. *Problems/Diagnosis: (1) UTI (urinary tract infection) Status: Resolved Total Time Spent on D/C: > 30 Minutes Date of Service: Feb 28, 2025 Billing Provider: CHEPE TYSON MD,DANNY, RES Feb 28, 2025 20:53
== END 2025-02-28 15:27 | DRG 690 ==
LOC: ER 13:41 → ED HOLD 17:05 → SUR 3N 21:30
PROVIDERS: ADMIT Internal Medicine; ATTEND Internal Medicine
DX: N10 Acute pyelonephritis (principal); G82.20 Paraplegia, unspecified; Z66 Do not resuscitate; I10 Essential (primary) hypertension; G89.29 Other chronic pain; M54.89 Other dorsalgia; F10.90 Alcohol use, unspecified, uncomplicated; E83.42 Hypomagnesemia; Z88.0 Allergy status to penicillin; Z88.2 Allergy status to sulfonamides; Z79.899 Other long term (current) drug therapy
CPT/HCPCS: 36415; 71045; 80048; 80053; 80061; 81001; 81003; 82607; 82948; 83036; 83605; 83735; 84100; 84145; 84443; 85025; 85610; 85651; 85730; 86140; 87040; 87077; 87081; 87088; 87186; 93971; 96365; 97110; 97162; 97530; 99285; A4340; C1758; G0378; J0696; J1171; J1644; J1956; J2470; J3360; J7030; J7040; J7120